=== PATIENT | female | born 1940 | race Caucasian/White ===

== ENCOUNTER 2018-10-01 11:32 | Inpatient (IN) | payer MEDICARE, OTHER ==
--- NOTE | 2018-10-01 11:47 | ER Document Report ---
ED General - General Chief Complaint: Hip Pain Stated Complaint: FALL/LEFT HIP PAIN Time Seen by Provider: 10/01/18 11:41 Mode of Arrival: Medic Information source: Patient, Relative - daughter, Emergency Med Personnel Notes: Patient presents to the emergency department with left-sided hip pain. Reports she was seen in the house with her walker when she tripped over a wooden transition on the floor. She has not denies being dizzy when she fell. Reports she just was not looking where she was going. She reports she usually looks down when she walks but she was in a hurry today. She reports she did not hit her head. No other symptoms such nausea vomiting. She reports the medication they gave her by EMS helped with the pain TRAVEL OUTSIDE OF THE [place] IN LAST 30 DAYS: No - HPI Onset: Just prior to arrival Onset/Duration: Persistent Associated symptoms: None Exacerbated by: Movement Relieved by: Denies Similar symptoms previously: No Recently seen / treated by doctor: No - Related Data Allergies/Adverse Reactions: No Known Allergies Allergy (Verified 10/11/13 13:58) Past Medical History - General Information source: Patient, Relative, Emergency Med Personnel - Social History Smoking Status: Unknown if Ever Smoked Cigarette use (# per day): No Frequency of alcohol use: None Drug Abuse: None Lives with: Family Family History: Reviewed & Not Pertinent - Past Medical History Cardiac Medical History: Reports: Hx Hypertension Denies: Hx Coronary Artery Disease, Hx Heart Attack Pulmonary Medical History: Denies: Hx Asthma, Hx Bronchitis, Hx COPD, Hx Pneumonia Neurological Medical History: Reports: Hx Seizures. Denies: Hx Cerebrovascular Accident Renal/ Medical History: Denies: Hx Peritoneal Dialysis Malignancy Medical History: Reports: Hx Breast Cancer GI Medical History: Denies: Hx Hepatitis, Hx Hiatal Hernia, Hx Ulcer Musculoskeletal Medical History: Reports Hx Arthritis Infectious Medical History: Denies: Hx Hepatitis Past Surgical History: Reports: Hx Appendectomy, Hx Hysterectomy, Hx Mastectomy - left. Denies: Hx Open Heart Surgery, Hx Pacemaker - Immunizations Hx Diphtheria, Pertussis, Tetanus Vaccination: Yes - 2010 Review of Systems - Review of Systems Notes: Review HPI for review of systems., All other systems negative Physical Exam - Vital signs Vitals: Resp Pulse Ox 16 89 L 10/01/18 11:37 10/01/18 11:37 - General General appearance: Alert, Anxious In distress: None - HEENT Head: Normocephalic Eyes: Normal Extraocular movements intact: Yes Neck: Normal, Supple. No: Lymphadenopathy - Respiratory Respiratory status: No respiratory distress Chest status: Nontender Breath sounds: Normal Chest palpation: Normal - Cardiovascular Rhythm: Regular Heart sounds: Normal auscultation Murmur: No - Abdominal Inspection: Normal Distension: No distension Bowel sounds: Normal Tenderness: Nontender Organomegaly: No organomegaly - Extremities General upper extremity: Normal ROM Hip: Tender - Left hip tender to palpate, left leg shortening, good pedal pulse, normal cap refill, Unable to bear weight - Neurological Neuro grossly intact: Yes Cognition: Normal Orientation: AAOx4 Nancy Coma Scale Eye Opening: Spontaneous [place] Coma Scale Verbal: Oriented [place] Coma Scale Motor: Obeys Commands Nancy Coma Scale Total: 15 Speech: Normal - Psychological Associated symptoms: Normal affect, Normal mood - Skin Skin Temperature: Warm Skin Moisture: Dry Skin Color: Normal Course - Re-evaluation Re-evalutation: 10/01/18 12:40 8-year-old female presents today with left hip pain after falling. She is relatively healthy with history of seizures. Family reports no seizures in over a year. She also has history of breast cancer with a left mastectomy. She reports she was walking uses a walker and usually looks down when she is walking but today she did not. She reports with a laugh that she was in too much of a hurry. fracture left hip. Dr. Miles contacted. He requests patient be admitted to the hospitalist services and basic labs to be done for OR tomorrow. Dr. Encinas contacted for admission. He requests all labs to be done before he accepts patient 10/01/18 12:50 Family updated on patient's plan of care to be admitted to go the OR tomorrow. They would like to bring patient in her own medications. 10/01/18 Dr. Ryder contacted again with results of the lab. He accepts admission. He was aware patient would like to bring her own medications. Dictation of this chart was performed using voice recognition software; therefore, there may be some unintended grammatical errors. - Vital Signs Vital signs: Temp Pulse Resp BP Pulse Ox 98.4 F 60 14 149/65 H 94 10/01/18 11:50 10/01/18 11:50 10/01/18 13:02 10/01/18 13:02 10/01/18 13:02 - Laboratory Result Diagrams: 10/01/18 13:01 10/01/18 13:01 Laboratory results interpreted by me: 10/01/18 13:01 Sodium 136.9 L Glucose 112 H AST 39 H - Diagnostic Test Radiology reviewed: Image reviewed, Reports reviewed - EXAM DESCRIPTION: CT CERVICAL SPINE WITHOUT COMPLETED DATE/TIME: 10/01/2018 12:12 pm REASON FOR STUDY: fall COMPARISON: None. TECHNIQUE: Axial images acquired through the cervical spine without intravenous contrast. Images reviewed with lung, soft tissue and bone windows. Reconstructed coronal and sagittal MPR images reviewed. Images stored on PACS. All CT scanners at this facility use dose modulation, iterative reconstruction, and/or weight based dosing when appropriate to reduce radiation dose to as low as reasonably achievable (ALARA). [facility]: Dose Right [facility]: CareDose [facility]: Dose Right [facility]: Teradose 4D [facility]: Smart [employer] RADIATION DOSE: CT Rad equipment meets quality standard of care and radiation dose reduction techniques were employed. CTDIvol: 14.7 mGy. DLP: 284 mGy-cm. mGy. LIMITATIONS: None. FINDINGS: ALIGNMENT: Grade 1 anterolisthesis C4 relative to C5. MINERALIZATION: Osteopenia. VERTEBRAL BODIES: No fractures or dislocation. DISCS: Multilevel disc space narrowing with osteophytes. FACETS, LATERAL MASSES, POSTERIOR ELEMENTS: Facet arthropathy. No fractures. No dislocation. No acute findings. HARDWARE: None in the spine. VISUALIZED RIBS: No fractures. LUNG APICES AND SOFT TISSUES: No significant or acute findings. OTHER: No other significant finding. IMPRESSION: CHRONIC DEGENERATIVE CHANGES. NO ACUTE FINDINGS. TECHNICAL DOCUMENTATION: JOB ID: [id number] Quality ID # [id number]: Final reports with documentation of one or more dose reduction techniques (e.g., Automated exposure control, adjustment of the mA and/or kV according to patient size, use of iterative reconstruction technique) 2010 [employer]- All Rights Reserved Reading location - IP/workstation name: [email or web address] Dictated by: YI LORA MD 1211 CC: MARCIA ASIF NP > 10/01/18 1224 Principal [employer]school Babysitter Name: YI LORA Provider ID: [email or web address] EXAM DESCRIPTION: CHEST SINGLE VIEW COMPLETED DATE/TIME: 10/01/2018 12:53 pm REASON FOR STUDY: fall COMPARISON: None. EXAM PARAMETERS: NUMBER OF VIEWS: One view. TECHNIQUE: Single frontal radiographic view of the chest acquired. RADIATION DOSE: NA LIMITATIONS: None. FINDINGS: LUNGS AND PLEURA: No opacities, masses or pneumothorax. No pleural effusion. MEDIASTINUM AND HILAR STRUCTURES: No masses. Contour normal. HEART AND VASCULAR STRUCTURES: Heart normal in size. Normal vasculature. BONES: No acute findings. HARDWARE: None in the chest. OTHER: Right axillary clips. IMPRESSION: NO ACUTE RADIOGRAPHIC FINDING IN THE CHEST. TECHNICAL DOCUMENTATION: JOB ID: [id number] [employer]- All Rights Reserved Reading location - IP/workstation name: [email or web address] Dictated by: YI LORA MD 1253 CC: MARCIA ASIF NP > 10/01/18 1328 [employer] Name: YI LORA Provider ID: [email or web address] EXAM DESCRIPTION: HIP LEFT AP/LATERAL COMPLETED DATE/TIME: 10/01/2018 12:03 pm REASON FOR STUDY: bed 1 left hip s/p fall with ?deformity and tender COMPARISON: None. NUMBER OF VIEWS: Two views. TECHNIQUE: AP pelvis and additional frog-leg view of the left hip. LIMITATIONS: None. FINDINGS: Bones are osteopenic. Subcapital fracture left femoral neck impaction. No other fracture identified. IMPRESSION: Subcapital fracture left femoral neck. TECHNICAL DOCUMENTATION: JOB ID: [id number] [employer]- All Rights Reserved Reading location - IP/workstation name: [email or web address] Dictated by: YI LORA MD 1203 CC: MARCIA ASIF NP > 10/01/18 1234 [employer] Bab[employer] Name: YI LORA Provider ID: [email or web address] EXAM DESCRIPTION: CT HEAD WITHOUT COMPLETED DATE/TIME: 10/01/2018 12:12 pm REASON FOR STUDY: fall COMPARISON: None. TECHNIQUE: Axial images acquired through the brain without intravenous contrast. Images reviewed with bone, brain and subdural windows. Additional sagittal and coronal reconstructions were generated. Images stored on PACS. All CT scanners at this facility use dose modulation, iterative reconstruction, and/or weight based dosing when appropriate to reduce radiation dose to as low as reasonably achievable (ALARA). [facility]: Dose Right [facility]: CareDose [facility]: Dose Right [facility]: Teradose 4D [facility]: [employer] RADIATION DOSE: CT Rad equipment meets quality standard of care and radiation dose reduction techniques were employed. CTDIvol: 53.2 mGy. DLP: 1044 mGy-cm.mGy. LIMITATIONS: None. FINDINGS: VENTRICLES: Prominent. CEREBRUM: No masses. No hemorrhage. No midline shift. Areas of low density in the white matter most likely due to chronic micro-vascular ischemic change. No evidence for acute infarction. CEREBELLUM: No masses. No hemorrhage. No alteration of density. No evidence for acute infarction. EXTRAAXIAL SPACES: Age-related involutional change. No fluid collections. No masses. ORBITS AND GLOBE: No intra- or extraconal masses. Normal contour of globe without masses. CALVARIUM: No fracture. PARANASAL SINUSES: No fluid or mucosal thickening. SOFT TISSUES: No mass or hematoma. OTHER: No other significant finding. IMPRESSION: CHRONIC CHANGES OF ATROPHY AND MICROVASCULAR ISCHEMIA. NO ACUTE PROCESS. EVIDENCE OF ACUTE STROKE: NO. TECHNICAL DOCUMENTATION: JOB ID: [id number] Quality ID # [id number]: Final reports with documentation of one or more dose reduction techniques (e.g., Automated exposure control, adjustment of the mA and/or kV according to patient size, use of iterative reconstruction technique) 2010 [employer]- All Rights Reserved Reading location - IP/workstation name: [email or web address] Dictated by: YI LORA MD 1212 CC: MARCIA ASIF NP > 10/01/18 1222 [employer] Bab[employer]itter Name: YI LORA Discharge - Discharge Clinical Impression: Fall Qualifiers: Encounter type: initial encounter Qualified Code(s): W19.XXXA - Unspecified fall, initial encounter Fracture of left hip Qualifiers: Encounter type: initial encounter Fracture type: closed Qualified Code(s): S72.002A - Fracture of unspecified part of neck of left femur, initial encounter for closed fracture Condition: Stable Disposition: ADMITTED INPATIENT Admitting Provider: Huang (Hospitalist)
--- NOTE | 2018-10-01 12:22 | RADIOLOGY REPORT (SQ) ---
EXAM DESCRIPTION: CT HEAD WITHOUT COMPLETED DATE/TIME: 10/01/2018 12:12 pm REASON FOR STUDY: fall COMPARISON: None. TECHNIQUE: Axial images acquired through the brain without intravenous contrast. Images reviewed wi th bone, brain and subdural windows. Additional sagittal and coronal reconstructions were generated. Images stored on PACS. All CT scanners at this facility use dose modulation, iterative reconstruction, and/or weight based d osing when appropriate to reduce radiation dose to as low as reasonably achievable (ALARA). [facility]: Dose Right [facility]: CareDose [facility]: Dose Right [facility]: Teradose 4D [facility]: [employer] RADIATION DOSE: CT Rad equipment meets quality standard of care and radiation dose reduction techniq ues were employed. CTDIvol: 53.2 mGy. DLP: 1044 mGy-cm.mGy. LIMITATIONS: None. FINDINGS: VENTRICLES: Prominent. CEREBRUM: No masses. No hemorrhage. No midline shift. Areas of low density in the white matter mos t likely due to chronic micro-vascular ischemic change. No evidence for acute infarction. CEREBELLUM: No masses. No hemorrhage. No alteration of density. No evidence for acute infarction. EXTRAAXIAL SPACES: Age-related involutional change. No fluid collections. No masses. ORBITS AND GLOBE: No intra- or extraconal masses. Normal contour of globe without masses. CALVARIUM: No fracture. PARANASAL SINUSES: No fluid or mucosal thickening. SOFT TISSUES: No mass or hematoma. OTHER: No other significant finding. IMPRESSION: CHRONIC CHANGES OF ATROPHY AND MICROVASCULAR ISCHEMIA. NO ACUTE PROCESS. EVIDENCE OF ACUTE STROKE: NO. TECHNICAL DOCUMENTATION: JOB ID: [id number] Quality ID # 436: Final reports with documentation of one or more dose reduction techniques (e.g., Au tomated exposure control, adjustment of the mA and/or kV according to patient size, use of iterative reconstruction technique) 2010 [employer]- All Rights Reserved Reading location - IP/workstation name: [email or web address]
--- NOTE | 2018-10-01 12:24 | RADIOLOGY REPORT (SQ) ---
EXAM DESCRIPTION: CT CERVICAL SPINE WITHOUT COMPLETED DATE/TIME: 10/01/2018 12:12 pm REASON FOR STUDY: fall COMPARISON: None. TECHNIQUE: Axial images acquired through the cervical spine without intravenous contrast. Images re viewed with lung, soft tissue and bone windows. Reconstructed coronal and sagittal MPR images review ed. Images stored on PACS. All CT scanners at this facility use dose modulation, iterative reconstruction, and/or weight based d osing when appropriate to reduce radiation dose to as low as reasonably achievable (ALARA). [facility]: Dose Right [facility]: CareDose [facility]: Dose Right [facility]: Teradose 4D [facility]: [employer] RADIATION DOSE: CT Rad equipment meets quality standard of care and radiation dose reduction techniq ues were employed. CTDIvol: 14.7 mGy. DLP: 284 mGy-cm. mGy. LIMITATIONS: None. FINDINGS: ALIGNMENT: Grade 1 anterolisthesis C4 relative to C5. MINERALIZATION: Osteopenia. VERTEBRAL BODIES: No fractures or dislocation. DISCS: Multilevel disc space narrowing with osteophytes. FACETS, LATERAL MASSES, POSTERIOR ELEMENTS: Facet arthropathy. No fractures. No dislocation. No ac pam findings. HARDWARE: None in the spine. VISUALIZED RIBS: No fractures. LUNG APICES AND SOFT TISSUES: No significant or acute findings. OTHER: No other significant finding. IMPRESSION: CHRONIC DEGENERATIVE CHANGES. NO ACUTE FINDINGS. TECHNICAL DOCUMENTATION: JOB ID: [id number] Quality ID # [id number]: Final reports with documentation of one or more dose reduction techniques (e.g., Au tomated exposure control, adjustment of the mA and/or kV according to patient size, use of iterative reconstruction technique) 2010 [employer]- All Rights Reserved Reading location - IP/workstation name: [email or web address]
--- NOTE | 2018-10-01 12:34 | RADIOLOGY REPORT (SQ) ---
EXAM DESCRIPTION: HIP LEFT AP/LATERAL COMPLETED DATE/TIME: 10/01/2018 12:03 pm REASON FOR STUDY: bed 1 left hip s/p fall with ?deformity and tender COMPARISON: None. NUMBER OF VIEWS: Two views. TECHNIQUE: AP pelvis and additional frog-leg view of the left hip. LIMITATIONS: None. FINDINGS: Bones are osteopenic. Subcapital fracture left femoral neck impaction. No other fracture identified. IMPRESSION: Subcapital fracture left femoral neck. TECHNICAL DOCUMENTATION: JOB ID: [id number] [employer]- All Rights Reserved Reading location - IP/workstation name: [email or web address]
[2018-10-01] MEDS ORDERED: FENTANYL CITRATE INJ/PF 100 MCG/2 ML AMPUL IV ONE (12:37)
[2018-10-01 13:19] LABS: ABSOLUTE EOSINOPHILS # (AUTO) 0.1 10^3/uL (0.0-0.6); ABSOLUTE LYMPHOCYTES (AUTO) 1.2 10^3/uL (0.5-4.7); ABSOLUTE MONOCYTES (AUTO) 0.5 10^3/uL (0.1-1.4); ABSOLUTE NEUT (AUTO) 5.8 10^3/uL (1.7-8.2); BASOPHILS % (AUTO) 0.5 % (0-2); EOSINOPHILS % (AUTO) 0.7 % (0-6); HEMATOCRIT 38.4 % (36.0-47.0); HEMOGLOBIN 13.4 g/dL (12.0-15.5); LYMPHOCYTES % (AUTO) 15.9 % (13-45); MEAN CORPUSCULAR HEMOGLOBIN 30.2 pg (27.0-33.4); MEAN CORPUSCULAR HGB CONC 34.8 g/dL (32.0-36.0); MEAN CORPUSCULAR VOLUME 87 fl (80-97); MONOCYTES % (AUTO) 6.1 % (3-13); PLATELET COUNT 233 10^3/uL (150-450); RED BLOOD COUNT 4.42 10^6/uL (3.72-5.28); RED CELL DISTRIBUTION WIDTH 12.8 % (11.5-14.0); SEGMENTED NEUTROPHILS % (AUTO) 76.8 % (42-78); TOTAL CELLS COUNTED % (AUTO) 100 %; WHITE BLOOD COUNT 7.6 10^3/uL (4.0-10.5)
--- NOTE | 2018-10-01 13:28 | RADIOLOGY REPORT (SQ) ---
EXAM DESCRIPTION: CHEST SINGLE VIEW COMPLETED DATE/TIME: 10/01/2018 12:53 pm REASON FOR STUDY: fall COMPARISON: None. EXAM PARAMETERS: NUMBER OF VIEWS: One view. TECHNIQUE: Single frontal radiographic view of the chest acquired. RADIATION DOSE: NA LIMITATIONS: None. FINDINGS: LUNGS AND PLEURA: No opacities, masses or pneumothorax. No pleural effusion. MEDIASTINUM AND HILAR STRUCTURES: No masses. Contour normal. HEART AND VASCULAR STRUCTURES: Heart normal in size. Normal vasculature. BONES: No acute findings. HARDWARE: None in the chest. OTHER: Right axillary clips. IMPRESSION: NO ACUTE RADIOGRAPHIC FINDING IN THE CHEST. TECHNICAL DOCUMENTATION: JOB ID: [id number] [employer]- All Rights Reserved Reading location - IP/workstation name: [email or web address]
[2018-10-01 13:32] LABS: ALANINE AMINOTRANSFERASE 32 U/L (9-52); ALBUMIN 4.3 g/dL (3.5-5.0); ALKALINE PHOSPHATASE 76 U/L (38-126); ANION GAP 8 (5-19); ASPARTATE AMINO TRANSFERASE 39 U/L (14-36); BILIRUBIN,DIRECT 0.2 mg/dL (0.0-0.4); BILIRUBIN,TOTAL 0.7 mg/dL (0.2-1.3); BLOOD UREA NITROGEN 14 mg/dL (7-20); CALCIUM 9.8 mg/dL (8.4-10.2); CARBON DIOXIDE 23 mmol/L (22-30); CHLORIDE 106 mmol/L (98-107); GLUCOSE 112 mg/dL (75-110); POTASSIUM 4.1 mmol/L (3.6-5.0); SODIUM 136.9 mmol/L (137-145); TOTAL PROTEIN 7.4 g/dL (6.3-8.2)
[2018-10-01] MEDS ORDERED: LAMOTRIGINE 100 MG TABLET PO SCH (14:00)
[2018-10-01] MEDS ORDERED: (PENDING PHARMACY ID) (Vitamin E [Vitamin E] 400 UNIT) PO SCH (14:30)
[2018-10-01] MEDS ORDERED: LAMOTRIGINE 300 MG PO SCH (14:30)
[2018-10-01] MEDS ORDERED: (PENDING PHARMACY ID) (Escitalopram Oxalate [Lexapro] 5 MG) PO SCH (14:30)
[2018-10-01] MEDS ORDERED: IPRATROPIUM/ALBUTEROL 0.5-2.5 MG/3 ML AMPUL NEB ONE (15:00)
--- NOTE | 2018-10-01 15:00 | PDOC H&P ---
History of Present Illness Admission Date/PCP: BYRON ROA MD Patient complains of: History of fall with a left hip fracture History of Present Illness: SUSANNA MICHELLE is a 78 year old female with history of seizure disorder, rt breast cancer s/p mastectomy, anxiety, depression came to the emergency room after a fall at home. As per the family patient is on the floor for 5 minutes she tripped and fell. She was on the floor and noticed for 5 minutes. Complaining of left hip pain. Denies any head injuries denies any chest pains denies any loss of consciousness. Denies any other complaints. Brought to the emergency room in the emergency room work-up was done found to have a left hip fracture and medical consult was done. Nurse practitioner Malvin Mcintyre called me requesting for admission without labs. I politely requested her that to clear the patient for surgery needed labs. 1 hour later she called me back with a CBC and chemistry but no PT/INR. I am going to place the order for PT/INR. As per Dr. Cha, he try to get information from the ER provider why the labs were not done ,apparently malvin mcintyre hang up on him. Past Medical History Cardiac Medical History: Reports: Hypertension Denies: Coronary Artery Disease, Myocardial Infarction Pulmonary Medical History: Denies: Asthma, Bronchitis, Chronic Obstructive Pulmonary Disease (COPD), Pneumonia Neurological Medical History: Reports: Seizures Malignancy Medical History: Reports: Breast Cancer GI Medical History: Denies: Hepatitis, Hiatal Hernia Musculoskeltal Medical History: Reports: Arthritis Hematology: Denies: Anemia, Sickle Cell Disease Past Surgical History Past Surgical History: Reports: Appendectomy, Hysterectomy, Mastectomy - left Denies: Amputation, Pacemaker Social History Information Source: Patient Lives with: Family Smoking Status: Unknown if Ever Smoked Hx Recreational Drug Use: No Hx Prescription Drug Abuse: No - Advance Directive Resuscitation Status: Full Code Family History Family History: Reviewed & Not Pertinent Parental Family History Reviewed: Yes - Family history of diabetes hypertension and breast cancer. Children Family History Reviewed: Yes Sibling(s) Family History Reviewed.: Yes Medication/Allergy Allergies/Adverse Reactions: No Known Allergies Allergy (Verified 10/11/13 13:58) Physical Exam Vital Signs: Temp Pulse Resp BP Pulse Ox 98.4 F 60 14 149/65 H 94 10/01/18 11:50 10/01/18 11:50 10/01/18 13:02 10/01/18 13:02 10/01/18 13:02 Intake & Output 09/30/18 10/01/18 10/02/18 06:59 06:59 06:59 Weight 82.4 kg General appearance: PRESENT: no acute distress Head exam: PRESENT: atraumatic Eye exam: PRESENT: PERRLA Mouth exam: PRESENT: moist, tongue midline Teeth exam: PRESENT: poor dentation Neck exam: ABSENT: carotid bruit, JVD, lymphadenopathy, thyromegaly Respiratory exam: PRESENT: decreased breath sounds Cardiovascular exam: PRESENT: RRR. ABSENT: diastolic murmur, rubs, systolic murmur GI/Abdominal exam: PRESENT: normal bowel sounds, soft. ABSENT: distended, guarding, mass, organolmegaly, rebound, tenderness Rectal exam: PRESENT: deferred Extremities exam: PRESENT: full ROM, other - Left leg was shortened and the foot is turned outwards.. ABSENT: calf tenderness, clubbing, pedal edema Neurological exam: PRESENT: alert, altered, awake, CN II-XII grossly intact Psychiatric exam: PRESENT: appropriate affect, normal mood. ABSENT: homicidal ideation, suicidal ideation Results Laboratory Results: 10/01/18 13:01 10/01/18 13:01 10/01/18 10/01/18 13:01 13:01 WBC 7.6 RBC 4.42 Hgb 13.4 Hct 38.4 MCV 87 MCH 30.2 MCHC 34.8 RDW 12.8 Plt Count 233 Seg Neutrophils % 76.8 Lymphocytes % 15.9 Monocytes % 6.1 Eosinophils % 0.7 Basophils % 0.5 Absolute Neutrophils 5.8 Absolute Lymphocytes 1.2 Absolute Monocytes 0.5 Absolute Eosinophils 0.1 Absolute Basophils 0.0 Sodium 136.9 L Potassium 4.1 Chloride 106 Carbon Dioxide 23 Anion Gap 8 BUN 14 Creatinine 0.90 Est GFR ( Amer) > 60 Est GFR (Non-Af Amer) > 60 Glucose 112 H Calcium 9.8 Total Bilirubin 0.7 AST 39 H ALT 32 Alkaline Phosphatase 76 Total Protein 7.4 Albumin 4.3 Impressions: Hip X-Ray 10/01/18 00:00 IMPRESSION: Subcapital fracture left femoral neck. Cervical Spine CT 10/01/18 11:46 IMPRESSION: CHRONIC DEGENERATIVE CHANGES. NO ACUTE FINDINGS. Head CT 10/01/18 11:46 IMPRESSION: CHRONIC CHANGES OF ATROPHY AND MICROVASCULAR ISCHEMIA. NO ACUTE PROCESS. EVIDENCE OF ACUTE STROKE: NO. Chest X-Ray 10/01/18 12:40 IMPRESSION: NO ACUTE RADIOGRAPHIC FINDING IN THE CHEST. Assessment and Plan - Diagnosis (1) Fracture of left hip Qualifiers: Encounter type: initial encounter Fracture type: closed Qualified Code(s): S72.002A - Fracture of unspecified part of neck of left femur, initial encounter for closed fracture Is this a current diagnosis for this admission?: Yes Plan: 10/01/2018-patient to going to be admitted to telemetry. Consultation with Ortho was done. She is going to be n.p.o. for midnight. PT/INR was requested. GI prophylaxis was initiated not on a DVT prophylaxis for surgery tomorrow morning. Started on IV morphine 2 mg every 4 PRN for pain. Etienne's catheter was requested. To repeat the labs tomorrow. The head was done which was negative for acute pathology cervical spine a CT was done negative for acute pathology chest x-ray was normal study. EKG shows sinus rhythm without any abnormalities. PT OT social media marketer consult was requested for possible placement. (2) Fall Qualifiers: Encounter type: initial encounter Qualified Code(s): W19.XXXA - Unspecified fall, initial encounter Is this a current diagnosis for this admission?: Yes Plan: 10/01/2018-patient came in with fall with left hip fracture. She is going to be admitted to telemetry patient can go to the surgery with moderate risk. PT consult is going to be requested social media marketer consult is going to be requested for possible placement in rehab. (3) Seizure disorder Is this a current diagnosis for this admission?: No Plan: 10/01/2018-patient has history of seizure disorder on Keppra and Lamictal at home patient is insisting on taking brand-name Lamictal during the hospital stay I discussed the issue with the Carolyn and the pharmacy patient can take her home medications Lamictal during the hospital stay. Aspiration fall seizure precautions are requested. As per the patient and family last seizure is 1 year ago. Seizures are started in 2000 and patient follow-up with her neurologist and [facility] they do not know why she had a seizures. No obvious cause was found. (4) Breast cancer Is this a current diagnosis for this admission?: No Plan: 10/01/2018-patient has history of breast cancer status post right mastectomy. Presently she is not on any chemotherapy or radiation. Requested the nurse to not to draw the blood from the right arm. - Time Time Spent with patient: 25-34 minutes Medications reviewed and adjusted accordingly: Yes Anticipated discharge: SNF
[2018-10-01] MEDS: MORPHINE SULFATE 10 MG/ML INJ IV PRN ×2 (15:04→18:51)
[2018-10-01] MEDS: ONDANSETRON HCL INJ/PF 4 MG/2 ML SDV IV PRN (15:05)
[2018-10-01 15:06] LABS: CREATINE KINASE MB 0.72 ng/mL (<4.55)
[2018-10-01 15:12] LABS: TROPONIN I < 0.012 ng/mL
[2018-10-01] MEDS ORDERED: PANTOPRAZOLE SODIUM 40 MG TABLET.DR PO SCH (16:00)
[2018-10-01] MEDS ORDERED: ESCITALOPRAM OXALATE 10 MG TABLET PO SCH (16:00)
[2018-10-01] MEDS ORDERED: OSTEO BI FLEX PO SCH (18:00)
[2018-10-01] MEDS ORDERED: B12 PO SCH (18:00)
[2018-10-01] MEDS ORDERED: CALCIUM PO SCH (18:00)
[2018-10-01] MEDS ORDERED: (PENDING PHARMACY ID) (Omega-3 Fatty Acids/Fish Oil [Fish Oil 1,000 Mg Capsule] 1 EACH) PO SCH (18:00)
[2018-10-01] MEDS ORDERED: [UNRECOGNIZED DRUG - OTHER] PO SCH (18:00)
[2018-10-01] MEDS ORDERED: B6 PO SCH (18:00)
[2018-10-01] MEDS ORDERED: BORON PO SCH (18:00)
[2018-10-01] MEDS ORDERED: D3 PO SCH (18:00)
[2018-10-01] MEDS ORDERED: LEVETIRACETAM 500 MG TABLET PO SCH (18:00)
[2018-10-01] MEDS ORDERED: MAG PO SCH (18:00)
[2018-10-01] MEDS ORDERED: OMEGA-3 ACID ETHYL ESTERS 1 GM CAPSULE PO SCH (18:00)
[2018-10-01 18:27] LABS: APPEARANCE,URINE SLIGHTLY-CLOUDY; BILIRUBIN,URINE NEGATIVE (NEGATIVE); COLOR,URINE YELLOW; GLUCOSE, URINE NEGATIVE (NEGATIVE); KETONES,URINE NEGATIVE (NEGATIVE); LEUKOCYTE ESTERASE,URINE TRACE (NEGATIVE); NITRITE,URINE POSITIVE (NEGATIVE); PROTEIN,URINE NEGATIVE (NEGATIVE); URINE SPECIFIC GRAVITY 1.014; UROBILINOGEN,URINE NEGATIVE mg/dL (<2.0)
--- NOTE | 2018-10-01 18:58 | EKG REPORT ---
SEVERITY:- ABNORMAL ECG - SINUS RHYTHM LEFT ANTERIOR FASCICULAR BLOCK BORDERLINE R WAVE PROGRESSION, ANTERIOR LEADS : Confirmed by: Melissa Oseguera MD 01-Oct-2018 18:57:46
[2018-10-01 19:08] LABS: CREATINE KINASE MB 0.72 ng/mL (<4.55)
[2018-10-01 19:12] LABS: TROPONIN I < 0.012 ng/mL
[2018-10-01] MEDS: PANTOPRAZOLE SODIUM 40 MG TABLET.DR PO SCH (21:08)
[2018-10-01] MEDS: ESCITALOPRAM OXALATE 10 MG TABLET PO SCH (21:08)
[2018-10-01] MEDS: SIMVASTATIN 40 MG TABLET PO SCH (21:08)
[2018-10-01] MEDS: OMEGA-3 ACID ETHYL ESTERS 1 GM CAPSULE PO SCH (21:08)
[2018-10-01] MEDS ORDERED: SIMVASTATIN 40 MG TABLET PO SCH (22:00)
[2018-10-01] MEDS ORDERED: SIMVASTATIN 40 MG PO SCH (22:00)
[2018-10-02] MEDS ORDERED: CEFAZOLIN 2 GM/D5W RTU 50 ML IV SCH
[2018-10-02] MEDS: MORPHINE SULFATE 10 MG/ML INJ IV PRN ×3 (01:02→15:38)
[2018-10-02 01:55] LABS: TROPONIN I < 0.012 ng/mL
[2018-10-02] MEDS ORDERED: GLUCAGON,HUMAN RECOMB 1 MG INJ SUBCUT PRN (03:26)
[2018-10-02] MEDS ORDERED: DEXTROSE 40% GEL 15 GM TUBE PO PRN ×2 (03:26)
[2018-10-02] MEDS ORDERED: DEXTROSE 50%-WATER 25 GM/50 ML DISP.SYRIN IV PRN ×2 (03:26)
[2018-10-02 04:52] LABS: ABSOLUTE EOSINOPHILS # (AUTO) 0.1 10^3/uL (0.0-0.6); ABSOLUTE LYMPHOCYTES (AUTO) 1.4 10^3/uL (0.5-4.7); ABSOLUTE MONOCYTES (AUTO) 0.7 10^3/uL (0.1-1.4); BASOPHILS % (AUTO) 0.4 % (0-2); EOSINOPHILS % (AUTO) 1.5 % (0-6); HEMATOCRIT 38.4 % (36.0-47.0); HEMOGLOBIN 12.9 g/dL (12.0-15.5); LYMPHOCYTES % (AUTO) 17.3 % (13-45); MEAN CORPUSCULAR HGB CONC 33.7 g/dL (32.0-36.0); MEAN CORPUSCULAR VOLUME 89 fl (80-97); MONOCYTES % (AUTO) 8.2 % (3-13); PLATELET COUNT 232 10^3/uL (150-450); RED BLOOD COUNT 4.31 10^6/uL (3.72-5.28); RED CELL DISTRIBUTION WIDTH 12.7 % (11.5-14.0); SEGMENTED NEUTROPHILS % (AUTO) 72.6 % (42-78); TOTAL CELLS COUNTED % (AUTO) 100 %; WHITE BLOOD COUNT 8.3 10^3/uL (4.0-10.5)
[2018-10-02 04:58] LABS: INTERNATIONAL RATION (INR) 1.03; PROTHROMBIN TIME 13.5 SEC (11.4-15.4)
[2018-10-02 05:18] LABS: ALANINE AMINOTRANSFERASE 24 U/L (9-52); ALBUMIN 4.1 g/dL (3.5-5.0); ALKALINE PHOSPHATASE 70 U/L (38-126); ANION GAP 9 (5-19); ASPARTATE AMINO TRANSFERASE 32 U/L (14-36); BILIRUBIN,DIRECT 0.3 mg/dL (0.0-0.4); BILIRUBIN,TOTAL 0.7 mg/dL (0.2-1.3); BLOOD UREA NITROGEN 15 mg/dL (7-20); CALCIUM 9.5 mg/dL (8.4-10.2); CARBON DIOXIDE 29 mmol/L (22-30); CHLORIDE 102 mmol/L (98-107); CHOLESTEROL 221.52 mg/dL (0-200); GLUCOSE 112 mg/dL (75-110); POTASSIUM 4.2 mmol/L (3.6-5.0); SODIUM 140.2 mmol/L (137-145); TRIGLYCERIDES 250 mg/dL (<150)
[2018-10-02 05:29] LABS: DIRECT LDL 100 mg/dL (<100)
--- NOTE | 2018-10-02 07:57 | PDOC CONSULTATION ---
Consultation Consult Date: 10/02/18 Attending physician:: STEPHANIE NORMAN Provider Consulted: MICKY NATHAN History of Present Illness Admission Date/PCP: 10/01/18 14:50 BYRON ROA MD Patient complains of: Left hip pain History of Present Illness: SUSANNA MICHELLE is a 78 year old female who typically ambulates with a rolling walker and a history of breast cancer was ambulating yesterday when her foot got caught on a threshold resulting in a fall onto her left hip. According to family she was down for approximately 5 minutes until found and was only been able it. Patient was brought to the emergency room where x-rays demonstrated femoral neck fracture. Patient was admitted to the hospital service. Patient states pain is worse with motion. Denies numbness or tingling. Pain has improved with current pain regimen. Pain 4/10. Past Medical History Cardiac Medical History: Reports: Hypertension Denies: Coronary Artery Disease, Myocardial Infarction Pulmonary Medical History: Denies: Asthma, Bronchitis, Chronic Obstructive Pulmonary Disease (COPD), Pneumonia Neurological Medical History: Reports: Seizures Malignancy Medical History: Reports: Breast Cancer GI Medical History: Denies: Hepatitis, Hiatal Hernia Musculoskeltal Medical History: Reports: Arthritis Psychiatric Medical History: Denies: Depression Hematology: Denies: Anemia, Sickle Cell Disease Past Surgical History Past Surgical History: Reports: Appendectomy, Hysterectomy, Mastectomy - left Denies: Amputation, Pacemaker Social History Lives with: Family Smoking Status: Never Smoker Frequency of Alcohol Use: None Hx Recreational Drug Use: No Drugs: None Hx Prescription Drug Abuse: No - Advance Directive Resuscitation Status: Full Code Family History Family History: Reviewed & Not Pertinent Parental Family History Reviewed: No Children Family History Reviewed: No Sibling(s) Family History Reviewed.: No Medication/Allergy Home Medications: Calcium Carbonate/Vitamin D3 [Calcium 500 + Vit D Caplet] 1 each PO BID 10/01/18 Escitalopram Oxalate [Lexapro] 5 mg PO QHS 10/01/18 Glucosamine/D3/Boswellia Shila [Osteo Bi-Flex Tablet] 1 each PO DAILY 10/01/18 Lamotrigine [Lamictal] 300 mg PO QAM 10/01/18 Lamotrigine [Lamictal] 400 mg PO QPM 10/01/18 Letrozole [Femara 2.5 Mg Tablet] 2.5 mg PO DAILY 10/01/18 Levetiracetam [Keppra 500 mg Tablet] 1,000 mg PO QAM 10/01/18 Levetiracetam [Keppra 500 mg Tablet] 1,500 mg PO QPM 10/01/18 Magnesium Oxide [Mag-Ox 400 mg Tablet] 400 mg PO DAILY 10/01/18 Multivitamin [One-A-Day Essential] 1 each PO DAILY 10/01/18 [place]-3/Dha/Epa/Fish Oil [Fish Oil 1,000 mg Softgel] 1 each PO BID 10/01/18 Pantoprazole Sodium [Protonix [address] Tablet] 40 mg PO DAILY 10/01/18 Simvastatin [Zocor 40 mg Tablet] 40 mg PO QHS 10/01/18 Vitamin E (Dl, Acetate) [Vitamin E 400 Unit Capsule] 400 unit PO DAILY 10/01/18 Allergies/Adverse Reactions: silver [From Tegaderm AG Mesh] Allergy (Unknown, Verified 10/02/18 03:17) acetaminophen [From Percocet] Allergy (Verified 10/02/18 03:21) oxycodone [From Percocet] Allergy (Verified 10/02/18 03:21) dermabond Allergy (Uncoded 10/02/18 03:21) Review of Systems Constitutional: ABSENT: chills, fever(s), headache(s), weight gain, weight loss Eyes: ABSENT: visual disturbances Ears: ABSENT: hearing changes Cardiovascular: ABSENT: chest pain, dyspnea on exertion, edema, orthropnea, palpitations Respiratory: ABSENT: cough, hemoptysis Gastrointestinal: ABSENT: abdominal pain, constipation, diarrhea, hematemesis, hematochezia, nausea, vomiting Genitourinary: ABSENT: dysuria, hematuria Musculoskeletal: PRESENT: as per HPI Integumentary: ABSENT: rash, wounds Neurological: ABSENT: abnormal gait, abnormal speech, confusion, dizziness, focal weakness, syncope Psychiatric: ABSENT: anxiety, depression, homidical ideation, suicidal ideation Endocrine: ABSENT: cold intolerance, heat intolerance, menstrual abnormalities, polydipsia, polyuria Hematologic/Lymphatic: ABSENT: easy bleeding, easy bruising, lymphadenopathy Physical Exam Vital Signs: Temp Pulse Resp BP Pulse Ox 99.3 F 76 16 123/53 L 93 10/02/18 07:24 10/02/18 07:24 10/02/18 07:24 10/02/18 07:24 10/02/18 07:24 Intake & Output 10/01/18 10/02/18 10/03/18 06:59 06:59 06:59 Intake Total 240 Output Total 300 Balance -60 Weight 82.4 kg General appearance: PRESENT: no acute distress, well-developed, well-nourished Head exam: PRESENT: atraumatic, normocephalic Eye exam: PRESENT: conjunctiva pink, EOMI, PERRLA. ABSENT: scleral icterus Ear exam: PRESENT: normal external ear exam Mouth exam: PRESENT: moist, tongue midline Neck exam: PRESENT: full ROM. ABSENT: carotid bruit, JVD, lymphadenopathy, thyromegaly Respiratory exam: PRESENT: unlabored Cardiovascular exam: PRESENT: RRR. ABSENT: diastolic murmur, rubs, systolic murmur Pulses: PRESENT: normal dorsalis pedis pul, +2 pedal pulses bilateral Vascular exam: PRESENT: normal capillary refill GI/Abdominal exam: PRESENT: normal bowel sounds, soft. ABSENT: distended, guarding, mass, organolmegaly, rebound, tenderness Rectal exam: PRESENT: deferred Musculoskeletal exam: PRESENT: other - Left hip: Short/externally rotated positive logroll no erythema or drainage. Moderate thigh swelling without change, weakness with dorsiflexion/EHL intact plantarflexion. Hypoesthesias on the dorsum of the foot. No calf tenderness. Neurological exam: PRESENT: alert, awake, oriented to person, oriented to place, oriented to time, oriented to situation, CN II-XII grossly intact. ABSENT: motor sensory deficit Psychiatric exam: PRESENT: appropriate affect, normal mood. ABSENT: homicidal ideation, suicidal ideation Skin exam: PRESENT: dry, intact, warm. ABSENT: cyanosis, rash Results Laboratory Results: 10/02/18 04:09 10/02/18 04:09 10/01/18 10/01/18 10/01/18 13:01 13:01 17:55 WBC 7.6 RBC 4.42 Hgb 13.4 Hct 38.4 MCV 87 MCH 30.2 MCHC 34.8 RDW 12.8 Plt Count 233 Seg Neutrophils % 76.8 Lymphocytes % 15.9 Monocytes % 6.1 Eosinophils % 0.7 Basophils % 0.5 Absolute Neutrophils 5.8 Absolute Lymphocytes 1.2 Absolute Monocytes 0.5 Absolute Eosinophils 0.1 Absolute Basophils 0.0 Sodium 136.9 L Potassium 4.1 Chloride 106 Carbon Dioxide 23 Anion Gap 8 BUN 14 Creatinine 0.90 Est GFR ( Amer) > 60 Est GFR (Non-Af Amer) > 60 Glucose 112 H Calcium 9.8 Magnesium Total Bilirubin 0.7 AST 39 H ALT 32 Alkaline Phosphatase 76 Total Protein 7.4 Albumin 4.3 Triglycerides Cholesterol LDL Cholesterol Direct VLDL Cholesterol HDL Cholesterol TSH Urine Color YELLOW Urine Appearance SLIGHTLY-CLOUDY Urine pH 6.0 Ur Specific [place] 1.014 Urine Protein NEGATIVE Urine Glucose (UA) NEGATIVE Urine Ketones NEGATIVE Urine Blood NEGATIVE Urine Nitrite POSITIVE H Ur Leukocyte Esterase TRACE H Urine WBC (Auto) 16 Urine RBC (Auto) 2 10/02/18 10/02/18 10/02/18 04:09 04:09 04:09 WBC 8.3 RBC 4.31 Hgb 12.9 Hct 38.4 MCV 89 MCH 30.0 MCHC 33.7 RDW 12.7 Plt Count 232 Seg Neutrophils % 72.6 Lymphocytes % 17.3 Monocytes % 8.2 Eosinophils % 1.5 Basophils % 0.4 Absolute Neutrophils 6.0 Absolute Lymphocytes 1.4 Absolute Monocytes 0.7 Absolute Eosinophils 0.1 Absolute Basophils 0.0 Sodium 140.2 Potassium 4.2 Chloride 102 Carbon Dioxide 29 Anion Gap 9 BUN 15 Creatinine 1.02 Est GFR ( Amer) > 60 Est GFR (Non-Af Amer) 53 L Glucose 112 H Calcium 9.5 Magnesium 1.8 Total Bilirubin 0.7 AST 32 ALT 24 Alkaline Phosphatase 70 Total Protein 7.0 Albumin 4.1 Triglycerides 250 H Cholesterol 221.52 H LDL Cholesterol Direct 100 VLDL Cholesterol 50.0 H HDL Cholesterol 46 TSH 6.73 H Urine Color Urine Appearance Urine pH Ur Specific [place] Urine Protein Urine Glucose (UA) Urine Ketones Urine Blood Urine Nitrite Ur Leukocyte Esterase Urine WBC (Auto) Urine RBC (Auto) 10/01/18 10/01/18 10/01/18 13:01 13:01 18:20 Creatine Kinase 77 90 CK-MB (CK-2) 0.72 Troponin I < 0.012 NT-Pro-B Natriuret Pep 10/01/18 10/02/18 10/02/18 18:20 00:41 00:41 Creatine Kinase 100 CK-MB (CK-2) 0.72 0.90 Troponin I < 0.012 < 0.012 NT-Pro-B Natriuret Pep 10/02/18 04:09 Creatine Kinase CK-MB (CK-2) Troponin I NT-Pro-B Natriuret Pep 171 Impressions: Hip X-Ray 10/01/18 00:00 IMPRESSION: Subcapital fracture left femoral neck. Cervical Spine CT 10/01/18 11:46 IMPRESSION: CHRONIC DEGENERATIVE CHANGES. NO ACUTE FINDINGS. Head CT 10/01/18 11:46 IMPRESSION: CHRONIC CHANGES OF ATROPHY AND MICROVASCULAR ISCHEMIA. NO ACUTE PROCESS. EVIDENCE OF ACUTE STROKE: NO. Chest X-Ray 10/01/18 12:40 IMPRESSION: NO ACUTE RADIOGRAPHIC FINDING IN THE CHEST. Status: Image reviewed by me - I have reviewed patient's radiographs which demonstrate displaced left femoral neck fracture Assessment & Plan - Diagnosis (1) Left displaced femoral neck fracture Is this a current diagnosis for this admission?: Yes Plan: Patient sustained a left displaced femoral neck fracture and also has history of breast cancer however there is no evidence of lytic lesion on radiographs but intraoperatively will send bone for pathology to confirm no evidence of pathologic fracture. We discussed the operative treatment which includes left hip hemiarthroplasty. After discussing risk and benefits of both operative and nonoperative intervention patient has elected to proceed with operative treatment. We will continue to monitor weakness of dorsiflexion which may be ne urapraxia versus effort based. Risk of surgery procedure include risks anesthetic complications, excessive bleeding, infection, dislocation injury to surrounding nerves, vessels and tendons, bruising, healing difficulties, scar formation, hardware complication, posttraumatic arthritis and any unforseen complication. Patient has been medically optimized per hospitalist.
--- NOTE | 2018-10-02 09:00 | PDOC CONSULTATION ---
Consultation Consult Date: 10/02/18 Provider Consulted: DANIELA LAURA Consult reason:: Hematology/Oncology consultation was requested for patient with a history of breast cancer and new hip fracture after fall. History of Present Illness Admission Date/PCP: 10/01/18 14:50 BYRON ROA MD History of Present Illness: SUSANNA MICHELLE is a 78 year old female who was diagnosed with a Stage III right breast cancer on 04/03/2015. She was treated with right nodified mastectomy, Cytoxan, taxotere, radiation and femara anti-hormonal treatment. She has had no evidence of disease since 11/2015. She has remained on femara. Most recent bone density Nov 08, 2017 showed T-score -1.4 (osteopenia). Patient states that while using her walker, she tripped and fell. She was found to have a fractured hip. Surgery has been planned for this morning. She states that her pain is currently well controlled. Patient's family is at bedside this morning. Patient and family deny any other problems or concerns. Past Medical History Cardiac Medical History: Reports: Hyperlipidema, Hypertension Denies: Coronary Artery Disease, Myocardial Infarction Pulmonary Medical History: Denies: Asthma, Bronchitis, Chronic Obstructive Pulmonary Disease (COPD), Pneumonia Neurological Medical History: Reports: Seizures Malignancy Medical History: Reports: Breast Cancer GI Medical History: Reports: Gastroesophageal Reflux Disease Denies: Hepatitis, Hiatal Hernia Musculoskeltal Medical History: Reports: Arthritis Psychiatric Medical History: Denies: Depression Hematology: Denies: Anemia, Sickle Cell Disease Past Surgical History Past Surgical History: Reports: Appendectomy, Hysterectomy, Mastectomy - right Denies: Amputation, Pacemaker Social History Lives with: Family Smoking Status: Never Smoker Frequency of Alcohol Use: None Hx Recreational Drug Use: No Drugs: None Hx Prescription Drug Abuse: No - Advance Directive Resuscitation Status: Full Code Family History Parental Family History Reviewed: Yes - Mother breast cancer age 76. Children Family History Reviewed: Yes Sibling(s) Family History Reviewed.: Yes Medication/Allergy Home Medications: Calcium Carbonate/Vitamin D3 [Calcium 500 + Vit D Caplet] 1 each PO BID 10/01/18 Escitalopram Oxalate [Lexapro] 5 mg PO QHS 10/01/18 Glucosamine/D3/Boswellia Shila [Osteo Bi-Flex Tablet] 1 each PO DAILY 10/01/18 Lamotrigine [Lamictal] 300 mg PO QAM 10/01/18 Lamotrigine [Lamictal] 400 mg PO QPM 10/01/18 Letrozole [Femara 2.5 Mg Tablet] 2.5 mg PO DAILY 10/01/18 Levetiracetam [Keppra 500 mg Tablet] 1,000 mg PO QAM 10/01/18 Levetiracetam [Keppra 500 mg Tablet] 1,500 mg PO QPM 10/01/18 Magnesium Oxide [Mag-Ox 400 mg Tablet] 400 mg PO DAILY 10/01/18 Multivitamin [One-A-Day Essential] 1 each PO DAILY 10/01/18 [place]-3/Dha/Epa/Fish Oil [Fish Oil 1,000 mg Softgel] 1 each PO BID 10/01/18 Pantoprazole Sodium [Protonix [address] Tablet] 40 mg PO DAILY 10/01/18 Simvastatin [Zocor 40 mg Tablet] 40 mg PO QHS 10/01/18 Vitamin E (Dl, Acetate) [Vitamin E 400 Unit Capsule] 400 unit PO DAILY 10/01/18 Allergies/Adverse Reactions: silver [From Tegaderm AG Mesh] Allergy (Unknown, Verified 10/02/18 03:17) acetaminophen [From Percocet] Allergy (Verified 10/02/18 03:21) oxycodone [From Percocet] Allergy (Verified 10/02/18 03:21) dermabond Allergy (Uncoded 10/02/18 03:21) Review of Systems Constitutional: ABSENT: fever(s), headache(s) Eyes: ABSENT: visual disturbances Ears: ABSENT: hearing changes Nose, Mouth, and Throat: ABSENT: sore throat Cardiovascular: ABSENT: chest pain Respiratory: ABSENT: dyspnea Gastrointestinal: ABSENT: constipation, diarrhea, nausea Genitourinary: ABSENT: dysuria Integumentary: ABSENT: rash Neurological: PRESENT: as per HPI Hematologic/Lymphatic: ABSENT: easy bruising Physical Exam Vital Signs: Temp Pulse Resp BP Pulse Ox 99.3 F 76 16 123/53 L 93 10/02/18 07:24 10/02/18 07:24 10/02/18 07:24 10/02/18 07:24 10/02/18 07:24 Intake & Output 10/01/18 10/02/18 10/03/18 06:59 06:59 06:59 Intake Total 240 Output Total 300 Balance -60 Weight 82.4 kg General appearance: PRESENT: no acute distress, well-developed, well-nourished Exam: 78 year old female. Eye exam: PRESENT: EOMI, PERRLA Mouth exam: PRESENT: tongue midline Neck exam: ABSENT: lymphadenopathy, tenderness Respiratory exam: PRESENT: clear to auscultation oc, unlabored Cardiovascular exam: PRESENT: RRR GI/Abdominal exam: PRESENT: soft. ABSENT: tenderness Extremities exam: ABSENT: pedal edema Neurological exam: PRESENT: alert, awake Psychiatric exam: PRESENT: appropriate affect Skin exam: PRESENT: normal color Results Laboratory Results: 10/02/18 04:09 10/02/18 04:09 10/01/18 10/01/18 10/01/18 13:01 13:01 17:55 WBC 7.6 RBC 4.42 Hgb 13.4 Hct 38.4 MCV 87 MCH 30.2 MCHC 34.8 RDW 12.8 Plt Count 233 Seg Neutrophils % 76.8 Lymphocytes % 15.9 Monocytes % 6.1 Eosinophils % 0.7 Basophils % 0.5 Absolute Neutrophils 5.8 Absolute Lymphocytes 1.2 Absolute Monocytes 0.5 Absolute Eosinophils 0.1 Absolute Basophils 0.0 Sodium 136.9 L Potassium 4.1 Chloride 106 Carbon Dioxide 23 Anion Gap 8 BUN 14 Creatinine 0.90 Est GFR ( Amer) > 60 Est GFR (Non-Af Amer) > 60 Glucose 112 H Calcium 9.8 Magnesium Total Bilirubin 0.7 AST 39 H ALT 32 Alkaline Phosphatase 76 Total Protein 7.4 Albumin 4.3 Triglycerides Cholesterol LDL Cholesterol Direct VLDL Cholesterol HDL Cholesterol TSH Urine Color YELLOW Urine Appearance SLIGHTLY-CLOUDY Urine pH 6.0 Ur Specific [place] 1.014 Urine Protein NEGATIVE Urine Glucose (UA) NEGATIVE Urine Ketones NEGATIVE Urine Blood NEGATIVE Urine Nitrite POSITIVE H Ur Leukocyte Esterase TRACE H Urine WBC (Auto) 16 Urine RBC (Auto) 2 10/02/18 10/02/18 10/02/18 04:09 04:09 04:09 WBC 8.3 RBC 4.31 Hgb 12.9 Hct 38.4 MCV 89 MCH 30.0 MCHC 33.7 RDW 12.7 Plt Count 232 Seg Neutrophils % 72.6 Lymphocytes % 17.3 Monocytes % 8.2 Eosinophils % 1.5 Basophils % 0.4 Absolute Neutrophils 6.0 Absolute Lymphocytes 1.4 Absolute Monocytes 0.7 Absolute Eosinophils 0.1 Absolute Basophils 0.0 Sodium 140.2 Potassium 4.2 Chloride 102 Carbon Dioxide 29 Anion Gap 9 BUN 15 Creatinine 1.02 Est GFR ( Amer) > 60 Est GFR (Non-Af Amer) 53 L Glucose 112 H Calcium 9.5 Magnesium 1.8 Total Bilirubin 0.7 AST 32 ALT 24 Alkaline Phosphatase 70 Total Protein 7.0 Albumin 4.1 Triglycerides 250 H Cholesterol 221.52 H LDL Cholesterol Direct 100 VLDL Cholesterol 50.0 H HDL Cholesterol 46 TSH 6.73 H Urine Color Urine Appearance Urine pH Ur Specific [place] Urine Protein Urine Glucose (UA) Urine Ketones Urine Blood Urine Nitrite Ur Leukocyte Esterase Urine WBC (Auto) Urine RBC (Auto) 10/01/18 10/01/18 10/01/18 13:01 13:01 18:20 Creatine Kinase 77 90 CK-MB (CK-2) 0.72 Troponin I < 0.012 NT-Pro-B Natriuret Pep 10/01/18 10/02/18 10/02/18 18:20 00:41 00:41 Creatine Kinase 100 CK-MB (CK-2) 0.72 0.90 Troponin I < 0.012 < 0.012 NT-Pro-B Natriuret Pep 10/02/18 04:09 Creatine Kinase CK-MB (CK-2) Troponin I NT-Pro-B Natriuret Pep 171 Impressions: Hip X-Ray 10/01/18 00:00 IMPRESSION: Subcapital fracture left femoral neck. Cervical Spine CT 10/01/18 11:46 IMPRESSION: CHRONIC DEGENERATIVE CHANGES. NO ACUTE FINDINGS. Head CT 10/01/18 11:46 IMPRESSION: CHRONIC CHANGES OF ATROPHY AND MICROVASCULAR ISCHEMIA. NO ACUTE PROCESS. EVIDENCE OF ACUTE STROKE: NO. Chest X-Ray 10/01/18 12:40 IMPRESSION: NO ACUTE RADIOGRAPHIC FINDING IN THE CHEST. Assessment & Plan - Diagnosis (1) Breast cancer Qualifiers: Breast location: upper outer quadrant of breast Estrogen receptor status: positive Patient sex: female Laterality: right Qualified Code(s): C50.411 - Malignant neoplasm of upper-outer quadrant of right female breast; Z17.0 - Estrogen receptor positive status [ER+] Is this a current diagnosis for this admission?: No Plan: Currently with no evidence of cancer. She should remain on femara without changes. I agree that pathology specimen at time of surgery would be a great idea to rule out bone mets, but no clinical suspicion of this. (2) Fracture of left hip Qualifiers: Encounter type: initial encounter Fracture type: closed Qualified Code(s): S72.002A - Fracture of unspecified part of neck of left femur, initial encounter for closed fracture Is this a current diagnosis for this admission?: Yes Plan: Agree with plans for surgery. Will need appropriate DVT prophylaxis afterward. Consider starting bone strengthener at her next outpatient appointment for the osteopenia while on Aromatase inhibitor. - Plan Summary Plan Summary: Thank you for this consultation. I will be happy to continue to follow her with you.
[2018-10-02] MEDS ORDERED: RINGERS SOLUTION,LACTATED 1,000 ML IV PRN ×2 (09:02→18:29)
[2018-10-02] MEDS: OMEGA-3 ACID ETHYL ESTERS 1 GM CAPSULE PO SCH ×2 (11:23→21:48)
[2018-10-02] MEDS: LEVETIRACETAM 500 MG TABLET PO SCH (11:23)
--- NOTE | 2018-10-02 11:24 | PDOC PROGRESS REPORT ---
Subjective Progress Note for:: 10/02/18 Subjective:: 78-year-old female with history of breast cancer and seizure disorder admitted with a fall with left hip fracture. She is going for the OR today. Reason For Visit: HIP FRACTURE Physical Exam Vital Signs: Temp Pulse Resp BP Pulse Ox 99.3 F 76 16 123/53 L 93 10/02/18 07:24 10/02/18 07:24 10/02/18 07:24 10/02/18 07:24 10/02/18 07:24 Intake & Output 10/01/18 10/02/18 10/03/18 06:59 06:59 06:59 Intake Total 240 Output Total 300 Balance -60 Weight 82.4 kg General appearance: PRESENT: no acute distress Head exam: PRESENT: atraumatic Eye exam: PRESENT: PERRLA Mouth exam: PRESENT: moist, tongue midline Teeth exam: PRESENT: poor dentation Neck exam: ABSENT: carotid bruit, JVD, lymphadenopathy, thyromegaly Respiratory exam: PRESENT: clear to auscultation oc. ABSENT: rales, rhonchi, wheezes Cardiovascular exam: PRESENT: RRR. ABSENT: diastolic murmur, rubs, systolic murmur GI/Abdominal exam: PRESENT: normal bowel sounds, soft. ABSENT: distended, guarding, mass, organolmegaly, rebound, tenderness Rectal exam: PRESENT: deferred Neurological exam: PRESENT: alert, awake, oriented to person, oriented to place, oriented to time, oriented to situation, CN II-XII grossly intact. ABSENT: motor sensory deficit Psychiatric exam: PRESENT: appropriate affect, normal mood. ABSENT: homicidal ideation, suicidal ideation Results Laboratory Results: 10/02/18 04:09 10/02/18 04:09 10/01/18 10/01/18 10/01/18 13:01 13:01 17:55 WBC 7.6 RBC 4.42 Hgb 13.4 Hct 38.4 MCV 87 MCH 30.2 MCHC 34.8 RDW 12.8 Plt Count 233 Seg Neutrophils % 76.8 Lymphocytes % 15.9 Monocytes % 6.1 Eosinophils % 0.7 Basophils % 0.5 Absolute Neutrophils 5.8 Absolute Lymphocytes 1.2 Absolute Monocytes 0.5 Absolute Eosinophils 0.1 Absolute Basophils 0.0 Sodium 136.9 L Potassium 4.1 Chloride 106 Carbon Dioxide 23 Anion Gap 8 BUN 14 Creatinine 0.90 Est GFR ( Amer) > 60 Est GFR (Non-Af Amer) > 60 Glucose 112 H Calcium 9.8 Magnesium Total Bilirubin 0.7 AST 39 H ALT 32 Alkaline Phosphatase 76 Total Protein 7.4 Albumin 4.3 Triglycerides Cholesterol LDL Cholesterol Direct VLDL Cholesterol HDL Cholesterol TSH Urine Color YELLOW Urine Appearance SLIGHTLY-CLOUDY Urine pH 6.0 Ur Specific [place] 1.014 Urine Protein NEGATIVE Urine Glucose (UA) NEGATIVE Urine Ketones NEGATIVE Urine Blood NEGATIVE Urine Nitrite POSITIVE H Ur Leukocyte Esterase TRACE H Urine WBC (Auto) 16 Urine RBC (Auto) 2 10/02/18 10/02/18 10/02/18 04:09 04:09 04:09 WBC 8.3 RBC 4.31 Hgb 12.9 Hct 38.4 MCV 89 MCH 30.0 MCHC 33.7 RDW 12.7 Plt Count 232 Seg Neutrophils % 72.6 Lymphocytes % 17.3 Monocytes % 8.2 Eosinophils % 1.5 Basophils % 0.4 Absolute Neutrophils 6.0 Absolute Lymphocytes 1.4 Absolute Monocytes 0.7 Absolute Eosinophils 0.1 Absolute Basophils 0.0 Sodium 140.2 Potassium 4.2 Chloride 102 Carbon Dioxide 29 Anion Gap 9 BUN 15 Creatinine 1.02 Est GFR ( Amer) > 60 Est GFR (Non-Af Amer) 53 L Glucose 112 H Calcium 9.5 Magnesium 1.8 Total Bilirubin 0.7 AST 32 ALT 24 Alkaline Phosphatase 70 Total Protein 7.0 Albumin 4.1 Triglycerides 250 H Cholesterol 221.52 H LDL Cholesterol Direct 100 VLDL Cholesterol 50.0 H HDL Cholesterol 46 TSH 6.73 H Urine Color Urine Appearance Urine pH Ur Specific [place] Urine Protein Urine Glucose (UA) Urine Ketones Urine Blood Urine Nitrite Ur Leukocyte Esterase Urine WBC (Auto) Urine RBC (Auto) 10/01/18 10/01/18 10/01/18 13:01 13:01 18:20 Creatine Kinase 77 90 CK-MB (CK-2) 0.72 Troponin I < 0.012 NT-Pro-B Natriuret Pep 10/01/18 10/02/18 10/02/18 18:20 00:41 00:41 Creatine Kinase 100 CK-MB (CK-2) 0.72 0.90 Troponin I < 0.012 < 0.012 NT-Pro-B Natriuret Pep 10/02/18 04:09 Creatine Kinase CK-MB (CK-2) Troponin I NT-Pro-B Natriuret Pep 171 Impressions: Hip X-Ray 10/01/18 00:00 IMPRESSION: Subcapital fracture left femoral neck. Cervical Spine CT 10/01/18 11:46 IMPRESSION: CHRONIC DEGENERATIVE CHANGES. NO ACUTE FINDINGS. Head CT 10/01/18 11:46 IMPRESSION: CHRONIC CHANGES OF ATROPHY AND MICROVASCULAR ISCHEMIA. NO ACUTE PROCESS. EVIDENCE OF ACUTE STROKE: NO. Chest X-Ray 10/01/18 12:40 IMPRESSION: NO ACUTE RADIOGRAPHIC FINDING IN THE CHEST. Assessment and Plan - Diagnosis (1) Fracture of left hip Qualifiers: Encounter type: initial encounter Fracture type: closed Qualified Code(s): S72.002A - Fracture of unspecified part of neck of left femur, initial encounter for closed fracture Is this a current diagnosis for this admission?: Yes Plan: 10/01/2018-patient to going to be admitted to telemetry. Consultation with Ortho was done. She is going to be n.p.o. for midnight. PT/INR was requested. GI prophylaxis was initiated not on a DVT prophylaxis for surgery tomorrow morning. Started on IV morphine 2 mg every 4 PRN for pain. Etienne's catheter was requested. To repeat the labs tomorrow. The head was done which was negative for acute pathology cervical spine a CT was done negative for acute pathology chest x-ray was normal study. EKG shows sinus rhythm without any abnormalities. PT OT rn social services consult was requested for possible placement. 10/02/2018-patient admitted with left hip fracture medically cleared for the surgery. Patient is going to the OR around 4 PM today. Plan is to continue the present management. (2) Fall Qualifiers: Encounter type: initial encounter Qualified Code(s): W19.XXXA - Unspecified fall, initial encounter Is this a current diagnosis for this admission?: Yes Plan: 10/01/2018-patient came in with fall with left hip fracture. She is going to be admitted to telemetry patient can go to the surgery with moderate risk. PT consult is going to be requested rn social services consult is going to be requested for possible placement in rehab. 10/02/2018-patient admitted with history of fall PT consult OT consult rn social services consult was requested. (3) Seizure disorder Is this a current diagnosis for this admission?: No Plan: 10/01/2018-patient has history of seizure disorder on Keppra and Lamictal at home patient is insisting on taking brand-name Lamictal during the hospital stay I discussed the issue with the Carolyn and the pharmacy patient can take her home medications Lamictal during the hospital stay. Aspiration fall seizure p recautions are requested. As per the patient and family last seizure is 1 year ago. Seizures are started in 2000 and patient follow-up with her neurologist and [facility] they do not know why she had a seizures. No obvious cause was found. 10/02/2018-patient has history of seizure disorder causes unknown patient is taking Lamictal and Keppra at home these medications are resumed during this hospital stay. (4) Breast cancer Qualifiers: Breast location: upper outer quadrant of breast Estrogen receptor status: positive Patient sex: female Laterality: right Qualified Code(s): C50.411 - Malignant neoplasm of upper-outer quadrant of right female breast; Z17.0 - Estrogen receptor positive status [ER+] Is this a current diagnosis for this admission?: No - Time Time Spent with patient: 15-24 minutes Medications reviewed and adjusted accordingly: Yes Anticipated discharge: SNF
[2018-10-02] MEDS ORDERED: MIDAZOLAM 2 MG/2 ML INJ ONE (13:45)
[2018-10-02] MEDS ORDERED: EPHEDRINE SULFATE INJ 50 MG/1 ML AMPULE ONE (13:45)
[2018-10-02] MEDS ORDERED: FENTANYL CITRATE INJ/PF 100 MCG/2 ML AMPUL ONE (13:45)
[2018-10-02] MEDS ORDERED: DEXAMETHASONE SOD PHOSPHATE INJ 4 MG/1 ML VIAL ONE (13:46)
[2018-10-02] MEDS ORDERED: PROPOFOL INJ 200 MG/20 ML VIAL IV ONE ×2 (13:46→16:06)
[2018-10-02] MEDS ORDERED: ONDANSETRON HCL INJ/PF 4 MG/2 ML SDV ONE (13:46)
[2018-10-02] MEDS ORDERED: TRANEXAMIC ACID INJ/PF 1,000 MG/10 ML SDV IV ONE ×2 (13:49→13:50)
[2018-10-02] MEDS: LETROZOLE 2.5 MG TABLET PO SCH (15:35)
[2018-10-02] MEDS: VITAMIN E (DL, ACETATE) 400 UNIT CAPSULE PO SCH (15:35)
[2018-10-02] MEDS ORDERED: KETAMINE HCL INJ 500 MG/10 ML VIAL ONE (16:06)
[2018-10-02] MEDS ORDERED: CEFAZOLIN INJ 1 GM VIAL ONE (16:28)
[2018-10-02] MEDS ORDERED: EPINEPHRINE INJ/PF 1 MG/1 ML AMPULE ONE (16:30)
[2018-10-02] MEDS ORDERED: BACITRACIN INJ 50,000 UNIT VIAL IR ONE (17:13)
[2018-10-02] MEDS ORDERED: MEPERIDINE HCL/PF INJ 25 MG/1 ML DISP.SYRIN IV PRN (17:22)
[2018-10-02] MEDS ORDERED: DIPHENHYDRAMINE HCL 50 MG/ML VIAL IV PRN (17:22)
[2018-10-02] MEDS ORDERED: MORPHINE SULFATE 10 MG/ML INJ IV PRN (17:22)
[2018-10-02] MEDS ORDERED: ONDANSETRON HCL INJ/PF 4 MG/2 ML SDV IV PRN (17:22)
[2018-10-02] MEDS ORDERED: FENTANYL CITRATE INJ/PF 100 MCG/2 ML AMPUL IV PRN ×3 (17:22)
[2018-10-02] MEDS ORDERED: PROMETHAZINE HCL INJ 25 MG/1 ML VIAL IV PRN ×2 (17:22)
--- NOTE | 2018-10-02 18:29 | Operative Report ---
Operative Report DATE OF SURGERY: 10/02/18 PREOPERATIVE DIAGNOSIS: Left hip displaced femoral neck fracture POSTOPERATIVE DIAGNOSIS: Same OPERATION: Left hip hemiarthroplasty SURGEON: MICKY NATHAN ANESTHESIA: Spinal TISSUE REMOVED OR ALTERED: Femoral head COMPLICATIONS: None ESTIMATED BLOOD LOSS: 150 cc PROCEDURE: Indication for above procedure: 78-year-old female who tripped on a threshold falling onto her left hip. Patient had inability to weight-bear and was brought to emergency room x-rays demonstrated femoral neck fracture. At that point we discussed treatment options including operative versus nonoperative intervention risks and benefits of the surgical procedure were explained to the patient and family who verbalized understanding consented for surgical procedure. Procedure In Detail: Patient was seen and evaluated in the preoperative holding area. The LEFT lower extremity was initialized and marked. Patient received 2g of Ancef IV for bacterial prophylaxis. Patient was taken back to the operative room where transferred to the operative table and placed under spinal anesthesia. Once t hey were adequately anesthetized patient was placed in the lateral position an axillary roll was placed in nonoperative left lower extremity was carefully padded.. A surgical team debriefing was performed ensuring all instrumentation was available, the surgical procedure was discussed with possible concerns reviewed. The upper extremity was prepped with chlor prep draped in a sterile fashion. A timeout was done identifying correct patient, procedure and extremity everyone in attendance agree with this and verbalized no concerns. A posterior skin incision was made just posterior to the greater trochanter. Dissection was done down to the gluteus umang and iliotibial band fascia this was split in line with the skin incision. Any peripheral vasculature was carefully coagulated. A Charley retractor was placed after palpation of the sciatic nerve and the sciatic nerve was safely retracted from the wound and protected. I then identified the external rotators with the use of a Bovie this was carefully elevated off along with underlying capsule from the neck in a T- shaped capsulotomy was made just superior to the piriformis and tagged The femoral neck was identified and the fracture extended to the lesser trochanter posteriorly and thus any excess bone remaining was carefully removed. I then used the corkscrew to remove the femoral head from the acetabulum which was then measured on the back table. The excess bone was removed and removed the scopes irrigated with normal saline. I then trial the femoral head according to what was measured on the back table and got good fit within the acetabulum. I then turned my attention to femoral preparation. A box osteotome was first used to get laterally along the trochanter. I then used the lateralizing reamer to avoid medialization of the stem and ultimately varus malalignment. I then began broaching with a 0 broach and broached up to a #6 broach which was well fit. I then utilized the calcar reamer reamed out the appropriate level. I began trialing with a #0 neck length and that there was residual instability and limb length inequality and thus a +4 mm neck was utilized. There is no instability with internal rotation/adduction/flexion, sleeping position or external rotation external rotation. Leg lengths were found to be compatible and equal to the other side. At this point the trial implants were removed. The wound was irrigated with normal saline. I then implanted my appropriate size stem the good peripheral fit and placement at my predetermined broach level. I then implanted the final unipolar head. The hip was reduced once again measures stability and good stability throughout all range of motion with no palpable impingement. Leg lengths were equivalent to the nonoperative side. The wound was copiously irrigated with normal saline. Utilizing a #2 FiberWire suture I secured the capsule posteriorly into the trochanter. I then irrigated once again with normal saline. The gluteus umang and tensor fascia jhonny was closed with a running 0 PDS suture. The soft tissue was closed with #1 Vicryl. I then closed the subcutaneous tissues with interrupted 2-0 Vicryl suture. The skin was closed derrick. Wound was dressed with Acticoat 4 x 4's ABD and perforated tape. Patient was then awoken from anesthesia laid supine at which point her leg lengths were once again checked and found to be equal to the nonoperative extremity. Patient was then transferred to the operating stretcher and placed in an abduction pillow. The was no intraoperative complications patient tolerated procedure well was stable to PACU. Postoperative plan: Patient will be started on Xarelto for DVT prophylaxis. She will begin physical therapy on postop day #1. Implants: Accolade II Size 6, 47 Unipolar Head, +4 Neck Length
[2018-10-02] MEDS ORDERED: MAG HYDROX/AL HYDROX/SIMETH SUSP 30 ML UDCUP PO PRN (18:30)
--- NOTE | 2018-10-02 20:05 | RADIOLOGY REPORT (SQ) ---
AP PELVIS AND 2 VIEWS OF LEFT HIP EXAM DATE: 10/02/2018 6:30 PM CDT HISTORY: Post Op Long Cassette in PACU. COMPARISON: 10/01/2018 FINDINGS: Status post left hip hemiarthroplasty with hardware intact. There is overlying soft tissue tissue swelling with subcutaneous air and skin derrick, presumably postsurgical. Generalized osteopenia is present. IMPRESSION: Postoperative changes of left hip hemiarthroplasty.
[2018-10-02] MEDS: PANTOPRAZOLE SODIUM 40 MG TABLET.DR PO SCH (21:48)
[2018-10-02] MEDS: SIMVASTATIN 40 MG TABLET PO SCH (21:48)
[2018-10-02] MEDS: ESCITALOPRAM OXALATE 10 MG TABLET PO SCH (21:49)
[2018-10-02] MEDS: LAMICTAL 200 MG PO SCH (21:53)
[2018-10-03] MEDS ORDERED: CEFAZOLIN 1 GM/D5W RTU 1 GM/50 ML RTUPB IV ONE (00:07)
[2018-10-03] MEDS ORDERED: CEFAZOLIN 2 GM/D5W RTU 2 GM/50 ML RTUPB IV ONE (01:45)
[2018-10-03 06:32] LABS: HEMATOCRIT 30.5 % (36.0-47.0); MEAN CORPUSCULAR HEMOGLOBIN 30.4 pg (27.0-33.4); MEAN CORPUSCULAR HGB CONC 34.7 g/dL (32.0-36.0); MEAN CORPUSCULAR VOLUME 88 fl (80-97); PLATELET COUNT 169 10^3/uL (150-450); RED BLOOD COUNT 3.48 10^6/uL (3.72-5.28); RED CELL DISTRIBUTION WIDTH 12.5 % (11.5-14.0)
[2018-10-03 06:36] LABS: HEMOGLOBIN 10.6 g/dL (12.0-15.5)
[2018-10-03 07:02] LABS: ANION GAP 8 (5-19); BLOOD UREA NITROGEN 14 mg/dL (7-20); CALCIUM 8.7 mg/dL (8.4-10.2); CARBON DIOXIDE 24 mmol/L (22-30); CHLORIDE 104 mmol/L (98-107); GLUCOSE 111 mg/dL (75-110); POTASSIUM 4.2 mmol/L (3.6-5.0); SODIUM 135.8 mmol/L (137-145)
--- NOTE | 2018-10-03 07:56 | PDOC PROGRESS REPORT ---
Subjective Progress Note for:: 10/03/18 Subjective:: Patient lying in bed currently. According to nursing staff she did have some confusion this morning and pulled her IV and catheter out. Patient states her pain is currently tolerable. Denies chest pain or shortness of breath. Reason For Visit: HIP FRACTURE Physical Exam Vital Signs: Temp Pulse Resp BP Pulse Ox 98.7 F 89 18 116/44 L 90 L 10/02/18 21:30 10/03/18 02:00 10/02/18 21:30 10/02/18 21:30 10/02/18 21:30 Intake & Output 10/02/18 10/03/18 10/04/18 06:59 06:59 06:59 Intake Total 240 2100 Output Total 300 1075 Balance -60 1025 Weight 82.4 kg 83.4 kg Musculoskeletal exam: PRESENT: other - Left hip: Dressing clean/dry/intact no erythema or drainage. Moderate thigh swelling without change, intact plantarflexion/dorsiflexion. No sensory deficits. No calf tenderness. Results Laboratory Results: 10/03/18 06:01 10/03/18 06:01 10/03/18 10/03/18 06:01 06:01 WBC 8.0 RBC 3.48 L Hgb 10.6 L D Hct 30.5 L MCV 88 MCH 30.4 MCHC 34.7 RDW 12.5 Plt Count 169 Sodium 135.8 L Potassium 4.2 Chloride 104 Carbon Dioxide 24 Anion Gap 8 BUN 14 Creatinine 0.87 Est GFR ( Amer) > 60 Est GFR (Non-Af Amer) > 60 Glucose 111 H Calcium 8.7 10/01/18 10/01/18 10/01/18 13:01 13:01 18:20 Creatine Kinase 77 90 CK-MB (CK-2) 0.72 Troponin I < 0.012 NT-Pro-B Natriuret Pep 10/01/18 10/02/18 10/02/18 18:20 00:41 00:41 Creatine Kinase 100 CK-MB (CK-2) 0.72 0.90 Troponin I < 0.012 < 0.012 NT-Pro-B Natriuret Pep 10/02/18 04:09 Creatine Kinase CK-MB (CK-2) Troponin I NT-Pro-B Natriuret Pep 171 Impressions: Cervical Spine CT 10/01/18 11:46 IMPRESSION: CHRONIC DEGENERATIVE CHANGES. NO ACUTE FINDINGS. Head CT 10/01/18 11:46 IMPRESSION: CHRONIC CHANGES OF ATROPHY AND MICROVASCULAR ISCHEMIA. NO ACUTE PROCESS. EVIDENCE OF ACUTE STROKE: NO. Chest X-Ray 10/01/18 12:40 IMPRESSION: NO ACUTE RADIOGRAPHIC FINDING IN THE CHEST. Hip X-Ray 10/02/18 18:30 IMPRESSION: Postoperative changes of left hip hemiarthroplasty. Assessment & Plan - Diagnosis (1) Left displaced femoral neck fracture Is this a current diagnosis for this admission?: Yes Plan: Postop day #1 status post left hip hemiarthroplasty 1. Pain control 2. Xarelto for DVT prophylaxis 3. Physical therapy with hip precautions 4. Discharge planning patient will require nursing facility when bed available and medically stable.
--- NOTE | 2018-10-03 08:34 | PDOC PROGRESS REPORT ---
Subjective Progress Note for:: 10/03/18 Subjective:: Patient and daughter tell me that she had the surgery and that all went well, but she has been very confused and "tried to undo everything." SHe denies pain currently. Reason For Visit: HIP FRACTURE Physical Exam Vital Signs: Temp Pulse Resp BP Pulse Ox 98.7 F 89 18 116/44 L 90 L 10/02/18 21:30 10/03/18 02:00 10/02/18 21:30 10/02/18 21:30 10/02/18 21:30 Intake & Output 10/02/18 10/03/18 10/04/18 06:59 06:59 06:59 Intake Total 240 2100 Output Total 300 1075 Balance -60 1025 Weight 82.4 kg 83.4 kg General appearance: PRESENT: well-developed, well-nourished Head exam: PRESENT: normocephalic Respiratory exam: PRESENT: unlabored Neurological exam: PRESENT: alert, awake, other - confused Psychiatric exam: PRESENT: agitated Focused psych exam: PRESENT: delusional Skin exam: PRESENT: normal color Results Laboratory Results: 10/03/18 06:01 10/03/18 06:01 10/03/18 10/03/18 06:01 06:01 WBC 8.0 RBC 3.48 L Hgb 10.6 L D Hct 30.5 L MCV 88 MCH 30.4 MCHC 34.7 RDW 12.5 Plt Count 169 Sodium 135.8 L Potassium 4.2 Chloride 104 Carbon Dioxide 24 Anion Gap 8 BUN 14 Creatinine 0.87 Est GFR ( Amer) > 60 Est GFR (Non-Af Amer) > 60 Glucose 111 H Calcium 8.7 10/01/18 10/01/18 10/01/18 13:01 13:01 18:20 Creatine Kinase 77 90 CK-MB (CK-2) 0.72 Troponin I < 0.012 NT-Pro-B Natriuret Pep 10/01/18 10/02/18 10/02/18 18:20 00:41 00:41 Creatine Kinase 100 CK-MB (CK-2) 0.72 0.90 Troponin I < 0.012 < 0.012 NT-Pro-B Natriuret Pep 10/02/18 04:09 Creatine Kinase CK-MB (CK-2) Troponin I NT-Pro-B Natriuret Pep 171 Impressions: Cervical Spine CT 10/01/18 11:46 IMPRESSION: CHRONIC DEGENERATIVE CHANGES. NO ACUTE FINDINGS. Head CT 10/01/18 11:46 IMPRESSION: CHRONIC CHANGES OF ATROPHY AND MICROVASCULAR ISCHEMIA. NO ACUTE PROCESS. EVIDENCE OF ACUTE STROKE: NO. Chest X-Ray 10/01/18 12:40 IMPRESSION: NO ACUTE RADIOGRAPHIC FINDING IN THE CHEST. Hip X-Ray 10/02/18 18:30 IMPRESSION: Postoperative changes of left hip hemiarthroplasty. Assessment & Plan - Diagnosis (1) Breast cancer Qualifiers: Breast location: upper outer quadrant of breast Estrogen receptor status: positive Patient sex: female Laterality: right Qualified Code(s): C50.411 - Malignant neoplasm of upper-outer quadrant of right female breast; Z17.0 - Estrogen receptor positive status [ER+] Is this a current diagnosis for this admission?: No Plan: Currently with no evidence of disease. (2) Fracture of left hip Qualifiers: Encounter type: initial encounter Fracture type: closed Qualified Code(s) : S72.002A - Fracture of unspecified part of neck of left femur, initial encounter for closed fracture Is this a current diagnosis for this admission?: Yes Plan: Pain appears well controlled. Continue managing confusion. - Plan Summary Plan Summary: I will check path, but will only be available as needed. Please call with any concerns.
[2018-10-03] MEDS: LEVETIRACETAM 500 MG TABLET PO SCH (08:49)
[2018-10-03] MEDS ORDERED: CEFAZOLIN 2 GM/D5W RTU 2 GM/50 ML RTUPB IV SCH ×2 (09:00)
[2018-10-03] MEDS ORDERED: CEFAZOLIN SODIUM 2 GM in DEXTROSE 5%-WATER 100 ML IV SCH ×3 (09:00)
[2018-10-03] MEDS: LAMICTAL 150 MG PO SCH (09:28)
[2018-10-03] MEDS: MORPHINE SULFATE 10 MG/ML INJ IV PRN (09:38)
[2018-10-03] MEDS: CEFAZOLIN SODIUM 2 GM in DEXTROSE 5%-WATER 100 ML IV SCH ×3 (09:39→20:55)
[2018-10-03] MEDS: PRENATAL VITAMIN W DHA CAPSULE PO SCH (09:39)
[2018-10-03] MEDS: SENNOSIDES/DOCUSATE 8.6-50 MG 1 EACH TABLET PO SCH ×2 (09:39→17:40)
[2018-10-03] MEDS: VITAMIN E (DL, ACETATE) 400 UNIT CAPSULE PO SCH (09:42)
[2018-10-03] MEDS: LETROZOLE 2.5 MG TABLET PO SCH (09:42)
[2018-10-03] MEDS: OMEGA-3 ACID ETHYL ESTERS 1 GM CAPSULE PO SCH ×2 (09:53→20:59)
--- NOTE | 2018-10-03 16:19 | PDOC PROGRESS REPORT ---
Subjective Progress Note for:: 10/03/18 Subjective:: This is a 78-year-old female past medical history of breast cancer in remission and history of seizure disorder who was admitted after sustaining a left hip fracture from a fall. Patient underwent left hemiarthroplasty by orthopedics yesterday afternoon. She was also started on Xarelto for DVT prophylaxis postop. Per RN, patient had an episode of confusion overnight and pulled her Etienne out. She also reportedly dropped her saturation to the high 80s and was placed on nasal cannula. Upon encounter, patient appears comfortable and denies any complaints. Denies any chest pain or shortness of breath. Will try to wean off O2 today and see if she really requires O2 support. Will obtain a chest x-ray. Reason For Visit: HIP FRACTURE Physical Exam Vital Signs: Temp Pulse Resp BP Pulse Ox 98.9 F 80 16 112/42 L 77 L 10/03/18 07:54 10/03/18 07:54 10/03/18 07:54 10/03/18 07:54 10/03/18 07:54 Intake & Output 10/02/18 10/03/18 10/04/18 06:59 06:59 06:59 Intake Total 240 2100 Output Total 300 1075 Balance -60 1025 Weight 181 lb 10.574 oz 183 lb 13.848 oz General appearance: PRESENT: no acute distress, well-developed, well-nourished Head exam: PRESENT: atraumatic, normocephalic Eye exam: PRESENT: conjunctiva pink, EOMI, PERRLA. ABSENT: scleral icterus Ear exam: PRESENT: normal external ear exam Mouth exam: PRESENT: moist, tongue midline Neck exam: ABSENT: carotid bruit, JVD, lymphadenopathy, thyromegaly Respiratory exam: PRESENT: clear to auscultation oc. ABSENT: rales, rhonchi, wheezes Cardiovascular exam: PRESENT: RRR. ABSENT: diastolic murmur, rubs, systolic murmur Pulses: PRESENT: normal dorsalis pedis pul GI/Abdominal exam: PRESENT: normal bowel sounds, soft. ABSENT: distended, guarding, mass, organolmegaly, rebound, tenderness Rectal exam: PRESENT: deferred Neurological exam: PRESENT: alert, awake, oriented to person, oriented to place, CN II-XII grossly intact. ABSENT: motor sensory deficit Results Laboratory Results: 10/03/18 06:01 10/03/18 06:01 10/03/18 10/03/18 06:01 06:01 WBC 8.0 RBC 3.48 L Hgb 10.6 L D Hct 30.5 L MCV 88 MCH 30.4 MCHC 34.7 RDW 12.5 Plt Count 169 Sodium 135.8 L Potassium 4.2 Chloride 104 Carbon Dioxide 24 Anion Gap 8 BUN 14 Creatinine 0.87 Est GFR ( Amer) > 60 Est GFR (Non-Af Amer) > 60 Glucose 111 H Calcium 8.7 10/01/18 17:55 Catheterized Urine Urine Culture - Final Escherichia Coli 10/01/18 10/01/18 10/01/18 13:01 13:01 18:20 Creatine Kinase 77 90 CK-MB (CK-2) 0.72 Troponin I < 0.012 NT-Pro-B Natriuret Pep 10/01/18 10/02/18 10/02/18 18:20 00:41 00:41 Creatine Kinase 100 CK-MB (CK-2) 0.72 0.90 Troponin I < 0.012 < 0.012 NT-Pro-B Natriuret Pep 10/02/18 04:09 Creatine Kinase CK-MB (CK-2) Troponin I NT-Pro-B Natriuret Pep 171 Impressions: Cervical Spine CT 10/01/18 11:46 IMPRESSION: CHRONIC DEGENERATIVE CHANGES. NO ACUTE FINDINGS. Head CT 10/01/18 11:46 IMPRESSION: CHRONIC CHANGES OF ATROPHY AND MICROVASCULAR ISCHEMIA. NO ACUTE PROCESS. EVIDENCE OF ACUTE STROKE: NO. Chest X-Ray 10/01/18 12:40 IMPRESSION: NO ACUTE RADIOGRAPHIC FINDING IN THE CHEST. Hip X-Ray 10/02/18 18:30 IMPRESSION: Postoperative changes of left hip hemiarthroplasty. Assessment and Plan - Diagnosis (1) Left displaced femoral neck fracture Is this a current diagnosis for this admission?: Yes Plan: S/P left hemiarthroplasty on 10/02/2018. On Xarelto for DVT prophylaxis. (2) Breast cancer Qualifiers: Breast location: upper outer quadrant of breast Estrogen receptor status: positive Patient sex: female Laterality: right Qualified Code(s): C50.411 - Malignant neoplasm of upper-outer quadrant of right female breast; Z17.0 - Estrogen receptor positive status [ER+] Is this a current diagnosis for this admission?: Yes Plan: In remission. Appreciate oncology input. (3) Seizure disorder Is this a current diagnosis for this admission?: No Plan: Continue Lamictal and Keppra. (4) UTI (urinary tract infection) Is this a current diagnosis for this admission?: Yes Plan: On cefazolin. (5) Acute delirium Is this a current diagnosis for this admission?: Yes - Time Time Spent with patient: 25-34 minutes
--- NOTE | 2018-10-03 16:39 | RADIOLOGY REPORT (SQ) ---
EXAM DESCRIPTION: CHEST SINGLE VIEW COMPLETED DATE/TIME: 10/03/2018 4:27 pm REASON FOR STUDY: low sats COMPARISON: 10/01/2018 EXAM PARAMETERS: NUMBER OF VIEWS: One view. TECHNIQUE: Single frontal radiographic view of the chest acquired. RADIATION DOSE: NA LIMITATIONS: None. FINDINGS: LUNGS AND PLEURA: Prominent interstitial opacities with Natalio B-lines. No alveolar edema . No large effusion. No pneumothorax. No focal consolidation. MEDIASTINUM AND HILAR STRUCTURES: Stable. HEART AND VASCULAR STRUCTURES: Enlarged cardiac silhouette, stable. Ectatic atherosclerotic thoracic aorta. BONES: Decreased mineralization. No acute findings. HARDWARE: Surgical clips overlie right axilla. OTHER: No other significant finding. IMPRESSION: Enlarged cardiac silhouette with likely interstitial edema. No alveolar edema or signif icant effusion. TECHNICAL DOCUMENTATION: JOB ID: [id number] [employer]- All Rights Reserved Reading location - IP/workstation name: [email or web address]
[2018-10-03] MEDS: RIVAROXABAN 10 MG TABLET PO SCH (17:41)
[2018-10-03] MEDS ORDERED: FUROSEMIDE INJ/PF 40 MG/4 ML SDV IV SCH ×2 (18:45→19:00)
--- NOTE | 2018-10-03 19:30 | PDOC PROGRESS REPORT ---
Subjective Subjective:: Patient lying in bed currently. According to nursing staff she did have some confusion throughout the day and does pull the IV out. She has not been complaining of pain but has required increased oxygen intake. Most recent pain medication was morphine. Reason For Visit: HIP FRACTURE Physical Exam Vital Signs: Temp Pulse Resp BP Pulse Ox 98.9 F 80 16 112/42 L 77 L 10/03/18 07:54 10/03/18 07:54 10/03/18 07:54 10/03/18 07:54 10/03/18 07:54 Intake & Output 10/02/18 10/03/18 10/04/18 06:59 06:59 06:59 Intake Total 240 2100 336 Output Total 300 1075 450 Balance -60 1025 -114 Weight 82.4 kg 83.4 kg Musculoskeletal exam: PRESENT: other - Left hip: Dressing clean/dry/intact no erythema or drainage. Moderate thigh swelling without change, intact plantarfle xion/dorsiflexion. No sensory deficits. No calf tenderness. Results Laboratory Results: 10/03/18 06:01 10/03/18 06:01 10/03/18 10/03/18 06:01 06:01 WBC 8.0 RBC 3.48 L Hgb 10.6 L D Hct 30.5 L MCV 88 MCH 30.4 MCHC 34.7 RDW 12.5 Plt Count 169 Sodium 135.8 L Potassium 4.2 Chloride 104 Carbon Dioxide 24 Anion Gap 8 BUN 14 Creatinine 0.87 Est GFR ( Amer) > 60 Est GFR (Non-Af Amer) > 60 Glucose 111 H Calcium 8.7 10/01/18 17:55 Catheterized Urine Urine Culture - Final Escherichia Coli 10/01/18 10/01/18 10/01/18 13:01 13:01 18:20 Creatine Kinase 77 90 CK-MB (CK-2) 0.72 Troponin I < 0.012 NT-Pro-B Natriuret Pep 10/01/18 10/02/18 10/02/18 18:20 00:41 00:41 Creatine Kinase 100 CK-MB (CK-2) 0.72 0.90 Troponin I < 0.012 < 0.012 NT-Pro-B Natriuret Pep 10/02/18 04:09 Creatine Kinase CK-MB (CK-2) Troponin I NT-Pro-B Natriuret Pep 171 Impressions: Cervical Spine CT 10/01/18 11:46 IMPRESSION: CHRONIC DEGENERATIVE CHANGES. NO ACUTE FINDINGS. Head CT 10/01/18 11:46 IMPRESSION: CHRONIC CHANGES OF ATROPHY AND MICROVASCULAR ISCHEMIA. NO ACUTE PROCESS. EVIDENCE OF ACUTE STROKE: NO. Hip X-Ray 10/02/18 18:30 IMPRESSION: Postoperative changes of left hip hemiarthroplasty. Chest X-Ray 10/03/18 16:14 IMPRESSION: Enlarged cardiac silhouette with likely interstitial edema. No alveolar edema or significant effusion. Assessment & Plan - Diagnosis (1) Left displaced femoral neck fracture Is this a current diagnosis for this admission?: Yes Plan: status post left hip hemiarthroplasty 1. Pain control 2. Xarelto for DVT prophylaxis 3. Physical therapy with hip precautions 4. Altered mental status possibly secondary to anesthesia we will continue to monitor. 5. Discharge planning patient will require nursing facility when bed available and when cleared by hospitalist service
[2018-10-03] MEDS: FUROSEMIDE INJ/PF 40 MG/4 ML SDV IV SCH (20:55)
[2018-10-03] MEDS: ESCITALOPRAM OXALATE 10 MG TABLET PO SCH (20:58)
[2018-10-03] MEDS: SIMVASTATIN 40 MG TABLET PO SCH (20:59)
[2018-10-03] MEDS: PANTOPRAZOLE SODIUM 40 MG TABLET.DR PO SCH (20:59)
[2018-10-03] MEDS: LAMICTAL 200 MG PO SCH (21:00)
[2018-10-03 22:08] LABS: ARTERIAL BLOOD BASE EXCESS 1.3 mmol/L; ARTERIAL BLOOD FIO2 4L; ARTERIAL BLOOD O2 SATURATION 95.6 % (94-98); ARTERIAL BLOOD PCO2 36.4 mmHg (35-45); ARTERIAL BLOOD PH 7.46 (7.35-7.45); ARTERIAL BLOOD TOTAL CO2 26.1 mmol/L (21-25)
[2018-10-03] MEDS: ACETAMINOPHEN 325 MG TABLET PO PRN (23:06)
[2018-10-04] MEDS: CEFAZOLIN SODIUM 2 GM in DEXTROSE 5%-WATER 100 ML IV SCH ×4 (04:09→21:08)
--- NOTE | 2018-10-04 07:08 | PDOC PROGRESS REPORT ---
Subjective Progress Note for:: 10/04/18 Subjective:: Patient lying in bed currently. According to nursing staff she did have some confusion throughout the yesterday and does pull the IV out. She has not been complaining of pain but has required increased oxygen intake. Most recent pain medication was morphine. Reason For Visit: HIP FRACTURE Physical Exam Vital Signs: Temp Pulse Resp BP Pulse Ox 98.8 F 106 H 20 155/47 H 94 10/03/18 23:52 10/04/18 02:00 10/03/18 23:52 10/03/18 23:52 10/03/18 23:52 Intake & Output 10/02/18 10/03/18 10/04/18 06:59 06:59 06:59 Intake Total 240 2100 996 Output Total 300 1075 2950 Balance -60 1025 -3030 Weight 82.4 kg 83.4 kg 84.2 kg Musculoskeletal exam: PRESENT: other - Left hip: Dressing clean/dry/intact no erythema or drainage. Moderate thigh swelling without change, intact plantarflexion/dorsiflexion. No sensory deficits. No calf tenderness. Results Laboratory Results: 10/03/18 06:01 10/03/18 06:01 10/03/18 10/03/18 06:01 21:17 Carbonic Acid 1.10 HCO3/H2CO3 Ratio 22:1 ABG pH 7.46 H ABG pCO2 36.4 ABG pO2 74.0 L ABG HCO3 25.0 H ABG O2 Saturation 95.6 ABG Base Excess 1.3 FiO2 4L Sodium 135.8 L Potassium 4.2 Chloride 104 Carbon Dioxide 24 Anion Gap 8 BUN 14 Creatinine 0.87 Est GFR ( Amer) > 60 Est GFR (Non-Af Amer) > 60 Glucose 111 H Calcium 8.7 10/01/18 17:55 Catheterized Urine Urine Culture - Final Escherichia Coli 10/01/18 10/01/18 10/01/18 13:01 13:01 18:20 Creatine Kinase 77 90 CK-MB (CK-2) 0.72 Troponin I < 0.012 NT-Pro-B Natriuret Pep 10/01/18 10/02/18 10/02/18 18:20 00:41 00:41 Creatine Kinase 100 CK-MB (CK-2) 0.72 0.90 Troponin I < 0.012 < 0.012 NT-Pro-B Natriuret Pep 10/02/18 04:09 Creatine Kinase CK-MB (CK-2) Troponin I NT-Pro-B Natriuret Pep 171 Impressions: Cervical Spine CT 10/01/18 11:46 IMPRESSION: CHRONIC DEGENERATIVE CHANGES. NO ACUTE FINDINGS. Head CT 10/01/18 11:46 IMPRESSION: CHRONIC CHANGES OF ATROPHY AND MICROVASCULAR ISCHEMIA. NO ACUTE PROCESS. EVIDENCE OF ACUTE STROKE: NO. Hip X-Ray 10/02/18 18:30 IMPRESSION: Postoperative changes of left hip hemiarthroplasty. Chest X-Ray 10/03/18 16:14 IMPRESSION: Enlarged cardiac silhouette with likely interstitial edema. No al veolar edema or significant effusion. Assessment & Plan - Diagnosis (1) Left displaced femoral neck fracture Is this a current diagnosis for this admission?: Yes Plan: status post left hip hemiarthroplasty 1. Pain control 2. Xarelto for DVT prophylaxis 3. Physical therapy with hip precautions 4. Altered mental status possibly secondary to anesthesia vs hypoxemia we defer to hospitalist group 5. Discharge planning patient will require nursing facility when bed available and when cleared by hospitalist service
[2018-10-04 07:25] LABS: HEMATOCRIT 30.3 % (36.0-47.0); HEMOGLOBIN 10.6 g/dL (12.0-15.5); MEAN CORPUSCULAR HEMOGLOBIN 30.5 pg (27.0-33.4); MEAN CORPUSCULAR HGB CONC 35.1 g/dL (32.0-36.0); MEAN CORPUSCULAR VOLUME 87 fl (80-97); PLATELET COUNT 179 10^3/uL (150-450); RED BLOOD COUNT 3.48 10^6/uL (3.72-5.28); RED CELL DISTRIBUTION WIDTH 12.5 % (11.5-14.0)
[2018-10-04] MEDS: LEVETIRACETAM 500 MG TABLET PO SCH (09:17)
[2018-10-04] MEDS: LAMICTAL 150 MG PO SCH (09:18)
[2018-10-04] MEDS ORDERED: FUROSEMIDE INJ/PF 40 MG/4 ML SDV ONE (09:21)
[2018-10-04] MEDS: LETROZOLE 2.5 MG TABLET PO SCH (09:25)
[2018-10-04] MEDS: FUROSEMIDE INJ/PF 40 MG/4 ML SDV IV SCH (09:25)
[2018-10-04] MEDS: PRENATAL VITAMIN W DHA CAPSULE PO SCH (09:26)
[2018-10-04] MEDS: OMEGA-3 ACID ETHYL ESTERS 1 GM CAPSULE PO SCH ×2 (09:26→21:11)
[2018-10-04] MEDS: VITAMIN E (DL, ACETATE) 400 UNIT CAPSULE PO SCH (09:26)
[2018-10-04] MEDS: SENNOSIDES/DOCUSATE 8.6-50 MG 1 EACH TABLET PO SCH ×2 (09:26→17:19)
[2018-10-04] MEDS: ONDANSETRON HCL INJ/PF 4 MG/2 ML SDV IV PRN (10:48)
[2018-10-04] MEDS ORDERED: HALOPERIDOL LACTATE INJ 5 MG/1 ML VIAL IV ONE (11:00)
--- NOTE | 2018-10-04 13:33 | RADIOLOGY REPORT (SQ) ---
EXAM DESCRIPTION: CHEST SINGLE VIEW COMPLETED DATE/TIME: 10/04/2018 9:27 am REASON FOR STUDY: reassess congestion COMPARISON: 10/03/2018 NUMBER OF VIEWS: One view. TECHNIQUE: Single frontal radiographic view of the chest acquired. LIMITATIONS: None. FINDINGS: LUNGS AND PLEURA: No opacities, masses or pneumothorax. No pleural effusion. MEDIASTINUM AND HILAR STRUCTURES: No masses. Contour normal. HEART AND VASCULAR STRUCTURES: Heart enlarged without failure. Normal vasculature. BONES: No acute findings. HARDWARE: Right axillary clips. OTHER: No other significant finding. IMPRESSION: Cardiomegaly. No acute findings. TECHNICAL DOCUMENTATION: JOB ID: [id number] [employer] All Rights Reserved Reading location - IP/workstation name: [email or web address]
[2018-10-04] MEDS ORDERED: DEXTROSE 40% GEL 15 GM TUBE PO PRN (13:43)
[2018-10-04] MEDS ORDERED: GLUCAGON,HUMAN RECOMB 1 MG INJ SUBCUT PRN (13:43)
[2018-10-04] MEDS ORDERED: DEXTROSE 50%-WATER 25 GM/50 ML DISP.SYRIN IV PRN ×2 (13:43)
[2018-10-04] MEDS ORDERED: HALOPERIDOL LACTATE INJ 5 MG/1 ML VIAL ONE (16:55)
--- NOTE | 2018-10-04 16:58 | PDOC PROGRESS REPORT ---
Subjective Progress Note for:: 10/04/18 Subjective:: This is a 78-year-old female past medical history of breast cancer in remission and history of seizure disorder who was admitted after sustaining a left hip fracture from a fall. 10/03: Patient underwent left hemiarthroplasty by orthopedics yesterday afternoon. She was also started on Xarelto for DVT prophylaxis postop. Per RN, patient had an episode of confusion overnight and pulled her Etienne out. She also reportedly dropped her saturation to the high 80s and was placed on nasal cannula. Upon encounter, patient appears comfortable and denies any complaints. Denies any chest pain or shortness of breath. Will try to wean off O2 today and see if she really requires O2 support. Will obtain a chest x-ray. 10/04: Patient had an episode of infusion agitation overnight and had to be placed in restraints. This morning, she was given a dose of Haldol. Upon e ncounter, she was easily arousable and oriented to person. Chest x-ray yesterday afternoon did show interstitial edema. IV fluids were discontinued and she was given 2 doses of IV Lasix. Repeat chest x-ray this morning showed resolution of interstitial edema and congestion. Reason For Visit: HIP FRACTURE Physical Exam Vital Signs: Temp Pulse Resp BP Pulse Ox 98.8 F 83 20 155/47 H 94 10/03/18 23:52 10/04/18 13:57 10/03/18 23:52 10/03/18 23:52 10/03/18 23:52 Intake & Output 10/03/18 10/04/18 10/05/18 06:59 06:59 06:59 Intake Total 2100 996 200 Output Total 1075 2950 725 Balance 1025 -1954 -525 Weight 183 lb 13.848 oz 185 lb 10.067 oz General appearance: PRESENT: no acute distress, well-developed, well-nourished Head exam: PRESENT: atraumatic, normocephalic Eye exam: PRESENT: conjunctiva pink, EOMI, PERRLA. ABSENT: scleral icterus Ear exam: PRESENT: normal external ear exam Mouth exam: PRESENT: moist, tongue midline Neck exam: ABSENT: carotid bruit, JVD, lymphadenopathy, thyromegaly Respiratory exam: PRESENT: clear to auscultation oc. ABSENT: rales, rhonchi, wheezes Cardiovascular exam: PRESENT: RRR. ABSENT: diastolic murmur, rubs, systolic murmur Pulses: PRESENT: normal dorsalis pedis pul GI/Abdominal exam: PRESENT: normal bowel sounds, soft. ABSENT: distended, guarding, mass, organolmegaly, rebound, tenderness Rectal exam: PRESENT: deferred Neurological exam: PRESENT: alert, oriented to person, CN II-XII grossly intact. ABSENT: motor sensory deficit Results Laboratory Results: 10/04/18 07:09 10/03/18 06:01 10/03/18 10/04/18 21:17 07:09 WBC 9.0 RBC 3.48 L Hgb 10.6 L Hct 30.3 L MCV 87 MCH 30.5 MCHC 35.1 RDW 12.5 Plt Count 179 Carbonic Acid 1.10 HCO3/H2CO3 Ratio 22:1 ABG pH 7.46 H ABG pCO2 36.4 ABG pO2 74.0 L ABG HCO3 25.0 H ABG O2 Saturation 95.6 ABG Base Excess 1.3 FiO2 4L 10/01/18 10/01/18 10/01/18 13:01 13:01 18:20 Creatine Kinase 77 90 CK-MB (CK-2) 0.72 Troponin I < 0.012 NT-Pro-B Natriuret Pep 10/01/18 10/02/18 10/02/18 18:20 00:41 00:41 Creatine Kinase 100 CK-MB (CK-2) 0.72 0.90 Troponin I < 0.012 < 0.012 NT-Pro-B Natriuret Pep 10/02/18 04:09 Creatine Kinase CK-MB (CK-2) Troponin I NT-Pro-B Natriuret Pep 171 Impressions: Cervical Spine CT 10/01/18 11:46 IMPRESSION: CHRONIC DEGENERATIVE CHANGES. NO ACUTE FINDINGS. Head CT 10/01/18 11:46 IMPRESSION: CHRONIC CHANGES OF ATROPHY AND MICROVASCULAR ISCHEMIA. NO ACUTE PROCESS. EVIDENCE OF ACUTE STROKE: NO. Hip X-Ray 10/02/18 18:30 IMPRESSION: Postoperative changes of left hip hemiarthroplasty. Chest X-Ray 10/04/18 07:00 IMPRESSION: Cardiomegaly. No acute findings. Assessment and Plan - Diagnosis (1) Acute delirium Is this a current diagnosis for this admission?: Yes Plan: Multifactorial from UTI, pulmonary congestion and acute hospitalization. Family does say that patient has been suspected to have mild dementia. (2) Left displaced femoral neck fracture Is this a current diagnosis for this admission?: Yes Plan: S/P left hemiarthroplasty on 10/02/2018. On Xarelto for DVT prophylaxis. (3) Breast cancer Qualifiers: Breast location: upper outer quadrant of breast Estrogen receptor status: positive Patient sex: female Laterality: right Qualified Code(s): C50.411 - Malignant neoplasm of upper-outer quadrant of right female breast; Z17.0 - Estrogen receptor positive status [ER+] Is this a current diagnosis for this admission?: Yes Plan: In remission. Appreciate oncology input. (4) Seizure disorder Is this a current diagnosis for this admission?: Yes Plan: Continue Lamictal and Keppra. (5) UTI (urinary tract infection) Is this a current diagnosis for this admission?: Yes Plan: On cefazolin. (6) Pulmonary congestion Is this a current diagnosis for this admission?: Yes Plan: Chest x-ray yesterday showed interstitial edema. IV fluids were discontinued and she was given 2 doses of IV Lasix. Repeat chest x-ray this morning shows resolution of interstitial edema. - Time Time Spent with patient: 25-34 minutes
[2018-10-04] MEDS: HALOPERIDOL LACTATE INJ 5 MG/1 ML VIAL IV PRN ×2 (17:18→23:48)
[2018-10-04] MEDS: RIVAROXABAN 10 MG TABLET PO SCH (17:19)
[2018-10-04] MEDS: ACETAMINOPHEN 325 MG TABLET PO PRN (17:19)
--- NOTE | 2018-10-04 19:09 | RADIOLOGY REPORT (SQ) ---
EXAM DESCRIPTION: CT HEAD WITHOUT COMPLETED DATE/TIME: 10/04/2018 6:02 pm REASON FOR STUDY: AMS COMPARISON: CT brain 10/01/2018 TECHNIQUE: Axial images acquired through the brain without intravenous contrast. Images reviewed wi th bone, brain and subdural windows. Additional sagittal and coronal reconstructions were generated. Images stored on PACS. All CT scanners at this facility use dose modulation, iterative reconstruction, and/or weight based d osing when appropriate to reduce radiation dose to as low as reasonably achievable (ALARA). [facility]: Dose Right [facility]: CareDose [facility]: Dose Right [facility]: Teradose 4D [facility]: [employer] RADIATION DOSE: CT Rad equipment meets quality standard of care and radiation dose reduction techniq ues were employed. CTDIvol: 53.2 mGy. DLP: 991 mGy-cm. mGy. LIMITATIONS: None. FINDINGS: VENTRICLES: Normal size and contour. CEREBRUM: There is now a low attenuation in the right occipital cortex and subcortical white matter f rom an early subacute 1 week to 1-month-old infarct. This report was called to the patient's nurse o [address], at the time of dictation. Remainder of the brain parenchyma demonstrates chronic small vessel ischemic change in the bifrontal and biparietal regions, stable. CEREBELLUM: No masses. No hemorrhage. No alteration of density. No evidence for acute infarction. EXTRAAXIAL SPACES: No fluid collections. No masses. ORBITS AND GLOBE: No intra- or extraconal masses. Normal contour of globe without masses. CALVARIUM: No fracture. PARANASAL SINUSES: No fluid or mucosal thickening. SOFT TISSUES: No mass or hematoma. OTHER: No other significant finding. 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
[2018-10-04] MEDS: ATORVASTATIN CALCIUM 40 MG TABLET PO SCH (21:07)
[2018-10-04] MEDS: ESCITALOPRAM OXALATE 10 MG TABLET PO SCH (21:07)
[2018-10-04] MEDS: LAMICTAL 200 MG PO SCH (21:08)
[2018-10-05] MEDS: CEFAZOLIN SODIUM 2 GM in DEXTROSE 5%-WATER 100 ML IV SCH ×4 (03:33→23:52)
[2018-10-05] MEDS: PANTOPRAZOLE SODIUM 40 MG TABLET.DR PO SCH (05:04)
[2018-10-05 08:01] LABS: HEMATOCRIT 28.1 % (36.0-47.0); HEMOGLOBIN 10.1 g/dL (12.0-15.5); MEAN CORPUSCULAR HEMOGLOBIN 30.8 pg (27.0-33.4); MEAN CORPUSCULAR VOLUME 86 fl (80-97); PLATELET COUNT 199 10^3/uL (150-450); RED BLOOD COUNT 3.28 10^6/uL (3.72-5.28); RED CELL DISTRIBUTION WIDTH 12.7 % (11.5-14.0); WHITE BLOOD COUNT 7.9 10^3/uL (4.0-10.5)
[2018-10-05] MEDS: PRENATAL VITAMIN W DHA CAPSULE PO SCH (09:27)
[2018-10-05] MEDS: LEVETIRACETAM 500 MG TABLET PO SCH ×2 (09:33→21:00)
[2018-10-05] MEDS: LETROZOLE 2.5 MG TABLET PO SCH (09:34)
[2018-10-05] MEDS: VITAMIN E (DL, ACETATE) 400 UNIT CAPSULE PO SCH (09:34)
[2018-10-05] MEDS: LAMICTAL 150 MG PO SCH (09:36)
[2018-10-05] MEDS: SENNOSIDES/DOCUSATE 8.6-50 MG 1 EACH TABLET PO SCH ×2 (09:37→17:40)
[2018-10-05] MEDS: OMEGA-3 ACID ETHYL ESTERS 1 GM CAPSULE PO SCH ×2 (09:40→21:56)
[2018-10-05] MEDS: ACETAMINOPHEN 325 MG TABLET PO PRN (09:53)
--- NOTE | 2018-10-05 11:36 | RADIOLOGY REPORT (SQ) ---
EXAM DESCRIPTION: CAROTID DOPPLER COMPLETED DATE/TIME: 10/04/2018 9:53 pm REASON FOR STUDY: CVA COMPARISON: CT brain 10/04/2018, 10/01/2018 TECHNIQUE: Grayscale ultrasound, Doppler velocity and spectra, and color Doppler images acquired of the extra-cranial carotid and vertebral arteries. Images stored on PACS. LIMITATIONS: None. FINDINGS: RIGHT CAROTID CCA Velocities: Within normal limits. Right common carotid artery peak systolic velocity 1.4 m/sec ICA Velocities Peak systolic 0.70 m/s. End diastolic 0.11 m/s. Proximal ICA/CCA peak systolic ratio 0.6. Spectra normal. No significant plaque. LEFT CAROTID CCA Velocities: Within normal limits. Left common carotid artery peak systolic velocity 0.98 m/sec ICA Velocities Peak systolic 0.80 m/s. End diastolic 0.14 m/s. Proximal ICA/CCA peak systolic ratio normal. Spectra normal. No significant plaque. VERTEBRAL ARTERIES: Antegrade flow. Normal waveforms bilaterally. However, patient did have a poste rior circulation infarct. CTA is recommended to exclude right vertebral artery dissection. This was discussed with Iva. SUBCLAVIAN ARTERIES: Not evaluated OTHER: No other significant finding. IMPRESSION: NO HEMODYNAMICALLY SIGNIFICANT STENOSIS AT THE CAROTID BIFURCATIONS. ANTEGRADE PULSATILE VERTEBRAL ARTERY FLOW BILATERALLY. HOWEVER, PATIENT DOES HAVE A POSTERIOR CIRCUL ATION INFARCT. CTA OF CERVICAL VESSELS SHOULD BE CONSIDERED. THIS FINDING WAS DISCUSSED WITH DR DONITA Castillo COMMENT: Quality ID #[id number]: Velocity criteria are extrapolated from the diameter data as defined by t he Society of Radiologists in Ultrasound Consensus Conference. Radiology 2003: 229; 340-346. TECHNICAL DOCUMENTATION: JOB ID: [id number] [employer]- All Rights Reserved Reading location - IP/workstation name: [email or web address]-
[2018-10-05] MEDS: KETOROLAC TROMETHAMINE INJ/PF 30 MG/1 ML SDV IV PRN (11:38)
--- NOTE | 2018-10-05 12:15 | PDOC PROGRESS REPORT ---
Subjective Progress Note for:: 10/05/18 Subjective:: This is a 78-year-old female past medical history of breast cancer in remission and history of seizure disorder who was admitted after sustaining a left hip fracture from a fall. 10/03: Patient underwent left hemiarthroplasty by orthopedics yesterday afternoon. She was also started on Xarelto for DVT prophylaxis postop. Per RN, patient had an episode of confusion overnight and pulled her Etienne out. She also reportedly dropped her saturation to the high 80s and was placed on nasal cannula. Upon encounter, patient appears comfortable and denies any complaints. Denies any chest pain or shortness of breath. Will try to wean off O2 today and see if she really requires O2 support. Will obtain a chest x-ray. 10/04: Patient had an episode of infusion agitation overnight and had to be placed in restraints. This morning, she was given a dose of Haldol. Upon e ncounter, she was easily arousable and oriented to person. Chest x-ray yesterday afternoon did show interstitial edema. IV fluids were discontinued and she was given 2 doses of IV Lasix. Repeat chest x-ray this morning showed resolution of interstitial edema and congestion. 10/05: Patient's head CT last night did show a subacute left-sided infarct probably a week 2 months old. She did send down last night. This morning, she appears comfortable and is oriented to person. Today states she is at home. She denies other acute complaints. Denies chest pain, shortness of breath, headache, dizziness or leg pain. Her waxing and waning confusion is likely from acute delirium, multifactorial from UTI, recent surgery, pulmonary congestion and CVA in an elderly patient with possible dementia. Carotid Doppler reveals antegrade flow in the vertebral artery. Discussed with radiology. Will pursue a CT of the neck/head to rule out a dissection. Reason For Visit: HIP FRACTURE Physical Exam Vital Signs: Temp Pulse Resp BP Pulse Ox 99.7 F 71 20 123/45 L 95 10/05/18 08:19 10/05/18 08:19 10/05/18 08:19 10/05/18 08:19 10/05/18 08:19 Intake & Output 10/04/18 10/05/18 10/06/18 06:59 06:59 06:59 Intake Total 996 500 Output Total 2950 1850 Balance -1954 -1350 Weight 185 lb 10.067 oz 180 lb 5.41 oz General appearance: PRESENT: no acute distress, well-developed, well-nourished Head exam: PRESENT: atraumatic, normocephalic Eye exam: PRESENT: conjunctiva pink, EOMI, PERRLA. ABSENT: scleral icterus Ear exam: PRESENT: normal external ear exam Mouth exam: PRESENT: moist, tongue midline Neck exam: ABSENT: carotid bruit, JVD, lymphadenopathy, thyromegaly Respiratory exam: PRESENT: clear to auscultation oc. ABSENT: rales, rhonchi, wheezes Cardiovascular exam: PRESENT: RRR. ABSENT: diastolic murmur, rubs, systolic murmur Pulses: PRESENT: normal dorsalis pedis pul GI/Abdominal exam: PRESENT: normal bowel sounds, soft. ABSENT: distended, guarding, mass, organolmegaly, rebound, tenderness Rectal exam: PRESENT: deferred Neurological exam: PRESENT: alert, awake, oriented to person, CN II-XII grossly intact. ABSENT: oriented to place, oriented to time, motor sensory deficit Results Laboratory Results: 10/05/18 07:06 10/03/18 06:01 10/05/18 07:06 WBC 7.9 RBC 3.28 L Hgb 10.1 L Hct 28.1 L MCV 86 MCH 30.8 MCHC 36.0 RDW 12.7 Plt Count 199 10/01/18 10/01/18 10/01/18 13:01 13:01 18:20 Creatine Kinase 77 90 CK-MB (CK-2) 0.72 Troponin I < 0.012 NT-Pro-B Natriuret Pep 10/01/18 10/02/18 10/02/18 18:20 00:41 00:41 Creatine Kinase 100 CK-MB (CK-2) 0.72 0.90 Troponin I < 0.012 < 0.012 NT-Pro-B Natriuret Pep 10/02/18 04:09 Creatine Kinase CK-MB (CK-2) Troponin I NT-Pro-B Natriuret Pep 171 Impressions: Cervical Spine CT 10/01/18 11:46 IMPRESSION: CHRONIC DEGENERATIVE CHANGES. NO ACUTE FINDINGS. Hip X-Ray 10/02/18 18:30 IMPRESSION: Postoperative changes of left hip hemiarthroplasty. Chest X-Ray 10/04/18 07:00 IMPRESSION: Cardiomegaly. No acute findings. 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 ANTEGRADE PULSATILE VERTEBRAL ARTERY FLOW BILATERALLY. HOWEVER, PATIENT DOES HAVE A POSTERIOR CIRCULATION INFARCT. CTA OF CERVICAL VESSELS SHOULD BE CONSIDERED. THIS FINDING WAS DISCUSSED WITH DR CAT Assessment and Plan - Diagnosis (1) Acute delirium Is this a current diagnosis for this admission?: Yes Plan: Multifactorial from UTI, pulmonary congestion and acute hospitalization. Family does say that patient has been suspected to have mild dementia. (2) Left displaced femoral neck fracture Is this a current diagnosis for this admission?: Yes Plan: S/P left hemiarthroplasty on 10/02/2018. On Xarelto for DVT prophylaxis. (3) Breast cancer Qualifiers: Breast location: upper outer quadrant of breast Estrogen receptor status: positive Patient sex: female Laterality: right Qualified Code(s): C50.411 - Malignant neoplasm of upper-outer quadrant of right female breast; Z17.0 - Estrogen receptor positive status [ER+] Is this a current diagnosis for this admission?: Yes Plan: In remission. Appreciate oncology input. (4) Seizure disorder Is this a current diagnosis for this admission?: Yes Plan: Continue Lamictal and Keppra. (5) UTI (urinary tract infection) Is this a current diagnosis for this admission?: Yes Plan: On cefazolin. (6) Pulmonary congestion Is this a current diagnosis for this admission?: Yes Plan: 10/04: Chest x-ray yesterday showed interstitial edema. IV fluids were discontinued and she was given 2 doses of IV Lasix. Repeat chest x-ray this morning shows resolution of interstitial edema. - Time Time Spent with patient: 25-34 minutes
[2018-10-05] MEDS ORDERED: QUETIAPINE FUMARATE 25 MG TABLET PO SCH (12:30)
[2018-10-05 12:39] LABS: FREE T3 3.32 pg/mL (2.77-5.27); FREE T4 (FREE THYROXINE) 1.47 ng/dL (0.78-2.19)
--- NOTE | 2018-10-05 13:54 | RADIOLOGY REPORT (SQ) ---
EXAM DESCRIPTION: CTA NECK; CTA HEAD COMPLETED DATE/TIME: 10/05/2018 1:33 pm REASON FOR STUDY: CVA,r/o dissection COMPARISON: None. TECHNIQUE: Axial dynamic scanning technique with dynamic contrast enhancement through the extra-uncrater nial carotid and vertebral arteries. Multiplanar reconstruction. 3-D MIPS and Volume-rendered imag es acquired at the workstation and saved to PACS. Images are reviewed in soft tissue, bone, lung w indows. Axial dynamic scanning technique with dynamic contrast enhancement through the INTRA-cranial carotid and vertebral arteries. Multiplanar reconstruction. 3-D MIPS and Volume-rendered images acquired at the workstation and saved to PACS. Images are reviewed in soft tissue, bone, brain parenchymal windows. All CT scanners at this facility use dose modulation, iterative reconstruction, and/or weight based d osing when appropriate to reduce radiation dose to as low as reasonably achievable (ALARA). [facility]: Dose Right [facility]: CareDose [facility]: Dose Right [facility]: Teradose 4D [facility]: PAX [employer] CONTRAST TYPE AND DOSE: contrast/concentration: Isovue 350.00 mg/ml; Total Contrast Delivered: 80.0 ml; Total Saline Delivered: 75.0 ml RENAL FUNCTION: GFR > 60. LIMITATIONS: None. FINDINGS: AORTIC ARCH: Normal three-vessel origin. Bilateral subclavian arteries are patent. No d issection. RIGHT CAROTIDS: Patent common, internal and external carotid arteries without suggestion of significa nt stenosis or irregular plaque. No dissection. RIGHT VERTEBRAL: Patent. No dissection. LEFT CAROTIDS: Patent common, internal and external carotid arteries without suggestion of significan t stenosis or irregular plaque. No dissection. LEFT VERTEBRAL: Patent. No dissection. [place]: No other significant finding. No kn[place] of [place] stenosis, vascular malformation, or aneurysm. No neck masses or adenopathy. Lung apices are clear. Airways are patent. Very mild degenerative ch anges in the cervical spine. Imaging of the brain parenchyma demonstrates an early subacute nonhemorrhagic infarct in the right po sterior cerebral artery distribution involving the right occipital cortex. OTHER: 3-D reconstructions confirm findings. IMPRESSION: NORMAL CTA OF THE EXTRA-CRANIAL CAROTID AND VERTEBRAL ARTERIES. NORMAL CTA OF THE [place] COMMENT: Quality ID #195: Measurements of distal internal carotid diameter were used as the denomina tor for stenosis measurement. TECHNICAL DOCUMENTATION: JOB ID: [id number] Quality ID # [id number]: Final reports with documentation of one or more dose reduction techniques (e.g., Au tomated exposure control, adjustment of the mA and/or kV according to patient size, use of iterative reconstruction technique) 2010 [employer]- All Rights Reserved Reading location - IP/workstation name: [email or web address]
--- NOTE | 2018-10-05 13:54 | RADIOLOGY REPORT (SQ) ---
EXAM DESCRIPTION: CTA NECK; CTA HEAD COMPLETED DATE/TIME: 10/05/2018 1:33 pm REASON FOR STUDY: CVA,r/o dissection COMPARISON: None. TECHNIQUE: Axial dynamic scanning technique with dynamic contrast enhancement through the extra-mill crane operator nial carotid and vertebral arteries. Multiplanar reconstruction. 3-D MIPS and Volume-rendered imag es acquired at the workstation and saved to PACS. Images are reviewed in soft tissue, bone, lung w indows. Axial dynamic scanning technique with dynamic contrast enhancement through the INTRA-cranial carotid and vertebral arteries. Multiplanar reconstruction. 3-D MIPS and Volume-rendered images acquired at the workstation and saved to PACS. Images are reviewed in soft tissue, bone, brain parenchymal windows. All CT scanners at this facility use dose modulation, iterative reconstruction, and/or weight based d osing when appropriate to reduce radiation dose to as low as reasonably achievable (ALARA). [facility]: Dose Right [facility]: CareDose [facility]: Dose Right [facility]: Teradose 4D [facility]: Beyond the Box CONTRAST TYPE AND DOSE: contrast/concentration: Isovue 350.00 mg/ml; Total Contrast Delivered: 80.0 ml; Total Saline Delivered: 75.0 ml RENAL FUNCTION: GFR > 60. LIMITATIONS: None. FINDINGS: AORTIC ARCH: Normal three-vessel origin. Bilateral subclavian arteries are patent. No d issection. RIGHT CAROTIDS: Patent common, internal and external carotid arteries without suggestion of significa nt stenosis or irregular plaque. No dissection. RIGHT VERTEBRAL: Patent. No dissection. LEFT CAROTIDS: Patent common, internal and external carotid arteries without suggestion of significan t stenosis or irregular plaque. No dissection. LEFT VERTEBRAL: Patent. No dissection. [place]: No other significant finding. No [place] stenosis, vascular malformation, or aneurysm. No neck masses or adenopathy. Lung apices are clear. Airways are patent. Very mild degenerative ch anges in the cervical spine. Imaging of the brain parenchyma demonstrates an early subacute nonhemorrhagic infarct in the right po sterior cerebral artery distribution involving the right occipital cortex. OTHER: 3-D reconstructions confirm findings. IMPRESSION: NORMAL CTA OF THE EXTRA-CRANIAL CAROTID AND VERTEBRAL ARTERIES. NORMAL CTA OF THE [place] COMMENT: Quality ID #[id number]: Measurements of distal internal carotid diameter were used as the denomina tor for stenosis measurement. TECHNICAL DOCUMENTATION: JOB ID: [id number] Quality ID # 436: Final reports with documentation of one or more dose reduction techniques (e.g., Au tomated exposure control, adjustment of the mA and/or kV according to patient size, use of iterative reconstruction technique) 2010 [employer]- All Rights Reserved Reading location - IP/workstation name: [email or web address]-
[2018-10-05] MEDS: RIVAROXABAN 10 MG TABLET PO SCH (17:40)
[2018-10-05] MEDS: LAMICTAL 200 MG PO SCH (21:00)
[2018-10-05] MEDS ORDERED: LORAZEPAM INJ 2 MG/1 ML VIAL IV ONE ×2 (21:43→22:00)
[2018-10-05] MEDS ORDERED: DIAZEPAM INJ 10 MG/2 ML DISP.SYRIN IV PRN (21:46)
[2018-10-05] MEDS ORDERED: LORAZEPAM INJ 2 MG/1 ML VIAL ONE (21:47)
[2018-10-05] MEDS: ESCITALOPRAM OXALATE 10 MG TABLET PO SCH (21:56)
[2018-10-05] MEDS: ATORVASTATIN CALCIUM 40 MG TABLET PO SCH (21:57)
[2018-10-05] MEDS ORDERED: ARIPIPRAZOLE 5 MG TABLET PO ONE (22:00)
[2018-10-06] MEDS: KETOROLAC TROMETHAMINE INJ/PF 30 MG/1 ML SDV IV PRN (01:43)
[2018-10-06] MEDS: CEFAZOLIN SODIUM 2 GM in DEXTROSE 5%-WATER 100 ML IV SCH ×3 (05:13→18:22)
[2018-10-06 05:14] LABS: ABSOLUTE BASOPHILS # (AUTO) 0.1 10^3/uL (0.0-0.2); ABSOLUTE EOSINOPHILS # (AUTO) 0.1 10^3/uL (0.0-0.6); ABSOLUTE LYMPHOCYTES (AUTO) 1.3 10^3/uL (0.5-4.7); ABSOLUTE MONOCYTES (AUTO) 0.8 10^3/uL (0.1-1.4); ABSOLUTE NEUT (AUTO) 3.8 10^3/uL (1.7-8.2); BASOPHILS % (AUTO) 1.3 % (0-2); EOSINOPHILS % (AUTO) 2.3 % (0-6); HEMOGLOBIN 10.1 g/dL (12.0-15.5); LYMPHOCYTES % (AUTO) 21.3 % (13-45); MEAN CORPUSCULAR HGB CONC 34.9 g/dL (32.0-36.0); MEAN CORPUSCULAR VOLUME 86 fl (80-97); MONOCYTES % (AUTO) 12.8 % (3-13); PLATELET COUNT 222 10^3/uL (150-450); RED BLOOD COUNT 3.37 10^6/uL (3.72-5.28); RED CELL DISTRIBUTION WIDTH 12.5 % (11.5-14.0); SEGMENTED NEUTROPHILS % (AUTO) 62.3 % (42-78); TOTAL CELLS COUNTED % (AUTO) 100 %; WHITE BLOOD COUNT 6.2 10^3/uL (4.0-10.5)
[2018-10-06] MEDS: ACETAMINOPHEN 325 MG TABLET PO PRN (05:20)
[2018-10-06] MEDS: PANTOPRAZOLE SODIUM 40 MG TABLET.DR PO SCH (05:20)
[2018-10-06 05:36] LABS: ANION GAP 11 (5-19); BLOOD UREA NITROGEN 11 mg/dL (7-20); CALCIUM 8.6 mg/dL (8.4-10.2); CARBON DIOXIDE 28 mmol/L (22-30); CHLORIDE 97 mmol/L (98-107); GLUCOSE 95 mg/dL (75-110); SODIUM 136.1 mmol/L (137-145)
[2018-10-06 06:02] LABS: POTASSIUM 2.9 mmol/L (3.6-5.0)
[2018-10-06] MEDS: POTASSIUM CHLORIDE 20 MEQ/50 ML RTU IV SCH ×2 (06:37→08:49)
--- NOTE | 2018-10-06 08:31 | PDOC PROGRESS REPORT ---
Subjective Progress Note for:: 10/06/18 Subjective:: Patient without complaints this morning. Daughter at bedside. Nurses report confusion with sundowning last night. Reason For Visit: HIP FRACTURE Physical Exam Vital Signs: Temp Pulse Resp BP Pulse Ox 99.4 F 78 20 135/55 H 91 L 10/06/18 03:44 10/06/18 03:44 10/06/18 03:44 10/06/18 03:44 10/06/18 03:44 Intake & Output 10/05/18 10/06/18 10/07/18 06:59 06:59 06:59 Intake Total 500 600 Output Total 1850 2049 Balance -1350 -1450 Weight 81.8 kg 84.1 kg General appearance: PRESENT: well-developed, well-nourished Head exam: PRESENT: normocephalic Respiratory exam: PRESENT: clear to auscultation oc, unlabored Cardiovascular exam: PRESENT: RRR Extremities exam: ABSENT: pedal edema Skin exam: PRESENT: normal color Results Laboratory Results: 10/06/18 04:19 10/06/18 04:19 10/05/18 10/06/18 10/06/18 07:06 04:19 04:19 WBC 6.2 RBC 3.37 L Hgb 10.1 L Hct 29.0 L MCV 86 MCH 30.0 MCHC 34.9 RDW 12.5 Plt Count 222 Seg Neutrophils % 62.3 Lymphocytes % 21.3 Monocytes % 12.8 Eosinophils % 2.3 Basophils % 1.3 Absolute Neutrophils 3.8 Absolute Lymphocytes 1.3 Absolute Monocytes 0.8 Absolute Eosinophils 0.1 Absolute Basophils 0.1 Sodium 136.1 L Potassium 2.9 L* Chloride 97 L Carbon Dioxide 28 Anion Gap 11 BUN 11 Creatinine 0.84 Est GFR ( Amer) > 60 Est GFR (Non-Af Amer) > 60 Glucose 95 Calcium 8.6 Magnesium Free T4 1.47 Free T3 pg/mL 3.32 10/06/18 04:19 WBC RBC Hgb Hct MCV MCH MCHC RDW Plt Count Seg Neutrophils % Lymphocytes % Monocytes % Eosinophils % Basophils % Absolute Neutrophils Absolute Lymphocytes Absolute Monocytes Absolute Eosinophils Absolute Basophils Sodium Potassium Chloride Carbon Dioxide Anion Gap BUN Creatinine Est GFR ( Amer) Est GFR (Non-Af Amer) Glucose Calcium Magnesium 1.9 Free T4 Free T3 pg/mL 0710/01/18 10/01/18 13:01 13:01 18:20 Creatine Kinase 77 90 CK-MB (CK-2) 0.72 Troponin I < 0.012 NT-Pro-B Natriuret Pep 10/01/18 10/02/18 10/02/18 18:20 00:41 00:41 Creatine Kinase 100 CK-MB (CK-2) 0.72 0.90 Troponin I < 0.012 < 0.012 NT-Pro-B Natriuret Pep 10/02/18 04:09 Creatine Kinase CK-MB (CK-2) Troponin I NT-Pro-B Natriuret Pep 171 Impressions: Cervical Spine CT 10/01/18 11:46 IMPRESSION: CHRONIC DEGENERATIVE CHANGES. NO ACUTE FINDINGS. Hip X-Ray 10/02/18 18:30 IMPRESSION: Postoperative changes of left hip hemiarthroplasty. Chest X-Ray 10/04/18 07:00 IMPRESSION: Cardiomegaly. No acute findings. 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 ANTEGRADE PULSATILE VERTEBRAL ARTERY FLOW BILATERALLY. HOWEVER, PATIENT DOES HAVE A POSTERIOR CIRCULATION INFARCT. CTA OF CERVICAL VESSELS SHOULD BE CONSIDERED. THIS FINDING WAS DISCUSSED WITH DR CAT Neck CTA 10/05/18 00:00 IMPRESSION: NORMAL CTA OF THE EXTRA-CRANIAL CAROTID AND VERTEBRAL ARTERIES. NORMAL CTA OF THE [place] Head CTA 10/05/18 11:43 IMPRESSION: NORMAL CTA OF THE EXTRA-CRANIAL CAROTID AND VERTEBRAL ARTERIES. NORMAL CTA OF THE [place] Assessment & Plan - Diagnosis (1) Breast cancer Qualifiers: Breast location: upper outer quadrant of breast Estrogen receptor status: positive Patient sex: female Laterality: right Qualified Code(s): C50.411 - Malignant neoplasm of upper-outer quadrant of right female breast; Z17.0 - Estrogen receptor positive status [ER+] Is this a current diagnosis for this admission?: Yes Plan: Continue Femara 2.5 mg po Daily. Follow-up as outpatient as previously scheduled. (2) Fracture of left hip Qualifiers: Encounter type: initial encounter Fracture type: closed Qualified Code(s): S72.002A - Fracture of unspecified part of neck of left femur, initial encounter for closed fracture Is this a current diagnosis for this admission?: Yes Plan: Continue Xarelto 10 mg daily. DVT prophylaxis. - Plan Summary Plan Summary: OK for rehab from my standpoint. She may always have difficulty with sundowning and confusion. Would use Haldol PRN for this. I will defer to primary team.
[2018-10-06] MEDS: LEVETIRACETAM 500 MG TABLET PO SCH ×2 (08:53→21:19)
[2018-10-06] MEDS: LAMICTAL 150 MG PO SCH (08:54)
[2018-10-06] MEDS ORDERED: POTASSIUM CHLORIDE 10 MEQ CAPSULE.ER PO ONE (10:00)
--- NOTE | 2018-10-06 10:13 | RADIOLOGY REPORT (SQ) ---
EXAM DESCRIPTION: CT HEAD WITHOUT COMPLETED DATE/TIME: 10/06/2018 9:56 am REASON FOR STUDY: CVA,?new left arm weakness COMPARISON: CT BRAIN 10/04/2018, 10/01/2018 TECHNIQUE: Axial images acquired through the brain without intravenous contrast. Images reviewed wi th bone, brain and subdural windows. Additional sagittal and coronal reconstructions were generated. Images stored on PACS. All CT scanners at this facility use dose modulation, iterative reconstruction, and/or weight based d osing when appropriate to reduce radiation dose to as low as reasonably achievable (ALARA). [facility]: Dose Right [facility]: CareDose [facility]: Dose Right [facility]: Teradose 4D [facility]: [employer] RADIATION DOSE: CT Rad equipment meets quality standard of care and radiation dose reduction techniq ues were employed. CTDIvol: 48.6 mGy. DLP: 953 mGy-cm. mGy. LIMITATIONS: None. FINDINGS: VENTRICLES: Normal size and contour. CEREBRUM: Stable right posterior cerebral artery distribution infarct in the right occipital cortex a nd white matter on axial image 14. On axial image 19 and coronal image 14, there is now low attenuation in the right posterior internal capsule/lateral basal ganglia. This is more conspicuous than on prior exams and likely represents ev olving nonhemorrhagic infarct. Benign basal ganglia calcifications are present with extensive small vessel ischemic change in the bi frontal and biparietal white matter, stable compared to prior studies. CEREBELLUM: No masses. No hemorrhage. No alteration of density. No evidence for acute infarction. EXTRAAXIAL SPACES: No fluid collections. No masses. ORBITS AND GLOBE: No intra- or extraconal masses. Post bilateral cataract surgery CALVARIUM: No fracture. PARANASAL SINUSES: No fluid or mucosal thickening. SOFT TISSUES: No mass or hematoma. OTHER: No other significant finding. IMPRESSION: Stable right posterior cerebral artery distribution infarct in the right occipital alicia x and white matter Infarct in the right posterior internal capsule/ lateral basal ganglia is now more conspicuous than o n prior exams and likely represents evolving nonhemorrhagic infarct EVIDENCE OF ACUTE STROKE: Yes, early subacute infarcts in the right occipital lobe and right posterio r internal capsule/ lateral basal ganglia COMMENT: Quality ID # 436: Final reports with documentation of one or more dose reduction techniques (e.g., Automated exposure control, adjustment of the mA and/or kV according to patient size, use of iterative reconstruction technique) TECHNICAL DOCUMENTATION: JOB ID: [id number] [employer]- All Rights Reserved Reading location - IP/workstation name: [email or web address]
[2018-10-06] MEDS: LETROZOLE 2.5 MG TABLET PO SCH (10:46)
[2018-10-06] MEDS: SENNOSIDES/DOCUSATE 8.6-50 MG 1 EACH TABLET PO SCH ×2 (10:46→18:21)
[2018-10-06] MEDS: VITAMIN E (DL, ACETATE) 400 UNIT CAPSULE PO SCH (10:46)
[2018-10-06] MEDS: OMEGA-3 ACID ETHYL ESTERS 1 GM CAPSULE PO SCH ×2 (10:46→21:31)
[2018-10-06] MEDS: PRENATAL VITAMIN W DHA CAPSULE PO SCH (10:46)
[2018-10-06] MEDS: ONDANSETRON HCL INJ/PF 4 MG/2 ML SDV IV PRN (13:36)
--- NOTE | 2018-10-06 14:24 | PSYCHOLOGICAL NOTE ---
Psych Note - Psych Note Date seen by psych provider: 10/06/18 Time seen by psych provider: 12:15 - 1230 Psych Note: Reason for Consult: Medication recommendations 78-year-old female with history of breast cancer, seizure disorder, depression and anxiety was admitted with a fall with left hip fracture. Patient currently is unable to engage in evaluation. Family at bedside (daughter and granddaughter). They disclosed the patient had a bout of depression and was taking Lexapro for it. They deny any significant mental health history. When discussing current presentation of patient they deny history of confusion or significant memory loss. They report that the patient did have some episodes of short-term memory such as what she had for dinner etc. but no significant concerns. They report the patient's current presentation has been since her surgery. Patient's daughter states that at approximately 3 or 3:30 PM the patient becomes "like Vani Price.... Last night was really bad when they gave her something that they said would help calm her." She shows scratches going up and down her arm that she reports she obtained from the patient after receiving the medication last night. They disclosed that the patient does have a neurologist for seizures. Per family, when the patient has a urinary tract infection, she tends to have seizures. Chart Review Head CT 10/01/18 11:46 IMPRESSION: CHRONIC CHANGES OF ATROPHY AND MICROVASCULAR ISCHEMIA. NO ACUTE PROCESS. EVIDENCE OF ACUTE STROKE: NO. Patient undergone surgery 10/02/2018 for left hip fracture; no complications noted. Head CT 10/04/18 18:02 IMPRESSION: Subacute nonhemorrhagic infarct in the right occipital lobe EVIDENCE OF ACUTE STROKE: Yes Head CT 10/06/2018 09:56 IMPRESSION: Stable right posterior cerebral artery distribution infarct in the right occipital cortex and white matter. Infarct in the right posterior internal capsule/lateral basal ganglia is now more conspicuous than on prior exams and likely represents evolving nonhemorrhagic infarct. EVIDENCE OF ACUTE STROKE: Yes, early subacute infarcts in the right occipital lobe and right posterior internal capsule/lateral basal ganglia. Medication recommendations per [facility]'s contracted psychiatrist Dr Parrish WORKMAN are as follows Please discontinue lexapro and Valium Please add Rispirdone 0.25mg every 12 hours as needed Please add Bupar 5 mg twice daily Please continue Lamictal and Keppra with close monitoring of blood levels Attending physicians are asked to consider to avoid prescribing benzodiazepines (e.g. Ativan, Xanax, Valium, Klonopin), antipsychotics (e.g. Haldol, Geodon, Zyprexa, Seroquel), some sleep aids (e.g. Ambien, Lunesta, Sonata), narcotic pain medications, and high-dose steroids (prednisone) as these have been known to cause and/or increased symptoms of aggression, psychosis and/or paranoia in patients with neurodegenerative processes such as dementia, Alzheimer's disease, traumatic brain injury, etc. Impression/Plan: Patient is cleared from acute psychiatric services. Patient is experiencing multiple chronic and current medial issues that is contributing to presentation (ie seizure disorder, noted atrophy in Head CT prior to surgery, anesthesia, UTI, and evidence of acute stroke following surgery). In geriatric populations, urinary tract infection can cause an acute change in mental status. This can range from agitation, aggression and restlessness to withdrawing, confusion, hallucinations or delusions. Additionally, geriatric patient that require anesthesia run a higher risk for Postoperative delirium and Postoperative cognitive dysfunction (POCD); this can last days, weeks or months; in severe cases some cognitive changes can be permanent. Thus, patient's presentation is felt to be of medical etiology, not psychiatric; medication recommendations have been provided. Please re-consult if new concerns arise. Dr. Jacob was consulted on the care and management of this patient; attending physician is in agreement with recommendations and disposition.
--- NOTE | 2018-10-06 14:47 | PDOC PROGRESS REPORT ---
Subjective Progress Note for:: 10/06/18 Subjective:: This is a 78-year-old female past medical history of breast cancer in remission and history of seizure disorder who was admitted after sustaining a left hip fracture from a fall. 10/03: Patient underwent left hemiarthroplasty by orthopedics yesterday afternoon. She was also started on Xarelto for DVT prophylaxis postop. Per RN, patient had an episode of confusion overnight and pulled her Etienne out. She also reportedly dropped her saturation to the high 80s and was placed on nasal cannula. Upon encounter, patient appears comfortable and denies any complaints. Denies any chest pain or shortness of breath. Will try to wean off O2 today and see if she really requires O2 support. Will obtain a chest x-ray. 10/04: Patient had an episode of infusion agitation overnight and had to be placed in restraints. This morning, she was given a dose of Haldol. Upon e ncounter, she was easily arousable and oriented to person. Chest x-ray yesterday afternoon did show interstitial edema. IV fluids were discontinued and she was given 2 doses of IV Lasix. Repeat chest x-ray this morning showed resolution of interstitial edema and congestion. 10/05: Patient's head CT last night did show a subacute left-sided infarct probably a week 2 months old. She did send down last night. This morning, she appears comfortable and is oriented to person. Today states she is at home. She denies other acute complaints. Denies chest pain, shortness of breath, headache, dizziness or leg pain. Her waxing and waning confusion is likely from acute delirium, multifactorial from UTI, recent surgery, pulmonary congestion and CVA in an elderly patient with possible dementia. Carotid Doppler reveals antegrade flow in the vertebral artery. Discussed with radiology. Will pursue a CT of the neck/head to rule out a dissection. 10/06: Patient had sundowning episodes will last night and had agitation and restlessness. This morning, she is easily arousable and is oriented to person. Repeat CT of the head shows stable CVA in the right [place] distribution but possible involvement of nonhemorrhagic infarct on the right internal capsule. Discussed with [facility] neurology, Dr. Graham who is also patient's neurologist. She has recommended pursuing an MRI and continuing current management at the moment. Reason For Visit: HIP FRACTURE Physical Exam Vital Signs: Temp Pulse Resp BP Pulse Ox 97.9 F 73 24 H 128/55 H 91 L 10/06/18 11:13 10/06/18 11:13 10/06/18 11:13 10/06/18 11:13 10/06/18 11:13 Intake & Output 10/05/18 10/06/18 10/07/18 06:59 06:59 06:59 Intake Total 500 600 50 Output Total 1850 2050 Balance -1350 -1450 50 Weight 180 lb 5.41 oz 185 lb 6.54 oz General appearance: PRESENT: no acute distress, well-developed, well-nourished Head exam: PRESENT: atraumatic, normocephalic Eye exam: PRESENT: conjunctiva pink, EOMI, PERRLA. ABSENT: scleral icterus Ear exam: PRESENT: normal external ear exam Mouth exam: PRESENT: moist, tongue midline Neck exam: ABSENT: carotid bruit, JVD, lymphadenopathy, thyromegaly Respiratory exam: PRESENT: clear to auscultation oc. ABSENT: rales, rhonchi, wheezes Cardiovascular exam: PRESENT: RRR. ABSENT: diastolic murmur, rubs, systolic murmur Pulses: PRESENT: normal dorsalis pedis pul GI/Abdominal exam: PRESENT: normal bowel sounds, soft. ABSENT: distended, guarding, mass, organolmegaly, rebound, tenderness Rectal exam: PRESENT: deferred Neurological exam: PRESENT: alert, awake, oriented to person, oriented to place, oriented to time, oriented to situation, CN II-XII grossly intact, motor sensory deficit - 4/5 left arm weakness Results Laboratory Results: 10/06/18 04:19 10/06/18 04:19 10/06/18 10/06/18 10/06/18 04:19 04:19 04:19 WBC 6.2 RBC 3.37 L Hgb 10.1 L Hct 29.0 L MCV 86 MCH 30.0 MCHC 34.9 RDW 12.5 Plt Count 222 Seg Neutrophils % 62.3 Lymphocytes % 21.3 Monocytes % 12.8 Eosinophils % 2.3 Basophils % 1.3 Absolute Neutrophils 3.8 Absolute Lymphocytes 1.3 Absolute Monocytes 0.8 Absolute Eosinophils 0.1 Absolute Basophils 0.1 Sodium 136.1 L Potassium 2.9 L* Chloride 97 L Carbon Dioxide 28 Anion Gap 11 BUN 11 Creatinine 0.84 Est GFR ( Amer) > 60 Est GFR (Non-Af Amer) > 60 Glucose 95 Calcium 8.6 Magnesium 1.9 10/01/18 10/01/18 10/01/18 13:01 13:01 18:20 Creatine Kinase 77 90 CK-MB (CK-2) 0.72 Troponin I < 0.012 NT-Pro-B Natriuret Pep 10/01/18 10/02/18 10/02/18 18:20 00:41 00:41 Creatine Kinase 100 CK-MB (CK-2) 0.72 0.90 Troponin I < 0.012 < 0.012 NT-Pro-B Natriuret Pep 10/02/18 04:09 Creatine Kinase CK-MB (CK-2) Troponin I NT-Pro-B Natriuret Pep 171 Impressions: Cervical Spine CT 10/01/18 11:46 IMPRESSION: CHRONIC DEGENERATIVE CHANGES. NO ACUTE FINDINGS. Hip X-Ray 10/02/18 18:30 IMPRESSION: Postoperative changes of left hip hemiarthroplasty. Chest X-Ray 10/04/18 07:00 IMPRESSION: Cardiomegaly. No acute findings. Carotid Doppler Study 10/04/18 19:36 IMPRESSION: NO HEMODYNAMICALLY SIGNIFICANT STENOSIS AT THE CAROTID BIFURCATIO NS. ANTEGRADE PULSATILE VERTEBRAL ARTERY FLOW BILATERALLY. HOWEVER, PATIENT DOES HAVE A POSTERIOR CIRCULATION INFARCT. CTA OF CERVICAL VESSELS SHOULD BE CONSIDERED. THIS FINDING WAS DISCUSSED WITH DR CAT Neck CTA 10/05/18 00:00 IMPRESSION: NORMAL CTA OF THE EXTRA-CRANIAL CAROTID AND VERTEBRAL ARTERIES. NORMAL CTA OF THE [place] Head CTA 10/05/18 11:43 IMPRESSION: NORMAL CTA OF THE EXTRA-CRANIAL CAROTID AND VERTEBRAL ARTERIES. NORMAL CTA OF THE [place] Head CT 10/06/18 08:49 IMPRESSION: Stable right posterior cerebral artery distribution infarct in the right occipital cortex and white matter Infarct in the right posterior internal capsule/ lateral basal ganglia is now more conspicuous than on prior exams and likely represents evolving nonhemorrhagic infarct EVIDENCE OF ACUTE STROKE: Yes, early subacute infarcts in the right occipital lobe and right posterior internal capsule/ lateral basal ganglia Assessment and Plan - Diagnosis (1) Acute delirium Is this a current diagnosis for this admission?: Yes Plan: Multifactorial from UTI, recent CVA, pulmonary congestion and acute hospitalization. Family does say that patient has been suspected to have mild dementia. (2) Acute CVA (cerebrovascular accident) Is this a current diagnosis for this admission?: Yes Plan: CT showed subacute CVA. Not a TPA candidate due to subacuity of CVA and patient being on Xarelto. Family also does not wnat to add any antiplatelet as they are not amenable to the risks of bleeding as she is already on Xarelto. Discussed with [facility] neurology, Dr. Graham who is also patient's neurologist. She has recommended pursuing an MRI and continuing current management at the moment. (3) Left displaced femoral neck fracture Is this a current diagnosis for this admission?: Yes Plan: S/P left hemiarthroplasty on 10/02/2018. On Xarelto for DVT prophylaxis. (4) Breast cancer Qualifiers: Breast location: upper outer quadrant of breast Estrogen receptor status: positive Patient sex: female Laterality: right Qualified Code(s): C50.411 - Malignant neoplasm of upper-outer quadrant of right female breast; Z17.0 - Estrogen receptor positive status [ER+] Is this a current diagnosis for this admission?: Yes Plan: In remission. Appreciate oncology input. (5) Seizure disorder Is this a current diagnosis for this admission?: Yes Plan: Continue Lamictal and Keppra. (6) UTI (urinary tract infection) Is this a current diagnosis for this admission?: Yes Plan: On cefazolin. (7) Pulmonary congestion Is this a current diagnosis for this admission?: Yes Plan: 10/04: Chest x-ray yesterday showed interstitial edema. IV fluids were disconti nued and she was given 2 doses of IV Lasix. Repeat chest x-ray this morning shows resolution of interstitial edema. (8) Hypokalemia Is this a current diagnosis for this admission?: Yes Plan: Potassium at 2.9. Replacing with oral and IV Potassium. - Time Time Spent with patient: 25-34 minutes
--- NOTE | 2018-10-06 14:48 | PDOC PROGRESS REPORT ---
Subjective Subjective:: Patient lying in bed. According to nursing staff she continues to have sundowning and confusion. Most recent head CT demonstrates subacute versus acute stroke. Does not complain of pain. Reason For Visit: HIP FRACTURE Physical Exam Vital Signs: Temp Pulse Resp BP Pulse Ox 97.9 F 73 24 H 128/55 H 91 L 10/06/18 11:13 10/06/18 11:13 10/06/18 11:13 10/06/18 11:13 10/06/18 11:13 Intake & Output 10/05/18 10/06/18 10/07/18 06:59 06:59 06:59 Intake Total 500 600 50 Output Total 1850 2050 Balance -1350 -1450 50 Weight 81.8 kg 84.1 kg General appearance: PRESENT: disheveled Musculoskeletal exam: PRESENT: other - Left hip: Dressing clean/dry/intact no erythema or drainage. Moderate thigh swelling without change, intact plantarflexion/dorsiflexion. No sensory deficits. No calf tenderness. Results Laboratory Results: 10/06/18 04:19 10/06/18 04:19 10/06/18 10/06/18 10/06/18 04:19 04:19 04:19 WBC 6.2 RBC 3.37 L Hgb 10.1 L Hct 29.0 L MCV 86 MCH 30.0 MCHC 34.9 RDW 12.5 Plt Count 222 Seg Neutrophils % 62.3 Lymphocytes % 21.3 Monocytes % 12.8 Eosinophils % 2.3 Basophils % 1.3 Absolute Neutrophils 3.8 Absolute Lymphocytes 1.3 Absolute Monocytes 0.8 Absolute Eosinophils 0.1 Absolute Basophils 0.1 Sodium 136.1 L Potassium 2.9 L* Chloride 97 L Carbon Dioxide 28 Anion Gap 11 BUN 11 Creatinine 0.84 Est GFR ( Amer) > 60 Est GFR (Non-Af Amer) > 60 Glucose 95 Calcium 8.6 Magnesium 1.9 10/01/18 10/01/18 10/01/18 13:01 13:01 18:20 Creatine Kinase 77 90 CK-MB (CK-2) 0.72 Troponin I < 0.012 NT-Pro-B Natriuret Pep 10/01/18 10/02/18 10/02/18 18:20 00:41 00:41 Creatine Kinase 100 CK-MB (CK-2) 0.72 0.90 Troponin I < 0.012 < 0.012 NT-Pro-B Natriuret Pep 10/02/18 04:09 Creatine Kinase CK-MB (CK-2) Troponin I NT-Pro-B Natriuret Pep 171 Impressions: Cervical Spine CT 10/01/18 11:46 IMPRESSION: CHRONIC DEGENERATIVE CHANGES. NO ACUTE FINDINGS. Hip X-Ray 10/02/18 18:30 IMPRESSION: Postoperative changes of left hip hemiarthroplasty. Chest X-Ray 10/04/18 07:00 IMPRESSION: Cardiomegaly. No acute findings. Carotid Doppler Study 10/04/18 19:36 IMPRESSION: NO HEMODYNAMICALLY SIGNIFICANT STENOSIS AT THE CAROTID BIFURCATIONS. ANTEGRADE PULSATILE VERTEBRAL ARTERY FLOW BILATERALLY. HOWEVER, PATIENT DOES HAVE A POSTERIOR CIRCULATION INFARCT. CTA OF CERVICAL VESSELS SHOULD BE CONSIDERED. THIS FINDING WAS DISCUSSED WITH DR CAT Neck CTA 10/05/18 00:00 IMPRESSION: NORMAL CTA OF THE EXTRA-CRANIAL CAROTID AND VERTEBRAL ARTERIES. NORMAL CTA OF THE [place]LLER OF LUX Head CTA 10/05/18 11:43 IMPRESSION: NORMAL CTA OF THE EXTRA-CRANIAL CAROTID AND VERTEBRAL ARTERIES. NORMAL CTA OF THE [place]ER OF LUX Head CT 10/06/18 08:49 IMPRESSION: Stable right posterior cerebral artery distribution infarct in the right occipital cortex and white matter Infarct in the right posterior internal capsule/ lateral basal ganglia is now more conspicuous than on prior exams and likely represents evolving nonhemorrhagic infarct EVIDENCE OF ACUTE STROKE: Yes, early subacute infarcts in the right occipital lobe and right posterior internal capsule/ lateral basal ganglia Assessment & Plan - Diagnosis (1) Left displaced femoral neck fracture Is this a current diagnosis for this admission?: Yes Plan: status post left hip hemiarthroplasty 1. Pain control 2. Xarelto for DVT prophylaxis 3. Physical therapy with hip precautions 4. Altered mental status possibly secondary to recent stroke defer to primary team 5. Discharge planning patient will require nursing facility when bed available and when cleared by hospitalist service
[2018-10-06 15:33] LABS: ALANINE AMINOTRANSFERASE 23 U/L (9-52); ALBUMIN 3.2 g/dL (3.5-5.0); ALKALINE PHOSPHATASE 66 U/L (38-126); ANION GAP 11 (5-19); ASPARTATE AMINO TRANSFERASE 93 U/L (14-36); BILIRUBIN,DIRECT 0.5 mg/dL (0.0-0.4); BILIRUBIN,TOTAL 0.8 mg/dL (0.2-1.3); BLOOD UREA NITROGEN 11 mg/dL (7-20); CALCIUM 8.4 mg/dL (8.4-10.2); CARBON DIOXIDE 29 mmol/L (22-30); CHLORIDE 98 mmol/L (98-107); GLUCOSE 108 mg/dL (75-110); SODIUM 137.6 mmol/L (137-145); TOTAL PROTEIN 5.9 g/dL (6.3-8.2)
[2018-10-06] MEDS: RIVAROXABAN 10 MG TABLET PO SCH (18:21)
[2018-10-06] MEDS: POTASSI CL 20 MEQ/50 ML RIDER 20 MEQ/50 ML RTUPB IV SCH ×2 (19:06→22:20)
[2018-10-06] MEDS: BUSPIRONE HCL 10 MG TABLET PO SCH (21:19)
[2018-10-06] MEDS: RISPERIDONE 0.25 MG TABLET PO SCH (21:19)
[2018-10-06] MEDS: LAMICTAL 200 MG PO SCH (21:20)
[2018-10-06] MEDS: ATORVASTATIN CALCIUM 40 MG TABLET PO SCH (21:31)
--- NOTE | 2018-10-06 21:45 | RADIOLOGY REPORT (SQ) ---
MR BRAIN WITHOUT IV CONTRAST EXAM DATE: 10/06/2018 2:38 PM CDT HISTORY: MRI for subacute CVA [facility]. COMPARISON: CT scan from earlier the same day. TECHNIQUE: Multisequence, multiplanar MR imaging of the brain was performed without the administration of intravenous gadolinium. Motion artifact limits evaluation. FINDINGS: There is an acute infarction involving the right occipital lobe. There are also additional lacunar infarcts of the right thalamus and right frontal and posterior subcortical white matter. The ventricles and sulci are normal in size. There is no acute infarction, intracranial hemorrhage, extra-axial fluid collection, or mass. The brainstem, posterior fossa, and cervicomedullary junction are preserved. The intravascular flow voids are preserved. The orbits are unremarkable. No abnormality of the skull base or calvarium is seen. The paranasal sinuses are clear. IMPRESSION: 1. Acute infarct of the right occipital lobe. 2. Acute lacunar infarct in the right thalamus. 3. Acute lacunar infarcts of the right frontal and parietal subcortical white matter. 4. No acute intracranial hemorrhage.
[2018-10-07] MEDS: CEFAZOLIN SODIUM 2 GM in DEXTROSE 5%-WATER 100 ML IV SCH ×5 (00:16→23:09)
[2018-10-07] MEDS ORDERED: POTASSI CL 20 MEQ/50 ML RIDER 20 MEQ/50 ML RTUPB IV ONE (01:12)
[2018-10-07] MEDS: POTASSI CL 20 MEQ/50 ML RIDER 20 MEQ/50 ML RTUPB IV SCH (01:14)
[2018-10-07] MEDS: PANTOPRAZOLE SODIUM 40 MG TABLET.DR PO SCH (05:23)
[2018-10-07 06:48] LABS: ABSOLUTE EOSINOPHILS # (AUTO) 0.1 10^3/uL (0.0-0.6); ABSOLUTE LYMPHOCYTES (AUTO) 1.3 10^3/uL (0.5-4.7); ABSOLUTE MONOCYTES (AUTO) 0.6 10^3/uL (0.1-1.4); BASOPHILS % (AUTO) 0.9 % (0-2); EOSINOPHILS % (AUTO) 2.8 % (0-6); HEMATOCRIT 28.5 % (36.0-47.0); HEMOGLOBIN 9.9 g/dL (12.0-15.5); MEAN CORPUSCULAR HEMOGLOBIN 30.1 pg (27.0-33.4); MEAN CORPUSCULAR HGB CONC 34.9 g/dL (32.0-36.0); MEAN CORPUSCULAR VOLUME 86 fl (80-97); MONOCYTES % (AUTO) 11.7 % (3-13); PLATELET COUNT 270 10^3/uL (150-450); RED CELL DISTRIBUTION WIDTH 12.8 % (11.5-14.0); SEGMENTED NEUTROPHILS % (AUTO) 59.6 % (42-78); TOTAL CELLS COUNTED % (AUTO) 100 %
[2018-10-07 06:55] LABS: ANION GAP 9 (5-19); BLOOD UREA NITROGEN 9 mg/dL (7-20); CALCIUM 8.4 mg/dL (8.4-10.2); CARBON DIOXIDE 27 mmol/L (22-30); CHLORIDE 103 mmol/L (98-107); GLUCOSE 99 mg/dL (75-110); POTASSIUM 3.4 mmol/L (3.6-5.0); SODIUM 138.7 mmol/L (137-145)
[2018-10-07] MEDS: LEVETIRACETAM 500 MG TABLET PO SCH ×2 (08:55→21:09)
[2018-10-07] MEDS: LAMICTAL 150 MG PO SCH (08:56)
[2018-10-07] MEDS: BUSPIRONE HCL 10 MG TABLET PO SCH ×2 (09:00→21:08)
[2018-10-07] MEDS: SENNOSIDES/DOCUSATE 8.6-50 MG 1 EACH TABLET PO SCH ×2 (09:00→17:49)
[2018-10-07] MEDS: RISPERIDONE 0.25 MG TABLET PO SCH ×2 (09:01→17:49)
[2018-10-07] MEDS: LETROZOLE 2.5 MG TABLET PO SCH (09:01)
[2018-10-07] MEDS: OMEGA-3 ACID ETHYL ESTERS 1 GM CAPSULE PO SCH ×2 (09:01→21:11)
[2018-10-07] MEDS: PRENATAL VITAMIN W DHA CAPSULE PO SCH (09:01)
[2018-10-07] MEDS: VITAMIN E (DL, ACETATE) 400 UNIT CAPSULE PO SCH (09:02)
--- NOTE | 2018-10-07 10:54 | PDOC PROGRESS REPORT ---
Subjective Progress Note for:: 10/07/18 Subjective:: This is a 78-year-old female past medical history of breast cancer in remission and history of seizure disorder who was admitted after sustaining a left hip fracture from a fall. 10/03: Patient underwent left hemiarthroplasty by orthopedics yesterday afternoon. She was also started on Xarelto for DVT prophylaxis postop. Per RN, patient had an episode of confusion overnight and pulled her Etienne out. She also reportedly dropped her saturation to the high 80s and was placed on nasal cannula. Upon encounter, patient appears comfortable and denies any complaints. Denies any chest pain or shortness of breath. Will try to wean off O2 today and see if she really requires O2 support. Will obtain a chest x-ray. 10/04: Patient had an episode of infusion agitation overnight and had to be placed in restraints. This morning, she was given a dose of Haldol. Upon e ncounter, she was easily arousable and oriented to person. Chest x-ray yesterday afternoon did show interstitial edema. IV fluids were discontinued and she was given 2 doses of IV Lasix. Repeat chest x-ray this morning showed resolution of interstitial edema and congestion. 10/05: Patient's head CT last night did show a subacute left-sided infarct probably a week 2 months old. She did send down last night. This morning, she appears comfortable and is oriented to person. Today states she is at home. She denies other acute complaints. Denies chest pain, shortness of breath, headache, dizziness or leg pain. Her waxing and waning confusion is likely from acute delirium, multifactorial from UTI, recent surgery, pulmonary congestion and CVA in an elderly patient with possible dementia. Carotid Doppler reveals antegrade flow in the vertebral artery. Discussed with radiology. Will pursue a CT of the neck/head to rule out a dissection. 10/06: Patient had sundowning episodes last night and had agitation and restlessness. This morning, she is easily arousable and is oriented to person. Repeat CT of the head shows stable CVA in the right TRUCK LOADER OVERHEAD CRANE distribution but possible involvement of nonhemorrhagic infarct on the right internal capsule. Discussed with [facility] neurology, Dr. Graham who is also patient's neurologist. She has recommended pursuing an MRI and continuing current management at the moment. 10/07: No acute event overnight. Patient has responded well to adding risperidon e last night. No significant agitation or restlessness last night. He has not required restraints since yesterday morning. Upon encounter this morning, she appears more comfortable and more responsive. She is oriented to person and is not combative. Awaiting speech reevaluation as she did have some bouts of vomiting and coughing yesterday when she was given sips of water by family. Daughter on bedside does verbalize that they have discussed her CODE STATUS as a family and they have decided to make her DNR/DNI. She is cleared to be transferred to rehab/SNF. Reason For Visit: HIP FRACTURE Physical Exam Vital Signs: Temp Pulse Resp BP Pulse Ox 98.1 F 76 21 H 136/56 H 91 L 10/07/18 08:04 10/07/18 08:04 10/07/18 08:04 10/07/18 08:04 10/07/18 08:04 Intake & Output 10/06/18 10/07/18 10/08/18 06:59 06:59 06:59 Intake Total 600 770 Output Total 2050 1475 Balance -1450 -705 Weight 185 lb 6.54 oz 189 lb 13.088 oz General appearance: PRESENT: no acute distress, well-developed, well-nourished Head exam: PRESENT: atraumatic, normocephalic Eye exam: PRESENT: conjunctiva pink, EOMI, PERRLA. ABSENT: scleral icterus Ear exam: PRESENT: normal external ear exam Mouth exam: PRESENT: moist, tongue midline Neck exam: ABSENT: carotid bruit, JVD, lymphadenopathy, thyromegaly Respiratory exam: PRESENT: clear to auscultation oc. ABSENT: rales, rhonchi, wheezes Cardiovascular exam: PRESENT: RRR. ABSENT: diastolic murmur, rubs, systolic murmur Pulses: PRESENT: normal dorsalis pedis pul GI/Abdominal exam: PRESENT: normal bowel sounds, soft. ABSENT: distended, guarding, mass, organolmegaly, rebound, tenderness Rectal exam: PRESENT: deferred Extremities exam: PRESENT: full ROM. ABSENT: calf tenderness, clubbing, pedal edema Neurological exam: PRESENT: alert, awake, oriented to person, oriented to place, oriented to time, CN II-XII grossly intact, motor sensory deficit - 4/5 on left arm Results Laboratory Results: 10/07/18 06:31 10/07/18 06:31 10/06/18 10/07/18 10/07/18 14:54 06:31 06:31 WBC 5.0 RBC 3.30 L Hgb 9.9 L Hct 28.5 L MCV 86 MCH 30.1 MCHC 34.9 RDW 12.8 Plt Count 270 Seg Neutrophils % 59.6 Lymphocytes % 25.0 Monocytes % 11.7 Eosinophils % 2.8 Basophils % 0.9 Absolute Neutrophils 3.0 Absolute Lymphocytes 1.3 Absolute Monocytes 0.6 Absolute Eosinophils 0.1 Absolute Basophils 0.0 Sodium 137.6 138.7 Potassium 3.0 L* 3.4 L Chloride 98 103 Carbon Dioxide 29 27 Anion Gap 11 9 BUN 11 9 Creatinine 0.68 0.62 Est GFR ( Amer) > 60 > 60 Est GFR (Non-Af Amer) > 60 > 60 Glucose 108 99 Calcium 8.4 8.4 Total Bilirubin 0.8 AST 93 H ALT 23 Alkaline Phosphatase 66 Total Protein 5.9 L Albumin 3.2 L 10/01/18 10/01/18 10/01/18 13:01 13:01 18:20 Creatine Kinase 77 90 CK-MB (CK-2) 0.72 Troponin I < 0.012 NT-Pro-B Natriuret Pep 10/01/18 10/02/18 10/02/18 18:20 00:41 00:41 Creatine Kinase 100 CK-MB (CK-2) 0.72 0.90 Troponin I < 0.012 < 0.012 NT-Pro-B Natriuret Pep 10/02/18 04:09 Creatine Kinase CK-MB (CK-2) Troponin I NT-Pro-B Natriuret Pep 171 Impressions: Cervical Spine CT 10/01/18 11:46 IMPRESSION: CHRONIC DEGENERATIVE CHANGES. NO ACUTE FINDINGS. Hip X-Ray 10/02/18 18:30 IMPRESSION: Postoperative changes of left hip hemiarthroplasty. Chest X-Ray 10/04/18 07:00 IMPRESSION: Cardiomegaly. No acute findings. Carotid Doppler Study 10/04/18 19:36 IMPRESSION: NO HEMODYNAMICALLY SIGNIFICANT STENOSIS AT THE CAROTID BIFURCATIONS. ANTEGRADE PULSATILE VERTEBRAL ARTERY FLOW BILATERALLY. HOWEVER, PATIENT DOES HAVE A POSTERIOR CIRCULATION INFARCT. CTA OF CERVICAL VESSELS SHOULD BE CONSIDERED. THIS FINDING WAS DISCUSSED WITH DR CAT Neck CTA 10/05/18 00:00 IMPRESSION: NORMAL CTA OF THE EXTRA-CRANIAL CAROTID AND VERTEBRAL ARTERIES. NORMAL CTA OF THE [place] OF LUX Head CTA 10/05/18 11:43 IMPRESSION: NORMAL CTA OF THE EXTRA-CRANIAL CAROTID AND VERTEBRAL ARTERIES. NORMAL CTA OF THE [place] OF LUX Head CT 10/06/18 08:49 IMPRESSION: Stable right posterior cerebral artery distribution infarct in the right occipital cortex and white matter Infarct in the right posterior internal capsule/ lateral basal ganglia is now more conspicuous than on prior exams and likely represents evolving nonhemorrhagic infarct EVIDENCE OF ACUTE STROKE: Yes, early subacute infarcts in the right occipital lobe and right posterior internal capsule/ lateral basal ganglia Head MRI 10/06/18 14:38 IMPRESSION: 1. Acute infarct of the right occipital lobe. 2. Acute lacunar infarct in the right thalamus. 3. Acute lacunar infarcts of the right frontal and parietal subcortical white matter. 4. No acute intracranial hemorrhage. Assessment and Plan - Diagnosis (1) Acute delirium Is this a current diagnosis for this admission?: Yes Plan: Multifactorial from UTI, recent CVA, pulmonary congestion and acute hospitalization. Family does say that patient has been suspected to have mild dementia. 10/07: Much improved with adding risperidone and buspar. Appreciate Psych recommendations. (2) Acute CVA (cerebrovascular accident) Is this a current diagnosis for this admission?: Yes Plan: CT showed subacute CVA. Not a TPA candidate due to subacuity of CVA and patient being on Xarelto. Family also does not want to add any antiplatelet as they are not amenable to the risks of bleeding as she is already on Xarelto. 10/06: Discussed with [facility] neurology, Dr. Graham who is also patient's neurologist. She has recommended pursuing an MRI and continuing current m anagement at the moment. (3) Left displaced femoral neck fracture Is this a current diagnosis for this admission?: Yes Plan: S/P left hemiarthroplasty on 10/02/2018. On Xarelto for DVT prophylaxis. (4) Breast cancer Qualifiers: Breast location: upper outer quadrant of breast Estrogen receptor status: positive Patient sex: female Laterality: right Qualified Code(s): C50.411 - Malignant neoplasm of upper-outer quadrant of right female breast; Z17.0 - Estrogen receptor positive status [ER+] Is this a current diagnosis for this admission?: Yes Plan: In remission. Appreciate oncology input. (5) Seizure disorder Is this a current diagnosis for this admission?: Yes Plan: Continue Lamictal and Keppra. (6) UTI (urinary tract infection) Is this a current diagnosis for this admission?: Yes Plan: On cefazolin. (7) Pulmonary congestion Is this a current diagnosis for this admission?: Yes Plan: 10/04: Chest x-ray yesterday showed interstitial edema. IV fluids were discontinued and she was given 2 doses of IV Lasix. Repeat chest x-ray this morning shows resolution of interstitial edema. (8) Hypokalemia Is this a current diagnosis for this admission?: Yes Plan: Potassium at 2.9. Replacing with oral and IV Potassium. 10/07: Improved at 3.4. - Time Time Spent with patient: 25-34 minutes
[2018-10-07] MEDS: RIVAROXABAN 10 MG TABLET PO SCH (17:49)
--- NOTE | 2018-10-07 17:52 | ADVANCED CARE ---
- Diagnosis (1) Acute delirium Diagnosis Current: Yes (2) Acute CVA (cerebrovascular accident) Diagnosis Current: Yes (3) Left displaced femoral neck fracture Diagnosis Current: Yes (4) Breast cancer Diagnosis Current: Yes (5) Seizure disorder Diagnosis Current: Yes (6) UTI (urinary tract infection) Diagnosis Current: Yes (7) Pulmonary congestion Diagnosis Current: Yes (8) Hypokalemia Diagnosis Current: Yes Resuscitation Status: Do Not Resuscitate Discussion: Discussed with edison zamora. Daughter on bedside, Reba verbalize that they have discussed her CODE STATUS as a family and they have decided to make her DNR/DNI.
[2018-10-07] MEDS: ATORVASTATIN CALCIUM 40 MG TABLET PO SCH (21:08)
[2018-10-07] MEDS: LAMICTAL 200 MG PO SCH (21:10)
[2018-10-07] MEDS: BISACODYL 5 MG TABEC PO PRN (23:12)
[2018-10-08] MEDS: CEFAZOLIN SODIUM 2 GM in DEXTROSE 5%-WATER 100 ML IV SCH (05:18)
[2018-10-08] MEDS: PANTOPRAZOLE SODIUM 40 MG TABLET.DR PO SCH (05:18)
[2018-10-08] MEDS: LEVETIRACETAM 500 MG TABLET PO SCH ×2 (08:57→21:06)
[2018-10-08] MEDS: LAMICTAL 150 MG PO SCH (08:58)
[2018-10-08] MEDS: OMEGA-3 ACID ETHYL ESTERS 1 GM CAPSULE PO SCH ×2 (09:06→21:07)
[2018-10-08] MEDS: PRENATAL VITAMIN W DHA CAPSULE PO SCH (09:07)
[2018-10-08] MEDS: SENNOSIDES/DOCUSATE 8.6-50 MG 1 EACH TABLET PO SCH ×2 (09:07→18:36)
[2018-10-08] MEDS: BUSPIRONE HCL 10 MG TABLET PO SCH ×2 (09:07→21:06)
[2018-10-08] MEDS: RISPERIDONE 0.25 MG TABLET PO SCH ×2 (09:08→18:36)
[2018-10-08] MEDS: LETROZOLE 2.5 MG TABLET PO SCH (09:08)
[2018-10-08] MEDS: VITAMIN E (DL, ACETATE) 400 UNIT CAPSULE PO SCH (09:08)
[2018-10-08 12:02] LABS: ANION GAP 9 (5-19); BLOOD UREA NITROGEN 7 mg/dL (7-20); CARBON DIOXIDE 31 mmol/L (22-30); CHLORIDE 99 mmol/L (98-107); GLUCOSE 119 mg/dL (75-110); POTASSIUM 3.3 mmol/L (3.6-5.0); SODIUM 138.6 mmol/L (137-145)
--- NOTE | 2018-10-08 13:41 | PDOC PROGRESS REPORT ---
Subjective Progress Note for:: 10/08/18 Subjective:: This is a 78-year-old female past medical history of breast cancer in remission and history of seizure disorder who was admitted after sustaining a left hip fracture from a fall. 10/03: Patient underwent left hemiarthroplasty by orthopedics yesterday afternoon. She was also started on Xarelto for DVT prophylaxis postop. Per RN, patient had an episode of confusion overnight and pulled her Etienne out. She also reportedly dropped her saturation to the high 80s and was placed on nasal cannula. Upon encounter, patient appears comfortable and denies any complaints. Denies any chest pain or shortness of breath. Will try to wean off O2 today and see if she really requires O2 support. Will obtain a chest x-ray. 10/04: Patient had an episode of infusion agitation overnight and had to be placed in restraints. This morning, she was given a dose of Haldol. Upon e ncounter, she was easily arousable and oriented to person. Chest x-ray yesterday afternoon did show interstitial edema. IV fluids were discontinued and she was given 2 doses of IV Lasix. Repeat chest x-ray this morning showed resolution of interstitial edema and congestion. 10/05: Patient's head CT last night did show a subacute left-sided infarct probably a week 2 months old. She did send down last night. This morning, she appears comfortable and is oriented to person. Today states she is at home. She denies other acute complaints. Denies chest pain, shortness of breath, headache, dizziness or leg pain. Her waxing and waning confusion is likely from acute delirium, multifactorial from UTI, recent surgery, pulmonary congestion and CVA in an elderly patient with possible dementia. Carotid Doppler reveals antegrade flow in the vertebral artery. Discussed with radiology. Will pursue a CT of the neck/head to rule out a dissection. 10/06: Patient had sundowning episodes last night and had agitation and restlessness. This morning, she is easily arousable and is oriented to person. Repeat CT of the head shows stable CVA in the right CHEF'S ASSISTANT distribution but possible involvement of nonhemorrhagic infarct on the right internal capsule. Discussed with [facility] neurology, Dr. Graham who is also patient's neurologist. She has recommended pursuing an MRI and continuing current management at the moment. 10/07: Patient has responded well to adding risperidone last night. No signific ant agitation or restlessness last night. He has not required restraints since yesterday morning. Upon encounter this morning, she appears more comfortable and more responsive. She is oriented to person and is not combative. Awaiting speech reevaluation as she did have some bouts of vomiting and coughing yesterday when she was given sips of water by family. Daughter on bedside does verbalize that they have discussed her CODE STATUS as a family and they have decided to make her DNR/DNI. She is cleared to be transferred to rehab/SNF. 10/08: No acute event overnight. She continues to do well. She has not required any restraints or any IV sedation for the past 48 hours now. She is awaiting placement to [facility]. Reason For Visit: HIP FRACTURE Physical Exam Vital Signs: Temp Pulse Resp BP Pulse Ox 97.9 F 92 20 143/67 H 96 10/08/18 12:00 10/08/18 12:00 10/08/18 12:00 10/08/18 12:00 10/08/18 12:00 Intake & Output 10/07/18 10/08/18 10/09/18 06:59 06:59 06:59 Intake Total 770 655 480 Output Total 1475 1025 500 Balance -705 -370 -20 Weight 189 lb 13.088 oz 193 lb 9.054 oz General appearance: PRESENT: no acute distress, well-developed, well-nourished Head exam: PRESENT: atraumatic, normocephalic Eye exam: PRESENT: conjunctiva pink, EOMI, PERRLA. ABSENT: scleral icterus Ear exam: PRESENT: normal external ear exam Mouth exam: PRESENT: moist, tongue midline Neck exam: ABSENT: carotid bruit, JVD, lymphadenopathy, thyromegaly Respiratory exam: PRESENT: clear to auscultation oc. ABSENT: rales, rhonchi, wheezes Cardiovascular exam: PRESENT: RRR. ABSENT: diastolic murmur, rubs, systolic murmur Pulses: PRESENT: normal dorsalis pedis pul GI/Abdominal exam: PRESENT: normal bowel sounds, soft. ABSENT: distended, guarding, mass, organolmegaly, rebound, tenderness Rectal exam: PRESENT: deferred Neurological exam: PRESENT: alert, awake, oriented to person Results Laboratory Results: 10/07/18 06:31 10/08/18 11:19 10/08/18 11:19 Sodium 138.6 Potassium 3.3 L Chloride 99 Carbon Dioxide 31 H Anion Gap 9 BUN 7 Creatinine 0.69 Est GFR ( Amer) > 60 Est GFR (Non-Af Amer) > 60 Glucose 119 H Calcium 9.0 10/01/18 10/01/18 10/01/18 13:01 13:01 18:20 Creatine Kinase 77 90 CK-MB (CK-2) 0.72 Troponin I < 0.012 NT-Pro-B Natriuret Pep 10/01/18 10/02/18 10/02/18 18:20 00:41 00:41 Creatine Kinase 100 CK-MB (CK-2) 0.72 0.90 Troponin I < 0.012 < 0.012 NT-Pro-B Natriuret Pep 10/02/18 04:09 Creatine Kinase CK-MB (CK-2) Troponin I NT-Pro-B Natriuret Pep 171 Impressions: Cervical Spine CT 10/01/18 11:46 IMPRESSION: CHRONIC DEGENERATIVE CHANGES. NO ACUTE FINDINGS. Hip X-Ray 10/02/18 18:30 IMPRESSION: Postoperative changes of left hip hemiarthroplasty. Chest X-Ray 10/04/18 07:00 IMPRESSION: Cardiomegaly. No acute findings. Carotid Doppler Study 10/04/18 19:36 IMPRESSION: NO HEMODYNAMICALLY SIGNIFICANT STENOSIS AT THE CAROTID B IFURCATIONS. ANTEGRADE PULSATILE VERTEBRAL ARTERY FLOW BILATERALLY. HOWEVER, PATIENT DOES HAVE A POSTERIOR CIRCULATION INFARCT. CTA OF CERVICAL VESSELS SHOULD BE CONSIDERED. THIS FINDING WAS DISCUSSED WITH DR CAT Neck CTA 10/05/18 00:00 IMPRESSION: NORMAL CTA OF THE EXTRA-CRANIAL CAROTID AND VERTEBRAL ARTERIES. NORMAL CTA OF THE [place] OF LUX Head CTA 10/05/18 11:43 IMPRESSION: NORMAL CTA OF THE EXTRA-CRANIAL CAROTID AND VERTEBRAL ARTERIES. NORMAL CTA OF THE [place] OF LUX Head CT 10/06/18 08:49 IMPRESSION: Stable right posterior cerebral artery distribution infarct in the right occipital cortex and white matter Infarct in the right posterior internal capsule/ lateral basal ganglia is now more conspicuous than on prior exams and likely represents evolving nonhemorrhagic infarct EVIDENCE OF ACUTE STROKE: Yes, early subacute infarcts in the right occipital lobe and right posterior internal capsule/ lateral basal ganglia Head MRI 10/06/18 14:38 IMPRESSION: 1. Acute infarct of the right occipital lobe. 2. Acute lacunar infarct in the right thalamus. 3. Acute lacunar infarcts of the right frontal and parietal subcortical white matter. 4. No acute intracranial hemorrhage. Assessment and Plan - Diagnosis (1) Acute delirium Is this a current diagnosis for this admission?: Yes Plan: Multifactorial from UTI, recent CVA, pulmonary congestion and acute hospitalization. Family does say that patient has been suspected to have mild dementia. 10/07: Much improved with adding risperidone and buspar. Appreciate Psych recommendations. 10/08: Improved. (2) Acute CVA (cerebrovascular accident) Is this a current diagnosis for this admission?: Yes Plan: CT showed subacute CVA. Not a TPA candidate due to subacuity of CVA and patient being on Xarelto. Family also does not want to add any antiplatelet as they are not amenable to the risks of bleeding as she is already on Xarelto. 10/06: Discussed with [facility] neurology, Dr. Graham who is also patient's neurologist. She has recommended pursuing an MRI and continuing current management at the moment. (3) Left displaced femoral neck fracture Is this a current diagnosis for this admission?: Yes Plan: S/P left hemiarthroplasty on 10/02/2018. On Xarelto for DVT prophylaxis. (4) Breast cancer Qualifiers: Breast location: upper outer quadrant of breast Estrogen receptor status: positive Patient sex: female Laterality: right Qualified Code(s): C50.411 - Malignant neoplasm of upper-outer quadrant of right female breast; Z17.0 - Estrogen receptor positive status [ER+] Is this a current diagnosis for this admission?: Yes Plan: In remission. Appreciate oncology input. (5) Seizure disorder Is this a current diagnosis for this admission?: Yes Plan: Controlled. Continue Lamictal and Keppra. (6) UTI (urinary tract infection) Is this a current diagnosis for this admission?: Yes Plan: On cefazolin. 10/08: Urine culture grew pansensitive E. coli. Switch to Augmentin PO. (7) Pulmonary congestion Is this a current diagnosis for this admission?: Yes Plan: 10/04: Chest x-ray yesterday showed interstitial edema. IV fluids were discontin ued and she was given 2 doses of IV Lasix. Repeat chest x-ray this morning shows resolution of interstitial edema. (8) Hypokalemia Is this a current diagnosis for this admission?: Yes Plan: Potassium at 2.9. Replacing with oral and IV Potassium. 10/07: Improved at 3.4. 10/08: K at 3.3. Likely related to poor intake. Will start scheduled low dose KCl.
[2018-10-08] MEDS: BISACODYL 5 MG TABEC PO PRN (18:35)
[2018-10-08] MEDS: RIVAROXABAN 10 MG TABLET PO SCH (18:36)
[2018-10-08] MEDS: AMOXICILLIN TR/POT CLAVULANATE 500-125 MG TAB PO SCH (21:06)
[2018-10-08] MEDS: ATORVASTATIN CALCIUM 40 MG TABLET PO SCH (21:07)
[2018-10-08] MEDS: POTASSIUM CHLORIDE 10 MEQ CAPSULE.ER PO SCH (21:07)
[2018-10-08] MEDS: LAMICTAL 200 MG PO SCH (21:20)
[2018-10-09] MEDS: BISACODYL 5 MG TABEC PO PRN (03:37)
[2018-10-09] MEDS: KETOROLAC TROMETHAMINE INJ/PF 30 MG/1 ML SDV IV PRN (03:45)
[2018-10-09] MEDS: PANTOPRAZOLE SODIUM 40 MG TABLET.DR PO SCH (07:06)
[2018-10-09] MEDS ORDERED: ONDANSETRON HCL INJ/PF 4 MG/2 ML SDV IV PRN (07:30)
[2018-10-09] MEDS: LEVETIRACETAM 500 MG TABLET PO SCH (08:58)
[2018-10-09] MEDS: LAMICTAL 150 MG PO SCH (09:00)
[2018-10-09] MEDS: PRENATAL VITAMIN W DHA CAPSULE PO SCH (09:01)
[2018-10-09] MEDS: AMOXICILLIN TR/POT CLAVULANATE 500-125 MG TAB PO SCH (09:01)
[2018-10-09] MEDS: BUSPIRONE HCL 10 MG TABLET PO SCH (09:01)
[2018-10-09] MEDS: VITAMIN E (DL, ACETATE) 400 UNIT CAPSULE PO SCH (09:01)
[2018-10-09] MEDS: SENNOSIDES/DOCUSATE 8.6-50 MG 1 EACH TABLET PO SCH (09:01)
[2018-10-09] MEDS: POTASSIUM CHLORIDE 10 MEQ CAPSULE.ER PO SCH (09:01)
[2018-10-09] MEDS: LETROZOLE 2.5 MG TABLET PO SCH (09:02)
[2018-10-09] MEDS: OMEGA-3 ACID ETHYL ESTERS 1 GM CAPSULE PO SCH (09:03)
[2018-10-09] MEDS: RISPERIDONE 0.25 MG TABLET PO SCH (09:04)
[2018-10-09] MEDS ORDERED: POTASSIUM CHLORIDE 10 MEQ CAPSULE.ER PO ONE (09:15)
--- NOTE | 2018-10-09 10:19 | PDOC TRANSFER SUMMARY ---
General - Admit/Disc Date/PCP Admission Date/Primary Care Provider: 10/01/18 14:50 BYRON ROA MD Discharge Date: 10/09/18 - Discharge Diagnosis (1) Acute delirium Is this a current diagnosis for this admission?: Yes (2) Acute CVA (cerebrovascular accident) Is this a current diagnosis for this admission?: Yes (3) Left displaced femoral neck fracture Is this a current diagnosis for this admission?: Yes (4) Breast cancer Is this a current diagnosis for this admission?: Yes (5) Seizure disorder Is this a current diagnosis for this admission?: Yes (6) UTI (urinary tract infection) Is this a current diagnosis for this admission?: Yes (7) Pulmonary congestion Is this a current diagnosis for this admission?: Yes (8) Hypokalemia Is this a current diagnosis for this admission?: Yes - Additional Information Resuscitation Status: Do Not Resuscitate Discharge Activity: No Lifting Over 10 Pounds, No Lifting/Push/Pulling Prescriptions: Amox Tr/Potassium Clavulanate [Augmentin "500" Tablet] 1 tab PO Q12 2 Days #2 tablet Atorvastatin Calcium [Lipitor 40 mg Tablet] 40 mg PO QHS #30 tablet Buspirone HCl [Buspar 10 mg Tablet] 5 mg PO Q12 #30 tablet Potassium Chloride [Klor-Con 10 Meq Capsule ER] 20 meq PO Q12 #10 capsule.er Risperidone [Risperdal 0.25 mg Tablet] 0.25 mg PO BID #60 tablet Rivaroxaban [Xarelto 10 mg Tablet] 10 mg PO WSUPPER #21 tablet Sennosides/Docusate 8.6-50 mg [Senna Plus Tablet] 1 each PO BID PRN #20 tablet PRN Reason: Home Medications: Calcium Carbonate/Vitamin D3 [Calcium 500 + Vit D Caplet] 1 each PO BID 10/01/18 Glucosamine/D3/Boswellia Shila [Osteo Bi-Flex Tablet] 1 each PO DAILY 10/01/18 Lamotrigine [Lamictal] 300 mg PO QAM 10/01/18 Lamotrigine [Lamictal] 400 mg PO QPM 10/01/18 Letrozole [Femara 2.5 mg Tablet] 2.5 mg PO DAILY 10/01/18 Levetiracetam [Keppra 500 mg Tablet] 1,000 mg PO QAM 10/01/18 Levetiracetam [Keppra 500 mg Tablet] 1,500 mg PO QPM 10/01/18 Magnesium Oxide [Mag-Ox 400 mg Tablet] 400 mg PO DAILY 10/01/18 Multivitamin [One-A-Day Essential] 1 each PO DAILY 10/01/18 [place]-3/Dha/Epa/Fish Oil [Fish Oil 1,000 mg Softgel] 1 each PO BID 10/01/18 Pantoprazole Sodium [Protonix [address] Tablet] 40 mg PO DAILY 10/01/18 Vitamin E (Dl, Acetate) [Vitamin E 400 Unit Capsule] 400 unit PO DAILY 10/01/18 Amox Tr/Potassium Clavulanate [Augmentin "500" Tablet] 1 tab PO Q12 2 Days #2 tablet 10/09/18 Atorvastatin Calcium [Lipitor 40 mg Tablet] 40 mg PO QHS #30 tablet 10/09/18 Buspirone HCl [Buspar 10 mg Tablet] 5 mg PO Q12 #30 tablet 10/09/18 Letrozole [Femara 2.5 mg Tablet] 2.5 mg PO DAILY #0 tablet 10/09/18 [place]-3 Acid Ethyl Esters [Lovaza 1 gm Capsule] 1 gm PO DAILY@1000,2100 capsule 10/09/18 Potassium Chloride [Klor-Con 10 Meq Capsule ER] 20 meq PO Q12 #10 capsule.er 10/09/18 Risperidone [Risperdal 0.25 mg Tablet] 0.25 mg PO BID #60 tablet 10/09/18 Rivaroxaban [Xarelto 10 mg Tablet] 10 mg PO WSUPPER #21 tablet 10/09/18 Sennosides/Docusate 8.6-50 mg [Senna Plus Tablet] 1 each PO BID PRN #20 tablet 10/09/18 History of Present Illness Admission Date/PCP: 10/01/18 14:50 BYRON ROA MD Patient complains of: fall History of Present Illness: Admitting hospitalist's H&P: SUSANNA MICHELLE is a 78 year old female with history of seizure disorder, rt breast cancer s/p mastectomy, anxiety, depression came to the emergency room after a fall at home. As per the family patient is on the floor for 5 minutes she tripped and fell. She was on the floor and noticed for 5 minutes. Com plaining of left hip pain. Denies any head injuries denies any chest pains denies any loss of consciousness. Denies any other complaints. She was brought to the emergency room in the emergency room work-up was done found to have a left hip fracture and medical consult was done. Hospital Course Hospital Course: This is a 78-year-old female past medical history of breast cancer in remission and history of seizure disorder who was admitted after sustaining a left hip fracture from a fall. 10/03: Patient underwent left hemiarthroplasty by orthopedics yesterday afternoon. She was also started on Xarelto for DVT prophylaxis postop. Per RN, patient had an episode of confusion overnight and pulled her Etienne out. She also reportedly dropped her saturation to the high 80s and was placed on nasal cannula. Upon encounter, patient appears comfortable and denies any complaints. Denies any chest pain or shortness of breath. Will try to wean off O2 today and see if she really requires O2 support. Will obtain a chest x-ray. 10/04: Patient had an episode of infusion agitation overnight and had to be placed in restraints. This morning, she was given a dose of Haldol. Upon encounter, she was easily arousable and oriented to person. Chest x-ray yes terday afternoon did show interstitial edema. IV fluids were discontinued and she was given 2 doses of IV Lasix. Repeat chest x-ray this morning showed resolution of interstitial edema and congestion. 10/05: Patient's head CT last night did show a subacute left-sided infarct probably a week to 1 month old. She did sundown last night. This morning, she appears comfortable and is oriented to person. Today states she is at home. She denies other acute complaints. Denies chest pain, shortness of breath, headache, dizziness or leg pain. Her waxing and waning confusion is likely from acute delirium, multifactorial from UTI, recent surgery, pulmonary congestion and CVA in an elderly patient with possible dementia. She was not a TPA candidate due to subacuity of CVA and her being on Xarelto. Family does not want her to be on antiplatelet therapy while she's on Xarelto due to the higher risk of bleeding. She was started on Atorvastatin as well. Her sundowning and agitation significantly improve with adding risperidone and Buspar on her regimen per psych recommendations. She will complete 3 more weeks of Xarelto for post orthopedic VTE prophylaxis. Discuss switching to aspirin with PCP after completing Xarelto. She will also need 2 more days of Augmentin for her UTI. Physical Exam Vital Signs: Temp Pulse Resp BP Pulse Ox 97.7 F 79 28 H 142/61 H 96 10/09/18 07:21 10/09/18 07:21 10/09/18 07:21 10/09/18 07:21 10/09/18 07:21 Intake & Output 10/08/18 10/09/18 10/10/18 06:59 06:59 06:59 Intake Total 655 580 Output Total 1025 1250 Balance -370 -670 Weight 193 lb 9.054 oz 193 lb 1.999 oz General appearance: PRESENT: no acute distress, well-developed, well-nourished Head exam: PRESENT: atraumatic, normocephalic Eye exam: PRESENT: conjunctiva pink, EOMI, PERRLA. ABSENT: scleral icterus Ear exam: PRESENT: normal external ear exam Mouth exam: PRESENT: moist, tongue midline Neck exam: ABSENT: carotid bruit, JVD, lymphadenopathy, thyromegaly Respiratory exam: PRESENT: clear to auscultation oc. ABSENT: rales, rhonchi, wheezes Cardiovascular exam: PRESENT: RRR. ABSENT: diastolic murmur, rubs, systolic murmur Pulses: PRESENT: normal dorsalis pedis pul GI/Abdominal exam: PRESENT: normal bowel sounds, soft. ABSENT: distended, guarding, mass, organolmegaly, rebound, tenderness Rectal exam: PRESENT: deferred Neurological exam: PRESENT: alert, awake, oriented to person, CN II-XII grossly intact. ABSENT: motor sensory deficit Results Laboratory Results: 10/07/18 06:31 10/08/18 11:19 10/08/18 11:19 Sodium 138.6 Potassium 3.3 L Chloride 99 Carbon Dioxide 31 H Anion Gap 9 BUN 7 Creatinine 0.69 Est GFR ( Amer) > 60 Est GFR (Non-Af Amer) > 60 Glucose 119 H Calcium 9.0 10/01/18 10/01/18 10/01/18 13:01 13:01 18:20 Creatine Kinase 77 90 CK-MB (CK-2) 0.72 Troponin I < 0.012 NT-Pro-B Natriuret Pep 10/01/18 10/02/18 10/02/18 18:20 00:41 00:41 Creatine Kinase 100 CK-MB (CK-2) 0.72 0.90 Troponin I < 0.012 < 0.012 NT-Pro-B Natriuret Pep 10/02/18 04:09 Creatine Kinase CK-MB (CK-2) Troponin I NT-Pro-B Natriuret Pep 171 Impressions: Cervical Spine CT 10/01/18 11:46 IMPRESSION: CHRONIC DEGENERATIVE CHANGES. NO ACUTE FINDINGS. Hip X-Ray 10/02/18 18:30 IMPRESSION: Postoperative changes of left hip hemiarthroplasty. Chest X-Ray 10/04/18 07:00 IMPRESSION: Cardiomegaly. No acute findings. Carotid Doppler Study 10/04/18 19:36 IMPRESSION: NO HEMODYNAMICALLY SIGNIFICANT STENOSIS AT THE CAROTID BIFURCATIONS. ANTEGRADE PULSATILE VERTEBRAL ARTERY FLOW BILATERALLY. HOWEVER, PATIENT DOES HAVE A POSTERIOR CIRCULATION INFARCT. CTA OF CERVICAL VESSELS SHOULD BE CONSIDERED. THIS FINDING WAS DISCUSSED WITH DR CAT Neck CTA 10/05/18 00:00 IMPRESSION: NORMAL CTA OF THE EXTRA-CRANIAL CAROTID AND VERTEBRAL ARTERIES. NORMAL CTA OF THE NINILCHIK OF LUX Head CTA 10/05/18 11:43 IMPRESSION: NORMAL CTA OF THE EXTRA-CRANIAL CAROTID AND VERTEBRAL ARTERIES. NORMAL CTA OF THE NINILCHIK OF LUX Head CT 10/06/18 08:49 IMPRESSION: Stable right posterior cerebral artery distribution infarct in the right occipital cortex and white matter Infarct in the right posterior internal capsule/ lateral basal ganglia is now more conspicuous than on prior exams and likely represents evolving nonhemorrhagic infarct EVIDENCE OF ACUTE STROKE: Yes, early subacute infarcts in the right occipital lobe and right posterior internal capsule/ lateral basal ganglia Head MRI 10/06/18 14:38 IMPRESSION: 1. Acute infarct of the right occipital lobe. 2. Acute lacunar infarct in the right thalamus. 3. Acute lacunar infarcts of the right frontal and parietal subcortical white matter. 4. No acute intracranial hemorrhage. Qualifiers - * PATIENT BEING DISCHARGED WITH ANY OF THE FOLLOWING DIAGNOSIS: No Acute Heart Failure - Is this a Heart Failure Patient?: No LVEF < 40%?: No- if no continue to question #3 3. Anticoagulant therapy for permanect/persistent/paraoxysmal Afib or Aflutter: N/A
--- NOTE | 2018-10-09 11:13 | ST Inp Modified Barium Swallow ---
Medical Diagnosis - Medical Diagnoses Medical Diagnosis Description & ICD-10 Code(s): hip fracture - ICD-10 Tx Diagnosis Coding (1) Acute CVA (cerebrovascular accident) ICD-10 Code(s): I63.9 - CEREBRAL INFARCTION, UNSPECIFIED (2) Dysphagia ICD-10 Code(s): R13.10 - DYSPHAGIA, UNSPECIFIED ST Inpatient MBS - General Date: 10/09/18 Date of Onset: 10/07/18 - History -: Medical - Patient admitted for hip fracture sustained from fall. Patient status post left hemiarthroplasty on 10/02/18. Patient reported to have interstitial edema on chest x-ray that resolved with two doses of Lasix. Past medical history significant for breast cancer and history of seizure disorder. Patient reported to have waxing and waning confusion likely from acute delirium, multifactorial UTI, recent surgery, pulmonary congestion and CVA in elderly patient possibly with dementia. Physician progress note indicates nurses report confusion with sundowning last night. Per 10/06/[address] report, patient has stable right posterior cerebral artery distribution infarct in the right occipital cortex and white matter, infarct in the right posterior internal capsule/lateral basal ganglia is now more conspicuous than on prior exams and likely represents evolving non-hemorrhagic infarct. RN reported that patient coughed with water, coughing after medication administration, and then later threw up (following coughing). RN reports that emesis was from stomach and was significant volume. Family current reports some delayed coughing. Medications: Medications Reviewed Allergies: Refer to medical record - Subjective Current Nutritional Means: PO Current PO Diet: Pureed, Regular - liquids Current Symptoms: Coughing, food refusal Pain: Patient reports, 0/5 - Objective Assessment: Upright, Left Lateral - Food Trials Food Trials Used: Thin liquids, Pureed, Regular The Patient: fed by ST, via cup, via spoon, via straw - Assessment Labial Function: Within Normal Limits Lingual Function: Within Functional Limits - mild weakness Mandibular Function: Within Functional Limits Dentition: Partial Velo-Pharyngeal Function: Unremarkable Laryngeal Function: clear voicing - Pharyngeal Stage Initiation of Pharyngeal Stage: Normal Decreased Laryngeal Elevation: No Reduced Velo-Pharyngeal Closure: no Reduced Pressure Generation: Yes - mild Reduced Tongue Base Retraction: Yes - mild Pre-Swallowing Pooling in Valleculae: Mild Pre-Swallowing Pooling in Pyriforms: None Reduced Thyro-Hyiod Approximation: No Reduced Epiglottic Excursion: No Reduced Pharyngeal Peristalsis: No Multiple Swallows With: Cleared w/ Liquid Assist Post Swallow Residuals in Valleculae: Moderate - with ramona cracker trial Post Swallow Residuals in Pyriforms: None Pahryngeal Stage Comments: mild tongue weakness, possibly resulting in some residue in valleculae. Did not cue second swallow without liquid wash, with liquid wash residue cleared easily. - Esophageal Stage Esophageal Stage Comments: Possible sign of variance in upper esophagus, signs of mild retention of material. May benefit from GI consult. - Impression/Summary Laryngeal Penetration: No Tracheal Aspiration: no Compensatory Strategies: alternating bites and sips Patient Presents With: Oral-Pharyngeal dysph., Mild-Moderate Risk of Aspiration: Minimal Risk of Nutritional Compromise: WNL - Recommendations Solid Diet Recommendations: Mechanical Soft Liquid Diet Recommendations: Thin Strict Aspitarion Precautions: Yes Dysphagia Therapy with BRYOLOGIST: Yes - recommend therapy for swallowing and speech production Recommended Techniques: Fully Upright During Meal, Alternate Bites/Sips Supervision: requires assistance Other Recommendations: Recommend base of tongue and pharyngeal constriction exe rcises. - Time Total Time: 30 Total Timed Minutes: 30
--- NOTE | 2018-10-09 11:26 | RADIOLOGY REPORT (SQ) ---
EXAM DESCRIPTION: ANUPAMA SWALLOW COMPLETED DATE/TIME: 10/09/2018 10:04 am REASON FOR STUDY: cough after eating - r/o delayed cough from asp CVA COMPARISON: None. TECHNIQUE: Videofluoroscopic swallowing examination was performed in conjunction with speech patholo gy. Videofluoroscopic imaging was obtained and reviewed and these are the findings: RADIATION DOSE: 2 minutes 27 seconds of fluoroscopy was used. 1 images saved to PACS. LIMITATIONS: None FINDINGS: The patient was brought into the fluoro room and placed upright on a modified barium swall ow chair. The patient was then given multiple consistencies mixed with barium to swallow under live fluoroscopic video guidance. According to the Speech Pathologist there was no penetration or aspirat ion. Post swallow residual contrast within the vallecular. Moderate cricopharyngeal hypertrophy. IMPRESSION: NO EVIDENCE OF PENETRATION OR ASPIRATION. PLEASE SEE SPEECH PATHOLOGIST REPORT FOR OTHER FINDINGS AND RECOMMENDATIONS. COMMENT: Quality ID [id number]: Final reports for procedures using fluoroscopy that document radiation exp osure indices, or exposure time and number of fluorographic images (if radiation exposure indices are not available) TECHNICAL DOCUMENTATION: JOB ID: [id number] [employer]- All Rights Reserved Reading location - IP/workstation name: [email or web address]
[2018-10-09 12:17] VITALS: BP 128/57
== END 2018-10-09 14:06 | DRG 469 ==
LOC: ER 11:32 → EH 14:50 → 4S 19:45 → 3N 10-04 20:05
PROVIDERS: ADMIT Internal Medicine; ATTEND Internal Medicine
PROC: 0SRS0JZ Replacement of Left Hip Joint, Femoral Surface with Synthetic Substitute, Open Approach (ICD-10-PCS; principal; 2018-10-02 16:30)
DX: S72.012A Unspecified intracapsular fracture of left femur, initial encounter for closed fracture (principal); I63.9 Cerebral infarction, unspecified; N39.0 Urinary tract infection, site not specified; F05 Delirium due to known physiological condition; Y92.009 Unspecified place in unspecified non-institutional (private) residence as the place of occurrence of the external cause; I10 Essential (primary) hypertension; Z85.3 Personal history of malignant neoplasm of breast; Z91.09 Other allergy status, other than to drugs and biological substances; Z88.8 Allergy status to other drugs, medicaments and biological substances; K21.0 Gastro-esophageal reflux disease with esophagitis; M19.90 Unspecified osteoarthritis, unspecified site; E78.5 Hyperlipidemia, unspecified; R09.89 Other specified symptoms and signs involving the circulatory and respiratory systems; E87.6 Hypokalemia; W01.0XXA Fall on same level from slipping, tripping and stumbling without subsequent striking against object, initial encounter; G40.909 Epilepsy, unspecified, not intractable, without status epilepticus; F41.9 Anxiety disorder, unspecified; F32.9 Major depressive disorder, single episode, unspecified
CPT/HCPCS: 01210; 36415; 36600; 70450; 70496; 70498; 70551; 71045; 72125; 74230; 80048; 80053; 80061; 80175; 80177; 81001; 82550; 82553; 82803; 82962; 83036; 83735; 83880; 84132; 84439; 84443; 84481; 84484; 85025; 85027; 85610; 87070; 87086; 87088; 87186; 88305; 88311; 93005; 93010; 93880; 94667; 94668; 96374; 99285; C1776; C9290; J0171; J0690; J1100; J1630; J1885; J1940; J2060; J2250; J2270; J2405; J2704; J3010; J3480; J3490; J7060; J7120; J7620